=== PATIENT | male | born 1975 | race Caucasian/White ===

== ENCOUNTER 2017-06-17 13:18 | Emergency (ER) | payer OTHER ==
--- NOTE | 2017-06-17 14:44 | ED ---
Seizure HPI - General Chief Complaint: Seizure Stated Complaint: Seizure Time Seen by Provider: 06/17/17 14:03 Source: patient Mode of arrival: ambulatory Limitations: no limitations - History of Present Illness Initial Comments: 41-year-old male with no past medical history presented for evaluation of seizures. He states in the last month he has had 3 seizures however he denies any past medical history of seizures. He takes no daily medications and denies starting any new medications. Denies any preceding trauma however each syncopal moments/seizure has resulted in some trauma with bruising to his torso and his face. He states on his last seizure which occurred 2 days ago he fell flat on his face and when he came around he had bleeding from his nose and a black eye. He also bit his tongue during this episode. There are no preceding symptoms of chest pain, ataxia, shortness of breath, change in vision, or dizziness. Denies fevers chills nausea vomiting. His brother has witnessed 2 of these episodes and states that he falls and is shaking on the ground for a few seconds. When he comes back around he is confused for about a minute and then is back at baseline. - Related Data Home Medications Medication Instructions Recorded Confirmed No Known Home Medications [No 06/17/17 06/17/17 Known Home Medications] Allergies Allergy/AdvReac Type Severity Reaction Status Date / Time Penicillins Allergy Swelling Verified 06/17/17 14:08 Review of Systems ROS Statement: Those systems with pertinent positive or pertinent negative responses have been documented in the HPI. ROS Other: All systems not noted in ROS Statement are negative. Constitutional: Denies: fever, chills Eyes: Denies: eye pain, eye discharge, vision change ENT: Reports: epistaxis (during the last episode), other (laceration to tongue) . Denies: ear pain, throat pain, congestion Respiratory: Denies: cough, dyspnea, wheezes, hemoptysis Cardiovascular: Denies: chest pain, palpitations Endocrine: Denies: fatigue, polydipsia, polyuria Gastrointestinal: Denies: abdominal pain, nausea, vomiting, diarrhea, constipation, hematemesis, melena, hematochezia Genitourinary: Denies: urgency, dysuria, frequency, hematuria Musculoskeletal: Denies: back pain, arthralgia, myalgia Skin: Denies: rash, lesions Neurological: Reports: confusion (mild following the episode lasting less than a minute), other (seizure activity with syncope). Denies: headache, weakness, numbness, paresthesias Psychiatric: Denies: anxiety, depression Hematological/Lymphatic: Denies: easy bleeding, easy bruising Past Medical History Past Medical History: No Reported History History of Any Multi-Drug Resistant Organisms: None Reported Past Surgical History: No Surgical Hx Reported Past Psychological History: No Psychological Hx Reported Smoking Status: Current every day smoker Past Alcohol Use History: None Reported Past Drug Use History: None Reported General Exam Limitations: no limitations General appearance: alert, in no apparent distress Head exam: Present: normocephalic, other (ecchymosis around the right eye, possible deformity to nose) Eye exam: Present: normal appearance, PERRL, EOMI. Absent: scleral icterus, conjunctival injection, periorbital swelling ENT exam: Present: mucous membranes moist, other (laceration to tongue that is in early stages of healing) Neck exam: Present: normal inspection. Absent: tenderness, meningismus, lymphadenopathy Respiratory exam: Present: normal lung sounds bilaterally. Absent: respiratory distress, wheezes, rales, rhonchi, stridor Cardiovascular Exam: Present: regular rate, normal rhythm, normal heart sounds. Absent: systolic murmur, diastolic murmur, rubs, gallop, clicks GI/Abdominal exam: Present: soft, normal bowel sounds. Absent: distended, tenderness, guarding, rebound, rigid Rectal exam: Present: deferred Extremities exam: Present: normal inspection, full ROM, normal capillary refill. Absent: tenderness, pedal edema, joint swelling, calf tenderness Back exam: Present: full ROM, other (left lateral back bruising nontender to palpation). Absent: tenderness, CVA tenderness (R), CVA tenderness (L) Neurological exam: Present: alert, oriented X3, CN II-XII intact, normal gait, reflexes normal. Absent: altered, abnormal gait, motor sensory deficit Psychiatric exam: Present: normal affect, normal mood Skin exam: Present: warm, dry, intact, normal color. Absent: rash Course Vital Signs 06/17/17 06/17/17 06/17/17 13:31 14:47 15:04 Temperature 98.5 F Pulse Rate 85 74 Pulse Rate [ 101 H Right Sitting] Pulse Rate [ 115 H Right Standing] Pulse Rate [ 71 Right Supine] Respiratory 18 16 Rate Blood Pressure 143/89 153/90 Blood Pressure 136/93 [Right Arm Standing] Blood Pressure 142/90 [Right Arm Supine] Blood Pressure 137/97 [Sitting] O2 Sat by Pulse 100 98 Oximetry 06/17/17 16:00 Temperature 98.8 F Pulse Rate 89 Pulse Rate [ Right Sitting] Pulse Rate [ Right Standing] Pulse Rate [ Right Supine] Respiratory 16 Rate Blood Pressure 146/93 Blood Pressure [Right Arm Standing] Blood Pressure [Right Arm Supine] Blood Pressure [Sitting] O2 Sat by Pulse 98 Oximetry Medical Decision Making - Medical Decision Making 41-year-old male presented for evaluation of 3 seizures in the last month. Seizures were witnessed and lasted less than a minute. He would come around and be confused for less than a minute and then be back at baseline. There is no past medical history of seizures. No other changes in his medical history at this time. On physical examination he does have bruising to the right eye, left lateral back, but otherwise no abnormalities. Cranial nerves II through XII intact without focal neurologic deficits and he has normal gait and station. Given that this is his first episode of syncope/seizures we'll obtain a CT head as well as baseline labs. We'll also get orthostatic vitals. Labs revealed no significant abnormalities and CT head showed no acute process. The patient was reevaluated and had no change in his physical exam. He was informed of all results and through shared decision making was informed he would be discharged with instructions to not return to work until cleared by neurologist. His further advised that he could not drive a car or operate heavy machinery. Further given return instructions. Patient acknowledged an understanding of all phonation provided and agreed with this plan of care. - Lab Data Result diagrams: 06/17/17 14:50 06/17/17 14:50 Lab Results 06/17/17 06/17/17 06/17/17 Range/Units 14:50 14:50 14:50 WBC 8.8 (3.8-10.6) k/uL RBC 4.24 L (4.30-5.90) m/uL Hgb 13.7 (13.0-17.5) gm/dL Hct 41.4 (39.0-53.0) % MCV 97.7 (80.0-100.0) fL MCH 32.4 (25.0-35.0) pg MCHC 33.1 (31.0-37.0) g/dL RDW 13.3 (11.5-15.5) % Plt Count 92 L (150-450) k/uL Neutrophils % 73 % Lymphocytes % 9 % Monocytes % 7 % Eosinophils % 9 % Basophils % 0 % Neutrophils # 6.4 (1.3-7.7) k/uL Lymphocytes # 0.8 L (1.0-4.8) k/uL Monocytes # 0.6 (0-1.0) k/uL Eosinophils # 0.8 H (0-0.7) k/uL Basophils # 0.0 (0-0.2) k/uL Sodium 136 L (137-145) mmol/L Potassium 3.8 (3.5-5.1) mmol/L Chloride 98 (98-107) mmol/L Carbon Dioxide 25 (22-30) mmol/L Anion Gap 13 mmol/L BUN 16 (9-20) mg/dL Creatinine 0.74 (0.66-1.25) mg/dL Est GFR (MDRD) Af Amer >60 (>60 ml/min/1.73 sqM) Est GFR (MDRD) Non-Af >60 (>60 ml/min/1.73 sqM) Glucose 97 (74-99) mg/dL Calcium 10.4 H (8.4-10.2) mg/dL Troponin I <0.012 (0.000-0.034) ng/mL 06/17/17 16:19 normal sinus rhythm with a ventricular rate of 75, EVA 152, QRS 84, QT/QTc 410/ 457. Disposition Clinical Impression: Syncope Disposition: HOME SELF-CARE Condition: Stable Instructions: New-Onset Seizure in Adults (ED) Additional Instructions: please follow up with the neurologist that is provided and discussed discharge paperwork. He must not drive or operate heavy machinery until cleared by a neurologist to return back to work. If her symptoms should continue or persist or usually have a recurrence he must come back to the ER immediately for further treatment and evaluation Referrals: None,Stated [Primary Care Provider] - 1-2 days Brisa Lowery MD [STAFF PHYSICIAN] - 1-2 days Time of Disposition: 16:18
[2017-06-17 14:52] VITALS: RESP 16
[2017-06-17 15:09] LABS: Anion Gap 13 mmol/L; Blood Urea Nitrogen 16 mg/dL (9-20); Calcium 10.4 mg/dL (8.4-10.2); Carbon Dioxide 25 mmol/L (22-30); Chloride 98 mmol/L (98-107); Glucose 97 mg/dL (74-99); Non-African American GFR(MDRD) >60 (>60 ml/min/1.73 sqM); Potassium 3.8 mmol/L (3.5-5.1); Sodium 136 mmol/L (137-145)
[2017-06-17 15:13] LABS: Basophils % (A) 0 %; CH 32.8; CHCM 33.7; Eosinophils # (A) 0.8 k/uL (0-0.7); Eosinophils % (A) 9 %; HCT 41.4 % (39.0-53.0); HDW 1.96; HGB 13.7 gm/dL (13.0-17.5); Luc # (Auto) 0.16; Luc % (Auto) 2; Lymphocytes # (A) 0.8 k/uL (1.0-4.8); Lymphocytes % (A) 9 %; MCH 32.4 pg (25.0-35.0); MCHC 33.1 g/dL (31.0-37.0); MCV 97.7 fL (80.0-100.0); Mean Platelet Volume 8.9; Monocytes # (A) 0.6 k/uL (0-1.0); Monocytes % (A) 7 %; Neutrophils # (A) 6.4 k/uL (1.3-7.7); Neutrophils % (A) 73 %; RBC 4.24 m/uL (4.30-5.90); RDW 13.3 % (11.5-15.5); WBC 8.8 k/uL (3.8-10.6)
--- NOTE | 2017-06-17 15:39 | CT ---
EXAMINATION TYPE: CT brain wo con DATE OF EXAM: 06/17/2017 COMPARISON: NONE INDICATION: Recent seizures, history of seizures. DLP: 990.60 mGycm, Automated exposure control for dose reduction was used. CONTRAST: None CT of the brain is performed utilizing 3 mm thick sections through the posterior fossa and 3 mm thick sections through the remaining calvarium. Study is performed within 24 hours of arrival to the hosp [facility]. No abnormal hyperdensity is present to suggest an acute intracranial hemorrhage. No mass lesion is evident. No acute infarcts are evident. Ventricles and sulci are appropriate for the patient age. Paranasal sinuses and mastoid air cells within the [id number] are clear. IMPRESSIONS: 1. Normal CT Brain
[2017-06-17 16:01] VITALS: BP 146/93; PULSE 89; TEMP 98.8
== END 2017-06-17 16:25 | disposition home or self-care (01) ==
LOC: EC 13:18
DX: R55 Syncope and collapse (principal); R41.0 Disorientation, unspecified; F17.200 Nicotine dependence, unspecified, uncomplicated; Z88.0 Allergy status to penicillin
CPT/HCPCS: 36415; 70450; 80048; 84484; 85025; 93005; 99285

== ENCOUNTER 2019-08-04 15:58 | Observation (INO) | payer OTHER ==
[2019-08-04 18:18] LABS: Basophils % (A) 1 %; Eosinophils # (A) 0.1 k/uL (0-0.7); Eosinophils % (A) 1 %; HCT 48.1 % (39.0-53.0); HGB 15.7 gm/dL (13.0-17.5); Lymphocytes # (A) 1.9 k/uL (1.0-4.8); Lymphocytes % (A) 29 %; MCH 29.6 pg (25.0-35.0); MCHC 32.7 g/dL (31.0-37.0); MCV 90.3 fL (80.0-100.0); Mean Platelet Volume 6.9; Monocytes # (A) 0.5 k/uL (0-1.0); Monocytes % (A) 7 %; Neutrophils # (A) 3.8 k/uL (1.3-7.7); Neutrophils % (A) 60 %; Platelet Count 275 k/uL (150-450); RBC 5.33 m/uL (4.30-5.90); RDW 13.8 % (11.5-15.5); WBC 6.3 k/uL (3.8-10.6)
--- NOTE | 2019-08-04 18:21 | ED ---
General Adult HPI - General Chief complaint: Recheck/Abnormal Lab/Rx Stated complaint: alcohol detox Time Seen by Provider: 08/04/19 16:58 Source: patient Mode of arrival: ambulatory Limitations: no limitations - History of Present Illness Initial comments: Patient is a 43-year-old male with history of alcohol abuse presenting to the emergency department with chief complaint of alcohol intoxication. Patient reports he was sober for about 6 months ago as to regular AA meetings. Patient reports about a week ago his family member of suicide. Patient reports he began drinking again and has not stopped since. Patient reports drinking more than a fifth earlier today. Patient reports he contacted his AA sponsors was suggested he come to the ED for further evaluation/detoxication until he is able to be transferred to [place] for further management. Patient denies taking medication. Patient denies suicidal thoughts or ideation. Denies any some homicidal thoughts or ideations - Related Data Home Medications Medication Instructions Recorded Confirmed No Known Home Medications 06/17/17 06/17/17 Allergies Allergy/AdvReac Type Severity Reaction Status Date / Time Penicillins Allergy Swelling Verified 08/04/19 16:26 Review of Systems ROS Statement: Those systems with pertinent positive or pertinent negative responses have been documented in the HPI. ROS Other: All systems not noted in ROS Statement are negative. Past Medical History Past Medical History: No Reported History History of Any Multi-Drug Resistant Organisms: None Reported Past Surgical History: No Surgical Hx Reported Past Psychological History: Depression, PTSD Smoking Status: Current every day smoker Past Alcohol Use History: Abuse, Daily, Heavy Past Drug Use History: None Reported General Exam Limitations: no limitations General appearance: alert, in no apparent distress Head exam: Present: atraumatic, normocephalic, normal inspection Eye exam: Present: normal appearance, PERRL, EOMI Pupils: Present: normal accommodation ENT exam: Present: normal exam, normal oropharynx, mucous membranes moist, TM's normal bilaterally, normal external ear exam Neck exam: Present: normal inspection, full ROM Respiratory exam: Present: normal lung sounds bilaterally Cardiovascular Exam: Present: regular rate, normal rhythm, normal heart sounds Extremities exam: Present: normal inspection, full ROM Back exam: Present: normal inspection, full ROM Neurological exam: Present: alert, oriented X3 Psychiatric exam: Present: normal affect, normal mood Skin exam: Present: warm, dry, intact, normal color Course Vital Signs 08/04/19 16:26 Temperature 98 F Pulse Rate 103 H Respiratory 18 Rate Blood Pressure 153/107 O2 Sat by Pulse 96 Oximetry Medical Decision Making - Medical Decision Making Patient is a 43-year-old male with history of to alcohol abuse presenting to emergency Department with a chief complaint alcohol intoxication. Examination is unremarkable. Patient has no complaints at this time. Patient had a BAT of 0.304. Patient will be admitted further medical management. CBC unremarkable. CMP still pending. Urine drug screen pending. She will be admitted for further management. Case discussed with Dr. León. Admitting physician is Dr. James Disposition Clinical Impression: Alcohol intoxication Disposition: ADMITTED IP TO THIS HOSP Condition: Stable Instructions (If sedation given, give patient instructions): Abuse of Alcohol (DC) Additional Instructions: Patient will be admitted Is patient prescribed a controlled substance at d/c from ED?: No Referrals: None,Stated [Primary Care Provider] - 1-2 days Time of Disposition: 18:20
[2019-08-04 18:36] LABS: ALT 25 U/L (4-49); AST 46 U/L (17-59); African American GFR (CKD) >90 (>60 ml/min/1.73 sqM); Alkaline Phosphatase 76 U/L (38-126); Anion Gap 13 mmol/L; Blood Urea Nitrogen 9 mg/dL (9-20); Calcium 9.7 mg/dL (8.4-10.2); Carbon Dioxide 27 mmol/L (22-30); Chloride 105 mmol/L (98-107); Glucose 93 mg/dL (74-99); Non-African American GFR(CKD) >90 (>60 ml/min/1.73 sqM); Potassium 4.3 mmol/L (3.5-5.1); Sodium 145 mmol/L (137-145); Total Bilirubin 0.5 mg/dL (0.2-1.3); Total Protein 8.6 g/dL (6.3-8.2)
[2019-08-04 18:56] LABS: Appearance,Urine Clear (Clear); Bilirubin,Urine Negative (Negative); Blood,Urine Negative (Negative); Color,Urine Yellow; Glucose,Urine (UA) Negative (Negative); Ketones,Urine Trace (Negative); Leukocyte Esterase,Urine Negative (Negative); Nitrite,Urine Negative (Negative); PH, Urine 7.5 (5.0-8.0); Protein,Urine Trace (Negative); Specific Gravity,Urine 1.011 (1.001-1.035); Urobilinogen,Urine <2.0 mg/dL (<2.0)
[2019-08-04 19:08] LABS: Amphetamine Screen,Urine Not Detected (NotDetected); Cocaine Screen,Urine Not Detected (NotDetected); Opiate Screen,Urine Not Detected (NotDetected); Phencyclidine Screen,Urine Not Detected (NotDetected); Urn Cannabinoid Scrn Not Detected (NotDetected)
[2019-08-04 19:09] LABS: Barbiturate Screen,Urine Not Detected (NotDetected); Benzodiazepines Screen,Urine Not Detected (NotDetected); Methadone Screen, Urine Not Detected (NotDetected); Oxycodone Screen, Urine Not Detected (NotDetected); Tricyclic Antidepressant,Urine Not Detected (NotDetected)
[2019-08-04] MEDS ORDERED: NALOXONE 0.4 MG/ML 1 ML VIAL IV PRN (21:06)
[2019-08-04] MEDS ORDERED: THIAMINE 100 MG/ML 2 ML VIAL IM STA (21:07)
[2019-08-04] MEDS ORDERED: LORazepam 2 MG/ML INJ IV PRN ×2 (21:07)
[2019-08-04] MEDS: THIAMINE 100 MG TAB PO SCH (22:03)
[2019-08-04] MEDS: LORazepam 2 MG/ML INJ IV PRN (23:42)
[2019-08-05] MEDS: LORazepam 2 MG/ML INJ IV PRN ×5 (06:12→20:30)
[2019-08-05] MEDS: THIAMINE 100 MG TAB PO SCH ×2 (08:27→15:55)
--- NOTE | 2019-08-05 20:23 | HP ---
HISTORY AND PHYSICAL 43-year-old white male came in with alcohol abuse, presenting alcohol intoxication. His was sober for 6 months. He has been going to AA meetings and then a week ago a family member of suicide at which time he began drinking again and nonstop and drank more than a fifth earlier today. His AA sponsor sent him to the ED for intoxication and possibly transfer to [place] once he is better. The patient denies suicidal ideation. He states normally when he is in the hospital it takes 3 or 4 days for him to detox. MEDICATIONS: None. ALLERGIES: PENICILLIN. REVIEW OF SYSTEMS: Fourteen-point review of systems negative except for mentioned in HPI. PAST MEDICAL HISTORY: Depression, PTSD. SOCIAL HISTORY: Current everyday smoker, alcohol abuse heavy for multiple years. PHYSICAL EXAMINATION: Vital signs stable, afebrile. CARDIOVASCULAR: S1, S2. LUNGS: Clear. GI: Soft. HEMATOLOGY: Negative Homans. NEUROLOGIC: Mild tremor. PSYCH: Fair affect, giving appropriate answers. Temp 98, pulse is 103, respiratory 18-20, blood pressure 153/107, O2 saturation 96%. Blood alcohol level was 0.3. Detox protocol, CIWA protocol, monitor electrolytes, monitor for signs of seizures as he has a history of seizures due to alcohol in the past. Continue current treatment. MMODL / IJN: [id number] /
[2019-08-06] MEDS: LORazepam 2 MG/ML INJ IV PRN ×4 (05:53→20:30)
[2019-08-06 07:30] LABS: Basophils % (A) 1 %; Eosinophils # (A) 0.5 k/uL (0-0.7); Eosinophils % (A) 6 %; HCT 45.6 % (39.0-53.0); HGB 15.1 gm/dL (13.0-17.5); Lymphocytes # (A) 1.4 k/uL (1.0-4.8); Lymphocytes % (A) 17 %; MCH 30.7 pg (25.0-35.0); MCHC 33.1 g/dL (31.0-37.0); MCV 92.6 fL (80.0-100.0); Mean Platelet Volume 7.5; Monocytes # (A) 0.5 k/uL (0-1.0); Monocytes % (A) 6 %; Neutrophils # (A) 5.5 k/uL (1.3-7.7); Neutrophils % (A) 69 %; Platelet Count 232 k/uL (150-450); RBC 4.92 m/uL (4.30-5.90); RDW 13.6 % (11.5-15.5)
[2019-08-06] MEDS: THIAMINE 100 MG TAB PO SCH ×2 (07:32→17:00)
[2019-08-06 07:46] LABS: ALT 28 U/L (4-49); AST 50 U/L (17-59); African American GFR (CKD) >90 (>60 ml/min/1.73 sqM); Albumin 4.4 g/dL (3.5-5.0); Alkaline Phosphatase 57 U/L (38-126); Anion Gap 9 mmol/L; Blood Urea Nitrogen 15 mg/dL (9-20); Calcium 9.6 mg/dL (8.4-10.2); Carbon Dioxide 25 mmol/L (22-30); Chloride 102 mmol/L (98-107); Glucose 112 mg/dL (74-99); Non-African American GFR(CKD) >90 (>60 ml/min/1.73 sqM); Potassium 4.1 mmol/L (3.5-5.1); Sodium 136 mmol/L (137-145); Total Bilirubin 1.4 mg/dL (0.2-1.3); Total Protein 7.6 g/dL (6.3-8.2)
--- NOTE | 2019-08-06 17:02 | PN ---
PROGRESS NOTE This is a 43-year-old white male admitted with alcohol intoxication and alcohol withdrawal. He is on CIWA protocol, was given Ativan every 4 hours. Cardiovascular S1-S2. Lungs clear. Neurologic: He has minimal tremor. Psych: Fair mood and affect. He wants to go to [place] when he gets out of here. Possible discharge tomorrow. Check electrolytes. His labs have been stable his whole time he has been here. He is mostly to withdrawal. Possibly discharge home tomorrow. MMODL / IJN: [id number] /
[2019-08-07 08:14] VITALS: BP 131/87; PULSE 70; RESP 16; TEMP 97.8
[2019-08-07] MEDS: THIAMINE 100 MG TAB PO SCH (08:27)
--- NOTE | 2019-08-07 16:56 | P.DS ---
Providers Date of admission: 08/04/19 17:42 Expected date of discharge: 08/07/19 Attending physician: Vik James Primary care physician: Stated None Hospital Course: Final Diagnoses: Alcohol intoxication, DTs This is a 43-year-old gentleman admitted with alcohol intoxication, DTs. Maintained on CIWA protocol. Significant clinical improvement. Patient is being discharged to [facility] in a stable condition with guarded prognosis. EXAM: GENERAL: Alert and oriented 3, no acute distress CARDIOVASCULAR: S1, S2 regular.. No murmur RESPIRATION: Breath sounds clear, diminished in the bases. ABDOMEN: Soft, nontender . No guarding. no masses palpable. No ascites, Bowel sounds heard. NERVOUS SYSTEM: Cranial N 2-12 grossly normal. Moves all 4 limbs. No focal deficits. No tremors The impression and plan of care has been dictated as directed. : I performed a history and examination of this patient, discussed the same with the dictator. I agree with the dictator's note ,documented as a scribe. Any additional findings or plans will be noted. Patient Condition at Discharge: Stable Plan - Discharge Summary Discharge Rx Participant: No New Discharge Prescriptions: Continue Riboflavin [Vitamin B-2] 50 mg PO DAILY Thiamine [Vitamin B-1] 100 mg PO DAILY Multivitamins, Thera [Multivitamin (formulary)] 1 tab PO DAILY Vitamin D3(Unknown Dose) 1 tab PO DAILY Vitamin B Complex 1 cap PO DAILY Discharge Medication List Multivitamins, Thera [Multivitamin (formulary)] 1 tab PO DAILY 08/04/19 [History] Riboflavin [Vitamin B-2] 50 mg PO DAILY 08/04/19 [History] Thiamine [Vitamin B-1] 100 mg PO DAILY 08/04/19 [History] Vitamin B Complex 1 cap PO DAILY 08/04/19 [History] Vitamin D3(Unknown Dose) 1 tab PO DAILY 08/04/19 [History] Follow up Appointment(s)/Referral(s): [facility],Clinic [REFERRING] - 1 Week (Patient to make own appointment) Patient Instructions/Handouts: Abuse of Alcohol (DC), Alcohol Withdrawal (DC) Activity/Diet/Wound Care/Special Instructions: [place] Discharge Disposition: HOME SELF-CARE
== END 2019-08-07 13:47 | disposition home or self-care (01) ==
LOC: EC 15:58 → 4SSUR 17:42
PROVIDERS: ADMIT Family Medicine; ATTEND Family Medicine
DX: F10.229 Alcohol dependence with intoxication, unspecified (principal); F10.239 Alcohol dependence with withdrawal, unspecified; Y90.8 Blood alcohol level of 240 mg/100 ml or more; F32.9 Major depressive disorder, single episode, unspecified; F43.10 Post-traumatic stress disorder, unspecified; F17.200 Nicotine dependence, unspecified, uncomplicated
CPT/HCPCS: 96376 ×2; 96374; 96372; 82075; 99284; 36415; 80053 ×2; 85025 ×2; 81003; 80306; G0378 ×4; J2060 ×3; J3411

== ENCOUNTER 2020-02-18 15:05 | Inpatient (IN) | payer OTHER ==
[2020-02-18] MEDS ORDERED: ONDANSETRON 4 MG/2 ML VIAL IVP STA (15:26)
[2020-02-18] MEDS ORDERED: SODIUM CHLORIDE 0.9% 500 ML 500 ML IV STA (15:26)
[2020-02-18] MEDS ORDERED: LORazepam 2 MG/ML INJ IV STA (15:52)
--- NOTE | 2020-02-18 15:55 | ED ---
Alcohol HPI - General Chief Complaint: Alcohol Stated Complaint: alcohol detox Time Seen by Provider: 02/18/20 15:18 Source: patient Mode of arrival: ambulatory Limitations: no limitations - History of Present Illness Initial Comments: Patient is a 44-year-old male presenting to the emergency Department with complaints of alcohol withdrawal. Patient states he was sober for approximately 6 months and then this past week he has been binge drinking again. Patient states he had approximate 6-7 shots today. He states he is starting to have "shaking and hallucinations." Patient states he has had seizures in the past from withdrawal. He states he has not slept in approximately 2-3 days. He denies having any suicidal or homicidal thoughts today. He denies having pain anywhere. He admits to some mild nausea, no vomiting, no recent fever or chil ls. He denies any chest pain or shortness of breath. He has no further complaints at this time. Upon arrival to the ER, his vital signs are stable. - Related Data Home Medications Medication Instructions Recorded Confirmed Multivitamins, Thera [Multivitamin 1 tab PO DAILY 08/04/19 08/04/19 (formulary)] Riboflavin (Vitamin B2) [Vitamin 50 mg PO DAILY 08/04/19 08/04/19 B-2] Thiamine [Vitamin B-1] 100 mg PO DAILY 08/04/19 08/04/19 Vitamin B Complex 1 cap PO DAILY 08/04/19 08/04/19 Vitamin D3(Unknown Dose) 1 tab PO DAILY 08/04/19 08/04/19 Allergies Allergy/AdvReac Type Severity Reaction Status Date / Time Penicillins Allergy Swelling/Ra Verified 02/18/20 15:17 Review of Systems ROS Statement: Those systems with pertinent positive or pertinent negative responses have been documented in the HPI. ROS Other: All systems not noted in ROS Statement are negative. Past Medical History Past Medical History: No Reported History Additional Past Medical History / Comment(s): [place] about 3 years History of Any Multi-Drug Resistant Organisms: None Reported Past Surgical History: No Surgical Hx Reported Past Anesthesia/Blood Transfusion Reactions: Unable to Obtain Past Psychological History: Depression, PTSD Past Alcohol Use History: Abuse, Daily, Heavy Past Drug Use History: None Reported General Exam - General Exam Comments Initial Comments: GENERAL: Patient is well-developed and well-nourished. Patient is nontoxic and in no acute distress, appears anxious, mild tremors. HEAD: Atraumatic, normocephalic. EYES: Pupils equal round and reactive to light, extraocular movements intact, sclera anicteric, conjunctiva are normal. Eyelids were unremarkable. ENT: TMs normal, nares patent, oropharynx clear without exudates. Moist mucous membranes. NECK: Normal range of motion, supple without lymphadenopathy or JVD. LUNGS: Unlabored respirations. Breath sounds clear to auscultation bilaterally and equal. No wheezes rales or rhonchi. HEART: Regular rate and rhythm without murmurs, rubs or gallops. ABDOMEN: Soft, nontender, normoactive bowel sounds. No guarding, no rebound. No masses appreciated. : Deferred MUSCULOSKELETAL: Normal extremities with adequate strength and normal range of motion, no pitting or edema. No clubbing or cyanosis. NEUROLOGICAL: Patient is alert and oriented x 3. Motor and sensory are also intact. Cranial nerves II through XII grossly intact. Normal speech, normal gait. Symmetrical smile. Mild tremors present PSYCH: Normal mood, normal affect. SKIN: Warm, Dry, normal turgor, no rashes or lesions noted. Limitations: no limitations Course Vital Signs 02/18/20 15:14 Temperature 98.2 F Pulse Rate 109 H Respiratory 18 Rate Blood Pressure 146/82 O2 Sat by Pulse 99 Oximetry Medical Decision Making - Medical Decision Making Patient is a 44-year-old male here for alcohol withdrawal. He has been sober for 6 months, started been drinking this week. He he does admit to drinking today. Patient's vital signs are stable, his exam is unremarkable. Patient is having some mild tremors. Patient's labs reveal no acute process, urine is normal, urine drug screen is negative. Patient's serum alcohol is 269. Patient does have some tremors. Patient was given Ativan is comfortable at this time. Patient will be admitted for alcohol intoxication, withdrawal. Patient was accepted by Dr. Martinez. Can discussed with Dr. León. - Lab Data Result diagrams: 02/18/20 15:44 02/18/20 15:44 Lab Results 02/18/20 02/18/20 02/18/20 Range/Units 15:44 15:44 16:14 WBC 11.0 H (3.8-10.6) k/uL RBC 5.35 (4.30-5.90) m/uL Hgb 15.1 (13.0-17.5) gm/dL Hct 47.2 (39.0-53.0) % MCV 88.1 (80.0-100.0) fL MCH 28.2 (25.0-35.0) pg MCHC 32.0 (31.0-37.0) g/dL RDW 12.9 (11.5-15.5) % Plt Count 272 (150-450) k/uL Neutrophils % 75 % Lymphocytes % 17 % Monocytes % 6 % Eosinophils % 1 % Basophils % 0 % Neutrophils # 8.2 H (1.3-7.7) k/uL Lymphocytes # 1.9 (1.0-4.8) k/uL Monocytes # 0.7 (0-1.0) k/uL Eosinophils # 0.1 (0-0.7) k/uL Basophils # 0.1 (0-0.2) k/uL Sodium 139 (137-145) mmol/L Potassium 3.9 (3.5-5.1) mmol/L Chloride 99 (98-107) mmol/L Carbon Dioxide 25 (22-30) mmol/L Anion Gap 15 mmol/L BUN 6 L (9-20) mg/dL Creatinine 0.74 (0.66-1.25) mg/dL Est GFR (CKD-EPI)AfAm >90 (>60 ml/min/1.73 sqM) Est GFR (CKD-EPI)NonAf >90 (>60 ml/min/1.73 sqM) Glucose 122 H (74-99) mg/dL Calcium 9.5 (8.4-10.2) mg/dL Total Bilirubin 0.7 (0.2-1.3) mg/dL AST 104 H (17-59) U/L ALT 38 (4-49) U/L Alkaline Phosphatase 95 (38-126) U/L Total Protein 8.3 H (6.3-8.2) g/dL Albumin 5.2 H (3.5-5.0) g/dL Urine Color Light Yellow Urine Appearance Clear (Clear) Urine pH 6.5 (5.0-8.0) Ur Specific [place] 1.005 (1.001-1.035) Urine Protein 1+ H (Negative) Urine Glucose (UA) Negative (Negative) Urine Ketones Negative (Negative) Urine Blood Small H (Negative) Urine Nitrite Negative (Negative) Urine Bilirubin Negative (Negative) Urine Urobilinogen <2.0 (<2.0) mg/dL Ur Leukocyte Esterase Negative (Negative) Urine RBC 1 (0-5) /hpf Urine WBC 1 (0-5) /hpf Urine Mucus Rare H (None) /hpf Urine Opiates Screen (NotDetected) Ur Oxycodone Screen (NotDetected) Urine Methadone Screen (NotDetected) Ur Propoxyphene Screen (NotDetected) Ur Barbiturates Screen (NotDetected) U Tricyclic Antidepress (NotDetected) Ur Phencyclidine Scrn (NotDetected) Ur Amphetamines Screen (NotDetected) U Methamphetamines Scrn (NotDetected) U Benzodiazepines Scrn (NotDetected) Urine Cocaine Screen (NotDetected) U Marijuana (THC) Screen (NotDetected) Serum Alcohol 269 H* mg/dL 02/18/20 Range/Units 16:14 WBC (3.8-10.6) k/uL RBC (4.30-5.90) m/uL Hgb (13.0-17.5) gm/dL Hct (39.0-53.0) % MCV (80.0-100.0) fL MCH (25.0-35.0) pg MCHC (31.0-37.0) g/dL RDW (11.5-15.5) % Plt Count (150-450) k/uL Neutrophils % % Lymphocytes % % Monocytes % % Eosinophils % % Basophils % % Neutrophils # (1.3-7.7) k/uL Lymphocytes # (1.0-4.8) k/uL Monocytes # (0-1.0) k/uL Eosinophils # (0-0.7) k/uL Basophils # (0-0.2) k/uL Sodium (137-145) mmol/L Potassium (3.5-5.1) mmol/L Chloride (98-107) mmol/L Carbon Dioxide (22-30) mmol/L Anion Gap mmol/L BUN (9-20) mg/dL Creatinine (0.66-1.25) mg/dL Est GFR (CKD-EPI)AfAm (>60 ml/min/1.73 sqM) Est GFR (CKD-EPI)NonAf (>60 ml/min/1.73 sqM) Glucose (74-99) mg/dL Calcium (8.4-10.2) mg/dL Total Bilirubin (0.2-1.3) mg/dL AST (17-59) U/L ALT (4-49) U/L Alkaline Phosphatase (38-126) U/L Total Protein (6.3-8.2) g/dL Albumin (3.5-5.0) g/dL Urine Color Urine Appearance (Clear) Urine pH (5.0-8.0) Ur Specific [place] (1.001-1.035) Urine Protein (Negative) Urine Glucose (UA) (Negative) Urine Ketones (Negative) Urine Blood (Negative) Urine Nitrite (Negative) Urine Bilirubin (Negative) Urine Urobilinogen (<2.0) mg/dL Ur Leukocyte Esterase (Negative) Urine RBC (0-5) /hpf Urine WBC (0-5) /hpf Urine Mucus (None) /hpf Urine Opiates Screen Not Detected (NotDetected) Ur Oxycodone Screen Not Detected (NotDetected) Urine Methadone Screen Not Detected (NotDetected) Ur Propoxyphene Screen Not Detected (NotDetected) Ur Barbiturates Screen Not Detected (NotDetected) U Tricyclic Antidepress Not Detected (NotDetected) Ur Phencyclidine Scrn Not Detected (NotDetected) Ur Amphetamines Screen Not Detected (NotDetected) U Methamphetamines Scrn Not Detected (NotDetected) U Benzodiazepines Scrn Not Detected (NotDetected) Urine Cocaine Screen Not Detected (NotDetected) U Marijuana (THC) Screen Not Detected (NotDetected) Serum Alcohol mg/dL Disposition Clinical Impression: Alcohol intoxication, Alcohol withdrawal Disposition: ADMITTED IP TO THIS HOSP Condition: Stable Is patient prescribed a controlled substance at d/c from ED?: No Referrals: None,Stated [Primary Care Provider] - 1-2 days Decision Date: 02/18/20 Decision Time: 17:15
[2020-02-18 16:06] LABS: Basophils # (A) 0.1 k/uL (0-0.2); Basophils % (A) 0 %; Eosinophils # (A) 0.1 k/uL (0-0.7); Eosinophils % (A) 1 %; HCT 47.2 % (39.0-53.0); HGB 15.1 gm/dL (13.0-17.5); Lymphocytes # (A) 1.9 k/uL (1.0-4.8); Lymphocytes % (A) 17 %; MCH 28.2 pg (25.0-35.0); MCV 88.1 fL (80.0-100.0); Mean Platelet Volume 7.1; Monocytes # (A) 0.7 k/uL (0-1.0); Monocytes % (A) 6 %; Neutrophils # (A) 8.2 k/uL (1.3-7.7); Neutrophils % (A) 75 %; Platelet Count 272 k/uL (150-450); RBC 5.35 m/uL (4.30-5.90); RDW 12.9 % (11.5-15.5)
[2020-02-18 16:19] LABS: ALT 38 U/L (4-49); AST 104 U/L (17-59); African American GFR (CKD) >90 (>60 ml/min/1.73 sqM); Albumin 5.2 g/dL (3.5-5.0); Alkaline Phosphatase 95 U/L (38-126); Anion Gap 15 mmol/L; Blood Urea Nitrogen 6 mg/dL (9-20); Calcium 9.5 mg/dL (8.4-10.2); Carbon Dioxide 25 mmol/L (22-30); Chloride 99 mmol/L (98-107); Glucose 122 mg/dL (74-99); Non-African American GFR(CKD) >90 (>60 ml/min/1.73 sqM); Potassium 3.9 mmol/L (3.5-5.1); Sodium 139 mmol/L (137-145); Total Bilirubin 0.7 mg/dL (0.2-1.3); Total Protein 8.3 g/dL (6.3-8.2)
[2020-02-18 16:26] LABS: Alcohol 269 mg/dL
[2020-02-18 16:32] LABS: Appearance,Urine Clear (Clear); Bilirubin,Urine Negative (Negative); Blood,Urine Small (Negative); Color,Urine Light Yellow; Glucose,Urine (UA) Negative (Negative); Ketones,Urine Negative (Negative); Leukocyte Esterase,Urine Negative (Negative); Mucus,Urine Rare /hpf; Nitrite,Urine Negative (Negative); PH, Urine 6.5 (5.0-8.0); Protein,Urine 1+ (Negative); RBC,Urine 1 /hpf (0-5); Specific Gravity,Urine 1.005 (1.001-1.035); Urobilinogen,Urine <2.0 mg/dL (<2.0); WBC,Urine 1 /hpf (0-5)
[2020-02-18 16:42] LABS: Amphetamine Screen,Urine Not Detected (NotDetected); Barbiturate Screen,Urine Not Detected (NotDetected); Benzodiazepines Screen,Urine Not Detected (NotDetected); Cocaine Screen,Urine Not Detected (NotDetected); Methadone Screen, Urine Not Detected (NotDetected); Opiate Screen,Urine Not Detected (NotDetected); Oxycodone Screen, Urine Not Detected (NotDetected); Phencyclidine Screen,Urine Not Detected (NotDetected); Tricyclic Antidepressant,Urine Not Detected (NotDetected); Urn Cannabinoid Scrn Not Detected (NotDetected)
[2020-02-18] MEDS ORDERED: NALOXONE 0.4 MG/ML 1 ML VIAL IV PRN (17:11)
[2020-02-18] MEDS ORDERED: ONDANSETRON 4 MG/2 ML VIAL IVP PRN (17:11)
[2020-02-18] MEDS ORDERED: THIAMINE 100 MG/ML 2 ML VIAL IM STA (17:13)
[2020-02-18] MEDS ORDERED: LORazepam 2 MG/ML INJ IV PRN ×2 (17:13)
[2020-02-18] MEDS: LORazepam 2 MG/ML INJ IV PRN ×2 (20:06→22:23)
[2020-02-18] MEDS: THIAMINE 100 MG TAB PO SCH (20:12)
--- NOTE | 2020-02-19 01:27 | P.HPIM ---
History of Present Illness H&P Date: 02/18/20 Chief Complaint: Acute alcoholic intoxication. Patient is a 44-year-old male with a known history of alcohol abuse who has been sober for the past 6 months came to the hospital with alcohol intoxication. Patient states that for the past 1 week he has been binge drinking. Patient started shaking and hallucinating and has not slept for the past 3 days. Patient states that he has history of withdrawal seizures but currently not on any antiepileptic medications.. Denied any suicidal or homicidal ideation. Denied any complaints of chest pain or shortness of. Patient does have nausea no episodes of vomiting. No fever no chills. Laboratory pressure WBC 11.0, hemoglobin is 15.1 and platelets 272 Sodium 139, potassium 3.9 and chloride 99, BUN 6 and creatinine 0.74 UA negative for infection Urine UDS is negative Serum alcohol level is 269 patient was tachycardic on admission Review of Systems Constitutional: Patient denies any fever or chills . No generalized weakness or weight loss. Abdomen: Patient denied nausea vomiting and diarrhea and abdominal pain. Cardiovascular: Patient denies any chest pain or short of breath no palpitations. Respiratory: patient denied any coughoe sputum production. No shortness of breath Neurologic: Patient denied any numbness or tingling headache. Musculoskeletal: Patient denies any complaints of joint swelling or deformity. Skin: Negative Psychiatric: Negative Endocrine: No heat or cold intolerance. No recent weight gain. Genitourinary: No dysuria or hematuria. All other 14 point ROS negative except the above Past Medical History Past Medical History: No Reported History Additional Past Medical History / Comment(s): [place] about 3 years History of Any Multi-Drug Resistant Organisms: None Reported Past Surgical History: No Surgical Hx Reported Past Anesthesia/Blood Transfusion Reactions: Unable to Obtain Past Psychological History: Depression, PTSD Smoking Status: Current every day smoker Past Alcohol Use History: Abuse, Daily, Heavy Additional Past Alcohol Use History / Comment(s): Starting smoking 22 years old. Smoke a pack a day Past Drug Use History: None Reported Medications and Allergies Home Medications Medication Instructions Recorded Confirmed Type Multivitamins, Thera [Multivitamin 1 tab PO DAILY 08/04/19 02/18/20 History (formulary)] Riboflavin (Vitamin B2) [Vitamin 50 mg PO DAILY 08/04/19 02/18/20 History B-2] Thiamine [Vitamin B-1] 100 mg PO DAILY 08/04/19 02/18/20 History Vitamin B Complex 1 cap PO DAILY 08/04/19 02/18/20 History Cholecalciferol [Vitamin D3 (25 2,000 unit PO DAILY 02/18/20 02/18/20 History Mcg = 1000 Iu)] Allergies Allergy/AdvReac Type Severity Reaction Status Date / Time Penicillins Allergy Swelling/Ra Verified 02/18/20 17:47 sh Physical Exam Vitals: Vital Signs Temp Pulse Resp BP Pulse Ox 02/18/20 19:43 16 02/18/20 17:52 98.3 F 107 H 16 133/77 98 02/18/20 15:14 98.2 F 109 H 18 146/82 99 Intake and Output 02/18/20 02/18/20 02/19/20 14:59 22:59 06:59 Intake Total 300 Balance 300 Intake: Oral 300 Other: Voiding Method Toilet Weight 79.379 kg PHYSICAL EXAMINATION: Patient is lying in the bed comfortably, no acute distress, awake alert and oriented.. HEENT: Normocephalic. Neck is supple. Pupils reactive. Nostrils clear. Oral cavity is moist. Ears reveal no drainage. Neck reveals no JVD, carotid bruits, or thyromegaly. CHEST EXAMINATION: Trachea is central. Symmetrical expansion. Lung calvert clear to auscultation and percussion. CARDIAC: Normal S1, S2 with no gallops. No murmurs ABDOMEN: Soft. Bowel sounds normal. No organomegaly. No abdominal bruits. Extremities: reveal no edema. No clubbing or cyanosis Neurologically awake, alert, oriented x3 with well-coordinated movements. No focal deficits noted Skin: No rash or skin lesions. Psychiatric: Coperative. Nonsuicidal Musculoskeletal: No joint swelling or deformity. Normal range of motion. Results CBC & Chem 7: 02/18/20 15:44 02/18/20 15:44 Labs: Abnormal Lab Results - Last 24 Hours (Table) 02/18/20 02/18/20 02/18/20 Range/Units 15:44 15:44 16:14 WBC 11.0 H (3.8-10.6) k/uL Neutrophils # 8.2 H (1.3-7.7) k/uL BUN 6 L (9-20) mg/dL Glucose 122 H (74-99) mg/dL AST 104 H (17-59) U/L Total Protein 8.3 H (6.3-8.2) g/dL Albumin 5.2 H (3.5-5.0) g/dL Urine Protein 1+ H (Negative) Urine Blood Small H (Negative) Urine Mucus Rare H (None) /hpf Serum Alcohol 269 H* mg/dL Thrombosis Risk Factor Assmnt - DVT/VTE Prophylaxis DVT/VTE Prophylaxis: Pharmacologic Prophylaxis ordered Assessment and Plan Assessment: Acute alcohol intoxication Generalized tremors and shakiness monitor for withdrawal symptoms History of alcohol abuse has been sober for the past 6 months and binge drinking for the past 1 week History of alcohol withdrawal seizures Sinus tachycardia DVT prophylaxis with heparin subcu Plan: Patient will be continued on IV hydration, thiamine and folic acid and monitor for withdrawal symptoms. Follow-up closely. Time with Patient: Greater than 30
[2020-02-19] MEDS: SODIUM CHLORIDE 0.9% 1,000 ML IV SCH ×3 (01:32→17:07)
[2020-02-19] MEDS: LORazepam 2 MG/ML INJ IV PRN ×4 (01:32→21:09)
[2020-02-19] MEDS: HEPARIN SODIUM,PORCINE 5,000 UNIT/ML 1 ML VIAL SQ SCH ×3 (07:35→23:56)
[2020-02-19] MEDS: ACETAMINOPHEN TAB 325 MG TAB PO PRN (07:35)
[2020-02-19] MEDS: THIAMINE 100 MG TAB PO SCH ×2 (07:35→17:07)
[2020-02-19] MEDS: FOLIC ACID 1 MG TAB PO SCH (07:35)
--- NOTE | 2020-02-20 02:17 | P.PN ---
Subjective Progress Note Date: 02/19/20 Principal diagnosis: Acute alcohol withdrawal symptoms Patient is a 44-year-old male with a known history of alcohol abuse who has been sober for the past 6 months came to the hospital with alcohol intoxication. Patient states that for the past 1 week he has been binge drinking. Patient started shaking and hallucinating and has not slept for the past 3 days. Patient states that he has history of withdrawal seizures but currently not on any antiepileptic medications.. Denied any suicidal or homicidal ideation. Denied any complaints of chest pain or shortness of. Patient does have nausea no episodes of vomiting. No fever no chills. Laboratory pressure WBC 11.0, hemoglobin is 15.1 and platelets 272 Sodium 139, potassium 3.9 and chloride 99, BUN 6 and creatinine 0.74 UA negative for infection Urine UDS is negative Serum alcohol level is 269 patient was tachycardic on admission 02/19/2020 Patient is currently lying in the bed. Still very anxious and sweaty. Requiring IV Ativan. No complaints of chest pain or shortness of breath. Currently awake alert oriented x3. Anticipate discharge in the next 24 hours. Objective - Vital Signs Vital signs: Vital Signs Temp 98.4 F 02/19/20 18:53 Pulse 89 02/19/20 18:53 Resp 18 02/19/20 18:53 BP 146/83 02/19/20 18:53 Pulse Ox 96 02/19/20 18:53 Intake & Output 02/19/20 02/19/20 02/20/20 06:59 18:59 06:59 Intake Total 1250 1450 Balance 1250 1450 Intake: Intake, IV Titration 650 650 Amount Sodium Chloride 0.9% 1, 650 650 000 ml @ 130 mls/hr IV . [id number] [facility] Rx#:[id number] Oral 600 800 Other: Voiding Method Toilet Toilet # Voids 2 - Exam PHYSICAL EXAMINATION: Patient is lying in the bed, no acute distress, awake alert and oriented.Shaking with tremors in bilateral hands.. HEENT: Normocephalic. Neck is supple. Pupils reactive. Nostrils clear. Oral cavity is moist. Ears reveal no drainage. Neck reveals no JVD, carotid bruits, or thyromegaly. CHEST EXAMINATION: Trachea is central. Symmetrical expansion. Lung calvert clear to auscultation and percussion. CARDIAC: Normal S1, S2 with no gallops. No murmurs ABDOMEN: Soft. Bowel sounds normal. No organomegaly. No abdominal bruits. Extremities: reveal no edema. No clubbing or cyanosis Neurologically awake, alert, oriented x3 with well-coordinated movements. No focal deficits noted Skin: No rash or skin lesions. Psychiatric: Coperative. Nonsuicidal Musculoskeletal: No joint swelling or deformity. Normal range of motion. - Labs CBC & Chem 7: 02/18/20 15:44 02/18/20 15:44 Assessment and Plan Assessment: Acute alcohol intoxication Generalized tremors and shakiness Due to alcohol withdrawal symptoms History of alcohol abuse has been sober for the past 6 months and binge drinking for the past 1 week History of alcohol withdrawal seizures Sinus tachycardia DVT prophylaxis with heparin subcu Plan: Patient will be continued on IV hydration, thiamine and folic acid and monitor for withdrawal symptoms. Follow-up closely. Time with Patient: Greater than 30
[2020-02-20] MEDS: SODIUM CHLORIDE 0.9% 1,000 ML IV SCH ×4 (02:22→22:29)
[2020-02-20 08:14] LABS: Basophils % (A) 0 %; Eosinophils # (A) 0.3 k/uL (0-0.7); Eosinophils % (A) 3 %; HCT 41.7 % (39.0-53.0); HGB 13.7 gm/dL (13.0-17.5); Lymphocytes # (A) 1.3 k/uL (1.0-4.8); Lymphocytes % (A) 13 %; Mean Platelet Volume 7.7; Monocytes # (A) 0.4 k/uL (0-1.0); Monocytes % (A) 4 %; Neutrophils # (A) 8.1 k/uL (1.3-7.7); Neutrophils % (A) 79 %; Platelet Count 174 k/uL (150-450); RBC 4.59 m/uL (4.30-5.90); RDW 12.8 % (11.5-15.5); WBC 10.2 k/uL (3.8-10.6)
[2020-02-20 08:25] LABS: African American GFR (CKD) >90 (>60 ml/min/1.73 sqM); Anion Gap 5 mmol/L; Blood Urea Nitrogen 12 mg/dL (9-20); Calcium 8.3 mg/dL (8.4-10.2); Carbon Dioxide 25 mmol/L (22-30); Chloride 105 mmol/L (98-107); Glucose 100 mg/dL (74-99); Non-African American GFR(CKD) >90 (>60 ml/min/1.73 sqM); Potassium 4.1 mmol/L (3.5-5.1); Sodium 135 mmol/L (137-145)
[2020-02-20] MEDS: HEPARIN SODIUM,PORCINE 5,000 UNIT/ML 1 ML VIAL SQ SCH ×3 (08:55→22:29)
[2020-02-20] MEDS: THIAMINE 100 MG TAB PO SCH ×2 (08:55→17:25)
[2020-02-20] MEDS: FOLIC ACID 1 MG TAB PO SCH (08:55)
[2020-02-20] MEDS: ACETAMINOPHEN TAB 325 MG TAB PO PRN (09:00)
--- NOTE | 2020-02-20 15:19 | PN ---
PROGRESS NOTE DATE OF SERVICE: 02/20/2020 This 44-year-old gentleman who was admitted with acute alcohol intoxication also had generalized tremors and acute delirium tremens. The patient is being closely monitored. Patient also had abnormal labs, including hyponatremia and alcoholic hepatitis. CIWA protocol is ongoing. Past medical history reviewed. REVIEW OF SYSTEMS: CARDIOVASCULAR SYSTEM: No angina, palpitations. RESPIRATORY SYSTEM: As mentioned earlier. GI: As mentioned earlier. : No dysuria or retention. NERVOUS SYSTEM: As mentioned earlier. CURRENT MEDICATIONS: Reviewed. They include: 1. Tylenol 650 q.6 p.r.n. 2. Folic acid 1 mg p.o. daily. 3. Heparin 5000 units subcutaneously q.8. 4. Ativan. 5. Narcan. 6. Zofran. 7. Vitamin B1. PHYSICAL EXAMINATION: Patient is alert and oriented x3. Pulse 81, blood pressure 133/83, respirations 17, temperature 98.4, pulse ox 94% on room air. HEENT: Conjunctivae normal. Oral mucosa moist. NECK: No jugular venous distention. No carotid bruit. No lymph node enlargement. CARDIOVASCULAR SYSTEM: S1, S2 muffled. RESPIRATORY SYSTEM: Breath sounds diminished at the bases. No rhonchi. No crackles. ABDOMEN: Soft. Non-tender. No mass palpable. LEGS: No edema. No swelling. NERVOUS SYSTEM: Higher functions as mentioned earlier. Moves all 4 limbs. Diffuse tremors and diffuse weakness are also present. LABS: Labs at this time show WBC 10.2, sodium 135 and glucose 100. AST is 104. ASSESSMENT: 1. Acute alcohol intoxication and acute delirium tremens. 2. Generalized tremors and shakiness due to acute delirium tremens. 3. History of alcohol withdrawal seizures. 4. Sinus tachycardia. 5. Hyponatremia. 6. Increased white count, possibly reactive. 7. Acute alcoholic hepatitis. 8. History of depression, post-traumatic stress disorder. 9. History of nicotine dependence, continued ongoing. RECOMMENDATIONS AND DISCUSSION: In this 44-year-old gentleman who presented with multiple complex medical issues, we will monitor the patient closely, continue the current medications, continue symptomatic treatment. Continue the multivitamin supplement. Continue CIWA protocol. Otherwise, increase ambulation. Prognosis guarded because of multiple complex medical issues. Resume the home medications. Further recommendations to follow. This patient requires full admission to last more than 48 hours for diagnosing and evaluation and treatment of the above-mentioned multiple complex medical issues. Once again, the prognosis is guarded. Further recommendations to follow. Outpatient alcohol rehab and counseling are also suggested. KARINAL / IJN: [id number] /
[2020-02-20 19:41] VITALS: RESP 18
[2020-02-21 07:13] VITALS: BP 124/79; PULSE 69; TEMP 98
[2020-02-21] MEDS: SODIUM CHLORIDE 0.9% 1,000 ML IV SCH (07:18)
[2020-02-21] MEDS: HEPARIN SODIUM,PORCINE 5,000 UNIT/ML 1 ML VIAL SQ SCH (07:19)
[2020-02-21] MEDS: THIAMINE 100 MG TAB PO SCH (08:37)
[2020-02-21] MEDS: FOLIC ACID 1 MG TAB PO SCH (08:37)
[2020-02-21] MEDS ORDERED: MULTIVITAMINS, THERA 1 EACH TAB PO SCH (09:00)
[2020-02-21] MEDS ORDERED: RIBOFLAVIN 50 MG PO SCH (09:00)
[2020-02-21] MEDS ORDERED: NON FORMULARY DRUG (Vitamin B Complex [Vitamin B Complex] 1 CAP) PO SCH (09:00)
[2020-02-21] MEDS ORDERED: CHOLECALCIFEROL 1,000 UNIT TAB PO SCH (09:00)
--- NOTE | 2020-02-21 13:34 | P.DS ---
Providers Date of admission: 02/20/20 12:51 Expected date of discharge: 02/21/20 Attending physician: Carl Martinez Primary care physician: Stated None Hospital Course: Final diagnosis Acute alcohol intoxication And acute delirium tremens Generalized tremors and shakiness Due to Acute delirium tremens History of alcohol abuse has been sober for the past 6 months and binge drinking for the past 1 week History of alcohol withdrawal seizures Sinus tachycardia Hyponatremia Increased white blood count, possibly reactive Acute alcoholic hepatitis History of depression, posttraumatic stress disorder History of nicotine dependence, continued ongoing DVT prophylaxis Discharge disposition Patient is being Discharged in a stable condition with guarded prognosis to home. Patient instructed to follow-up with primary care provider along with community mental health and alcohol rehab upon discharge. Total time taken is greater than 35 minutes. History of present illness This is an 44-year-old male who was recently admitted with Alcohol intoxication and alcohol withdrawals and was being closely monitored. Patient was maintained on CIWA protocol. Patient is feeling much better and would like to go home. Discussed with the patient in detail about following up with her primary care provider and also community mental health and possible alcohol rehab and patient verbalized understanding. Patient had recently been sober for the previous 6 months and reports to binge drinking over the past week and not sleeping well. Patient was non-suicidal and denied any suicidal ideations. This morning patient's gait is steady on exam and tolerating diet with no reports of withdrawal noted. During hospitalization patient was found to have some abnormal labs including hyponatremia and alcoholic hepatitis. Discussed with the patient extensively about refraining from any alcohol intake. Currently no reports of chest pain, shortness of breath, or palpitations. Patient is afebrile. No reports of nausea or vomiting and patient is tolerating diet. Patient will be discharged home today. On exam vital signs are stable. Temp is 98.0F, pulse is 69, respirations are 18, blood pressure is 124/79, oxygen saturation is 97% on Room air. Cardio S1, S2 are muffled. Respiratory shows diminished breath sounds at the bases with No wheezing or rhonchi noted. Abdomen is soft and nontender. Nervous system shows No focal deficits. Please refer to medication reconciliation sheet for a list of medications. Patient Condition at Discharge: Stable Plan - Discharge Summary Discharge Rx Participant: Yes New Discharge Prescriptions: New Folic Acid 1 mg PO DAILY 30 Days #30 tab Continue Riboflavin (Vitamin B2) [Vitamin B-2] 50 mg PO DAILY Thiamine [Vitamin B-1] 100 mg PO DAILY Multivitamins, Thera [Multivitamin (formulary)] 1 tab PO DAILY Vitamin B Complex 1 cap PO DAILY Cholecalciferol [Vitamin D3 (25 Mcg = 1000 Iu)] 2,000 unit PO DAILY Discharge Medication List Multivitamins, Thera [Multivitamin (formulary)] 1 tab PO DAILY 08/04/19 [History] Riboflavin (Vitamin B2) [Vitamin B-2] 50 mg PO DAILY 08/04/19 [History] Thiamine [Vitamin B-1] 100 mg PO DAILY 08/04/19 [History] Vitamin B Complex 1 cap PO DAILY 08/04/19 [History] Cholecalciferol [Vitamin D3 (25 Mcg = 1000 Iu)] 2,000 unit PO DAILY 02/18/20 [History] Folic Acid 1 mg PO DAILY 30 Days #30 tab 02/21/20 [Rx] Follow up Appointment(s)/Referral(s): None,Stated [Primary Care Provider] - 1-2 days Patient Instructions/Handouts: Abuse of Alcohol (DC), Alcohol Withdrawal (DC) Activity/Diet/Wound Care/Special Instructions: activity limited until follow up follow up with primary care provider upon discharge follow up with alcohol rehab in the outpatient setting follow up with [facility] mental health upon discharge avoid alcohol intake Discharge Disposition: HOME SELF-CARE
== END 2020-02-21 11:36 | disposition home or self-care (01) | DRG 897 ==
LOC: EC 15:05 → 4SSUR 17:10 → OBSVTOIN 02-20 12:51
PROVIDERS: ADMIT Internal Medicine; ATTEND Internal Medicine
DX: F10.231 Alcohol dependence with withdrawal delirium (principal); E87.1 Hypo-osmolality and hyponatremia; F10.220 Alcohol dependence with intoxication, uncomplicated; Z11.59 Encounter for screening for other viral diseases; K70.10 Alcoholic hepatitis without ascites; F43.10 Post-traumatic stress disorder, unspecified; F32.9 Major depressive disorder, single episode, unspecified; F17.210 Nicotine dependence, cigarettes, uncomplicated; Y90.8 Blood alcohol level of 240 mg/100 ml or more; Z88.0 Allergy status to penicillin; Z79.899 Other long term (current) drug therapy
CPT/HCPCS: 36415; 80048; 80053; 80306; 80320; 81001; 85025; 96361; 96372; 96374; 96375; 99285

== ENCOUNTER 2022-01-12 16:52 | Observation (INO) | payer OTHER ==
[2022-01-12] MEDS ORDERED: SODIUM CHLORIDE 0.9% 1,000 ML IV STA ×2 (19:10→20:26)
[2022-01-12] MEDS ORDERED: ONDANSETRON 4 MG/2 ML VIAL IVP STA (19:11)
[2022-01-12] MEDS ORDERED: LORazepam 1 MG TAB PO STA (19:14)
[2022-01-12 19:33] LABS: Appearance,Urine Clear (Clear); Bilirubin,Urine Negative (Negative); Blood,Urine Negative (Negative); Color,Urine Light Yellow; Glucose,Urine (UA) Negative (Negative); Ketones,Urine Negative (Negative); Leukocyte Esterase,Urine Negative (Negative); Nitrite,Urine Negative (Negative); PH, Urine 6.5 (5.0-8.0); Protein,Urine Trace (Negative); Specific Gravity,Urine 1.006 (1.001-1.035); Urobilinogen,Urine <2.0 mg/dL (<2.0)
[2022-01-12 19:34] LABS: Basophils # (A) 0.1 k/uL (0-0.2); Basophils % (A) 2 %; Eosinophils # (A) 0.1 k/uL (0-0.7); Eosinophils % (A) 1 %; HCT 48.1 % (39.0-53.0); HGB 15.4 gm/dL (13.0-17.5); Lymphocytes # (A) 2.1 k/uL (1.0-4.8); Lymphocytes % (A) 40 %; MCH 30.6 pg (25.0-35.0); MCHC 32.1 g/dL (31.0-37.0); MCV 95.5 fL (80.0-100.0); Mean Platelet Volume 9.5; Monocytes # (A) 0.3 k/uL (0-1.0); Monocytes % (A) 6 %; Neutrophils # (A) 2.4 k/uL (1.3-7.7); Neutrophils % (A) 48 %; RBC 5.03 m/uL (4.30-5.90); RDW 12.8 % (11.5-15.5); WBC 5.1 k/uL (3.8-10.6)
[2022-01-12 19:44] LABS: ALT 173 U/L (4-49); AST 274 U/L (17-59); African American GFR (CKD) >90 (>60 ml/min/1.73 sqM); Albumin 5.2 g/dL (3.5-5.0); Alkaline Phosphatase 75 U/L (38-126); Anion Gap 17 mmol/L; Blood Urea Nitrogen 11 mg/dL (9-20); Calcium 9.1 mg/dL (8.4-10.2); Carbon Dioxide 26 mmol/L (22-30); Chloride 100 mmol/L (98-107); Glucose 116 mg/dL (74-99); Magnesium 2.3 mg/dL (1.6-2.3); Non-African American GFR(CKD) >90 (>60 ml/min/1.73 sqM); Potassium 4.4 mmol/L (3.5-5.1); Sodium 143 mmol/L (137-145); Total Bilirubin 0.9 mg/dL (0.2-1.3); Total Protein 9.4 g/dL (6.3-8.2)
[2022-01-12 20:16] LABS: Alcohol 469 mg/dL
--- NOTE | 2022-01-12 20:35 | ED ---
General Adult HPI - General Chief complaint: Alcohol Stated complaint: Detox Time Seen by Provider: 01/12/22 18:47 Source: patient, RN notes reviewed Mode of arrival: ambulatory Limitations: no limitations - History of Present Illness Initial comments: 46-year-old male presents to the emergency department accompanied by his mother for evaluation of EtOH withdrawal. Patient states he has been drinking 3-4 half pints of hard liquor for the past 7 consecutive days. States he has a history of alcoholism and has been in treatment before. Does not want to go to [facility] this time therefore came here. Reports that he had been sober for 45 days prior to this episode of binge drinking. Last EtOH intake was at 5 PM today. Reports mild shakiness. Does have a history of seizures due to alcohol withdrawal. Complains of decreased appetite. Denies fever, chills, headache, dizziness, chest pain, shortness of breath, abdominal pain, nausea, vomiting, diarrhea, or dysuria. - Related Data Home Medications Medication Instructions Recorded Confirmed Cholecalciferol [Vitamin D3 (25 50 mcg PO DAILY 01/12/22 01/12/22 Mcg = 1000 Iu)] Lisinopril [Prinivil] 10 mg PO DIRECTED 01/12/22 01/12/22 Multivitamins, Thera [Multivitamin 1 tab PO DAILY@1200 01/12/22 01/12/22 (formulary)] cloNIDine HCL [Catapres] 0.1 mg PO DIRECTED 01/12/22 01/12/22 Previous Rx's Medication Instructions Recorded Folic Acid 1 mg PO DAILY@1200 tab 11/14/21 Pantoprazole [Protonix] 40 mg PO AC-BRKFST 30 Days #30 tab 11/14/21 Thiamine [Vitamin B-1] 100 mg PO BID-W/MEALS tab 11/14/21 Allergies Allergy/AdvReac Type Severity Reaction Status Date / Time Penicillins Allergy Swelling/Ra Verified 01/12/22 23:30 Review of Systems ROS Statement: Those systems with pertinent positive or pertinent negative responses have been documented in the HPI. ROS Other: All systems not noted in ROS Statement are negative. Past Medical History Past Medical History: No Reported History Additional Past Medical History / Comment(s): Sezuire about 3 years, seizure 10/03/21 History of Any Multi-Drug Resistant Organisms: None Reported Past Surgical History: No Surgical Hx Reported Past Anesthesia/Blood Transfusion Reactions: Unable to Obtain Past Psychological History: Depression, PTSD Smoking Status: Current every day smoker Past Alcohol Use History: Abuse, Daily, Heavy Past Drug Use History: Marijuana - Past Family History Father Family Medical History: COPD General Exam Limitations: no limitations General appearance: alert, in no apparent distress, other (Well-developed, well- nourished male in no acute distress. Initial temperature 98.0, pulse 90, respirations 20, blood pressure 102/71, pulse ox 100% on room air.) Head exam: Present: atraumatic, normocephalic, normal inspection Eye exam: Present: normal appearance, PERRL, EOMI. Absent: scleral icterus, c onjunctival injection, periorbital swelling, periorbital tenderness ENT exam: Present: normal exam, normal oropharynx Neck exam: Present: normal inspection, full ROM. Absent: tenderness, meningismus, lymphadenopathy Respiratory exam: Present: normal lung sounds bilaterally. Absent: respiratory distress, wheezes, rales, rhonchi, stridor, chest wall tenderness Cardiovascular Exam: Present: regular rate, normal rhythm, normal heart sounds GI/Abdominal exam: Present: soft, normal bowel sounds. Absent: distended, tenderness, guarding, rebound, rigid Extremities exam: Present: normal inspection, full ROM, normal capillary refill. Absent: pedal edema Left Forearm Wrist exam: Absent: normal inspection (Left wrist deformity baseline per patient due to an injury at age 18 that did not heal properly.) Neurological exam: Present: alert, oriented X3, normal gait Expanded Speech: Present: fluid speech Cranial nerves: EOM's Intact: Normal, Nystagmus: Normal Cerebellar function: Finger to Nose: Normal Motor strength exam: RUE: 5, LUE: 5, RLE: 5, LLE: 5 Eye Response: (4) open spontaneously Motor Response: (6) obeys commands Verbal Response: (5) oriented [place] Total: 15 Psychiatric exam: Present: normal affect, normal mood Skin exam: Present: warm, dry, intact, normal color. Absent: rash Course Vital Signs 01/12/22 01/12/22 01/13/22 17:59 23:30 02:19 Temperature 98.0 F Pulse Rate 98 72 81 Respiratory 20 16 16 Rate Blood Pressure 102/71 110/63 120/97 O2 Sat by Pulse 100 99 Oximetry - Reevaluation(s) Reevaluation #1: 01/12/22 20:30 Patient is resting comfortably at this time. His mother remains present at bedside. He will be admitted to the hospital with acute alcohol intoxication. He is agreeable with this plan of care. Medical Decision Making - Medical Decision Making 46-year-old male with a past medical history of alcohol abuse presents to the [facility] department for ETOH detox. Upon exam, patient is well-appearing and in no acute distress. He is able to answer questions appropriately and ambulates without difficulty. Neurologically intact with no focal deficits. Patient has been consuming 3-4 half pints of hard liquor for the past 7 days. Last intake was 5 PM this evening. Seizure precautions were initiated. Patient was given IV fluids, Zofran, and oral Ativan. Laboratory studies were reviewed. Liver enzymes are elevated which is not unusual for patient, though are higher on this visit than previously. His drug screen is positive for marijuana which he admits to using regularly. Alcohol level was 469. Patient will be admitted to the hospital. I did speak with Dr. Villalta who agrees to accept this patient. Attending: Leah. - Lab Data Result diagrams: 01/12/22 19:25 01/12/22 19:25 Lab Results 01/12/22 01/12/22 01/12/22 Range/Units 19:25 19:25 19:25 WBC 5.1 (3.8-10.6) k/uL RBC 5.03 (4.30-5.90) m/uL Hgb 15.4 (13.0-17.5) gm/dL Hct 48.1 (39.0-53.0) % MCV 95.5 (80.0-100.0) fL MCH 30.6 (25.0-35.0) pg MCHC 32.1 (31.0-37.0) g/dL RDW 12.8 (11.5-15.5) % Plt Count 92 L (150-450) k/uL MPV 9.5 Neutrophils % 48 % Lymphocytes % 40 % Monocytes % 6 % Eosinophils % 1 % Basophils % 2 % Neutrophils # 2.4 (1.3-7.7) k/uL Lymphocytes # 2.1 (1.0-4.8) k/uL Monocytes # 0.3 (0-1.0) k/uL Eosinophils # 0.1 (0-0.7) k/uL Basophils # 0.1 (0-0.2) k/uL Manual Slide Review Performed Sodium 143 (137-145) mmol/L Potassium 4.4 (3.5-5.1) mmol/L Chloride 100 (98-107) mmol/L Carbon Dioxide 26 (22-30) mmol/L Anion Gap 17 mmol/L BUN 11 (9-20) mg/dL Creatinine 0.80 (0.66-1.25) mg/dL Est GFR (CKD-EPI)AfAm >90 (>60 ml/min/1.73 sqM) Est GFR (CKD-EPI)NonAf >90 (>60 ml/min/1.73 sqM) Glucose 116 H (74-99) mg/dL Calcium 9.1 (8.4-10.2) mg/dL Magnesium 2.3 (1.6-2.3) mg/dL Total Bilirubin 0.9 (0.2-1.3) mg/dL AST 274 H (17-59) U/L ALT 173 H (4-49) U/L Alkaline Phosphatase 75 (38-126) U/L Total Protein 9.4 H (6.3-8.2) g/dL Albumin 5.2 H (3.5-5.0) g/dL Urine Color Light Yellow Urine Appearance Clear (Clear) Urine pH 6.5 (5.0-8.0) Ur Specific [place] 1.006 (1.001-1.035) Urine Protein Trace H (Negative) Urine Glucose (UA) Negative (Negative) Urine Ketones Negative (Negative) Urine Blood Negative (Negative) Urine Nitrite Negative (Negative) Urine Bilirubin Negative (Negative) Urine Urobilinogen <2.0 (<2.0) mg/dL Ur Leukocyte Esterase Negative (Negative) Urine Opiates Screen Not Detected (NotDetected) Ur Oxycodone Screen Not Detected (NotDetected) Urine Methadone Screen Not Detected (NotDetected) Ur Propoxyphene Screen Not Detected (NotDetected) Ur Barbiturates Screen Not Detected (NotDetected) U Tricyclic Antidepress Not Detected (NotDetected) Ur Phencyclidine Scrn Not Detected (NotDetected) Ur Amphetamines Screen Not Detected (NotDetected) U Methamphetamines Scrn Not Detected (NotDetected) U Benzodiazepines Scrn Not Detected (NotDetected) Urine Cocaine Screen Not Detected (NotDetected) U Marijuana (THC) Screen Detected H (NotDetected) Serum Alcohol 469 H* mg/dL - EKG Data EKG shows normal: sinus rhythm Rate: normal EKG Comments: EKG obtained at 1956 shows sinus rhythm with ventricular rate 71, GA interval 153, QRS duration 85, QT/QTC 419/442. Interpretation normal ECG. Disposition Clinical Impression: Acute alcohol intoxication Disposition: ADMITTED IP TO THIS [facility] Condition: Serious Decision Date: 01/12/22 Decision Time: 22:07
[2022-01-12 20:39] LABS: Cocaine Screen,Urine Not Detected (NotDetected); Opiate Screen,Urine Not Detected (NotDetected); Phencyclidine Screen,Urine Not Detected (NotDetected); Urn Cannabinoid Scrn Detected (NotDetected)
[2022-01-12 20:40] LABS: Amphetamine Screen,Urine Not Detected (NotDetected); Barbiturate Screen,Urine Not Detected (NotDetected); Benzodiazepines Screen,Urine Not Detected (NotDetected); Methadone Screen, Urine Not Detected (NotDetected); Oxycodone Screen, Urine Not Detected (NotDetected); Tricyclic Antidepressant,Urine Not Detected (NotDetected)
[2022-01-12] MEDS ORDERED: KETOROLAC 15 MG/ML 1 ML VIAL IVP PRN (22:25)
[2022-01-12] MEDS ORDERED: ACETAMINOPHEN TAB 325 MG TAB PO PRN (22:25)
[2022-01-12] MEDS ORDERED: NALOXONE 0.4 MG/ML 1 ML VIAL IV PRN (22:25)
[2022-01-12] MEDS ORDERED: ONDANSETRON 4 MG/2 ML VIAL IVP PRN (22:25)
[2022-01-12 22:34] LABS: Platelet Count 92 k/uL (150-450)
[2022-01-13] MEDS ORDERED: THIAMINE 100 MG/ML 2 ML VIAL IM STA (00:08)
--- NOTE | 2022-01-13 00:09 | P.HPIM ---
History of Present Illness H&P Date: 01/12/22 The patient is a 46-year-old male with a PMH of EtOH abuse and hypertension who presents to the emergency room for alcohol intoxication. The patient reports that he is in fact here for withdrawal symptoms, although states that his last drink was earlier today, with alcohol level 469 in the emergency room. Reports drinking a pint of hard liquor daily for the past 20 years. Reports history of alcohol withdrawal seizures and delirium tremens. Denied experiencing chest discomfort, shortness of breath, nausea, vomiting, diarrhea, abdominal pain, cough, fever, chills. Laboratory evaluation was remarkable for platelet count of 92, AST 274, ALT 173. EKG reveals sinus rhythm at [address]/T-wave changes noted as reviewed by me. Review of systems: Pertinent positives and negatives as discussed in HPI, a complete review of systems was performed and all other systems are negative. Physical examination: General: non toxic, no distress, appears at stated age, normal weight Derm: no unusual rashes/lesions, warm Head: atraumatic, normocephalic, symmetric Eyes: EOMI, no lid lag, anicteric sclera, pupils equal round reactive to light ENT: Nose and ears atraumatic Neck: No cervical lymphadenopathy, trachea midline, supple Mouth: no lip lesion, mucus membranes moist Cardiovascular: S1S2 reg, no murmur, positive dorsalis pedis pulse bilateral, no edema Lungs: CTA bilateral, no rhonchi, no rales, no accessory muscle use Abdominal: soft, nontender to palpation, no guarding Ext: muscle strength 5 out of 5 in all 4 extremities grossly, no gross muscle atrophy, no contractures, Neuro: CN II-XI grossly intact, no gross focal neuro deficits Psych: Alert, oriented, appropriate affect Assessment/plan Alcohol intoxication -Thiamine, multivitamin -IV fluids -Aspiration, fall, seizure precautions -Cardiac monitoring -Monitor electrolytes daily Thrombocytopenia, likely due to ongoing alcohol abuse -Monitor for now Hypertension -Continue with home meds DVT prophylaxis -IPCDs The patient is admitted with an anticipated less than 2 midnight stay for evaluation of alcohol withdrawal. CODE STATUS: Full Code Discussed with: Patient Anticipated discharge date: in AM Anticipated discharge place: Home Past Medical History Past Medical History: No Reported History Additional Past Medical History / Comment(s): Sezuire about 3 years, seizure 10/03/21 History of Any Multi-Drug Resistant Organisms: None Reported Past Surgical History: No Surgical Hx Reported Past Anesthesia/Blood Transfusion Reactions: Unable to Obtain Past Psychological History: Depression, PTSD Smoking Status: Current every day smoker Past Alcohol Use History: Abuse, Daily, Heavy Past Drug Use History: Marijuana - Past Family History Father Family Medical History: COPD Medications and Allergies Home Medications Medication Instructions Recorded Confirmed Type Folic Acid 1 mg PO DAILY@1200 tab 11/14/21 01/12/22 Rx Pantoprazole [Protonix] 40 mg PO AC-BRKFST 30 Days #30 tab 11/14/21 01/12/22 Rx Thiamine [Vitamin B-1] 100 mg PO BID-W/MEALS tab 11/14/21 01/12/22 Rx Cholecalciferol [Vitamin D3 (25 50 mcg PO DAILY 01/12/22 01/12/22 History Mcg = 1000 Iu)] Lisinopril [Prinivil] 10 mg PO DIRECTED 01/12/22 01/12/22 History Multivitamins, Thera [Multivitamin 1 tab PO DAILY@1200 01/12/22 01/12/22 History (formulary)] cloNIDine HCL [Catapres] 0.1 mg PO DIRECTED 01/12/22 01/12/22 History Allergies Allergy/AdvReac Type Severity Reaction Status Date / Time Penicillins Allergy Swelling/Ra Verified 01/12/22 23:30 sh Physical Exam Vitals: Vital Signs Temp Pulse Resp BP Pulse Ox 01/12/22 23:30 72 16 110/63 99 01/12/22 17:59 98.0 F 98 20 102/71 100 Intake and Output 01/12/22 01/12/22 01/13/22 14:59 22:59 06:59 Other: Weight 63.503 kg Results CBC & Chem 7: 01/12/22 19:25 01/12/22 19:25 Labs: Abnormal Lab Results - Last 24 Hours (Table) 01/12/22 01/12/22 01/12/22 Range/Units 19:25 19:25 19:25 Plt Count 92 L (150-450) k/uL Glucose 116 H (74-99) mg/dL AST 274 H (17-59) U/L ALT 173 H (4-49) U/L Total Protein 9.4 H (6.3-8.2) g/dL Albumin 5.2 H (3.5-5.0) g/dL Urine Protein Trace H (Negative) U Marijuana (THC) Screen Detected H (NotDetected) Serum Alcohol 469 H* mg/dL
[2022-01-13] MEDS ORDERED: cloNIDine HCL 0.1 MG TAB PO SCH (00:15)
[2022-01-13] MEDS: SODIUM CHLORIDE 0.9% 1,000 ML IV SCH ×2 (02:25→07:58)
[2022-01-13] MEDS ORDERED: LORazepam 2 MG/ML INJ IV PRN ×3 (02:49)
[2022-01-13] MEDS ORDERED: PANTOPRAZOLE 40 MG TABLET PO SCH (07:30)
[2022-01-13] MEDS ORDERED: MULTIVITAMINS, THERA 1 EACH TAB PO SCH (09:00)
[2022-01-13] MEDS ORDERED: CHOLECALCIFEROL 25 MCG (1000 IU) TABLET PO SCH (09:00)
[2022-01-13] MEDS ORDERED: FOLIC ACID 1 MG TAB PO SCH (09:00)
[2022-01-13] MEDS ORDERED: FAMOTIDINE 20 MG TAB PO SCH (09:00)
[2022-01-13 10:00] LABS: Basophils # (A) 0.1 k/uL (0-0.2); Basophils % (A) 2 %; Eosinophils # (A) 0.2 k/uL (0-0.7); Eosinophils % (A) 5 %; HCT 38.2 % (39.0-53.0); Lymphocytes % (A) 26 %; MCH 31.5 pg (25.0-35.0); MCHC 32.2 g/dL (31.0-37.0); Monocytes # (A) 0.3 k/uL (0-1.0); Monocytes % (A) 7 %; Neutrophils # (A) 2.2 k/uL (1.3-7.7); Neutrophils % (A) 58 %; RBC 3.89 m/uL (4.30-5.90); RDW 13.8 % (11.5-15.5); WBC 3.8 k/uL (3.8-10.6)
[2022-01-13] MEDS ORDERED: lisinopriL 10 MG TAB PO SCH (10:00)
[2022-01-13 10:01] LABS: African American GFR (CKD) >90 (>60 ml/min/1.73 sqM); Anion Gap 7 mmol/L; Blood Urea Nitrogen 13 mg/dL (9-20); Calcium 7.7 mg/dL (8.4-10.2); Carbon Dioxide 28 mmol/L (22-30); Chloride 103 mmol/L (98-107); Glucose 90 mg/dL (74-99); Non-African American GFR(CKD) >90 (>60 ml/min/1.73 sqM); Sodium 138 mmol/L (137-145)
[2022-01-13 10:05] LABS: HGB 12.3 gm/dL (13.0-17.5)
[2022-01-13 10:06] LABS: Platelet Count 62 k/uL (150-450)
[2022-01-13 10:23] LABS: Magnesium 1.7 mg/dL (1.6-2.3); Potassium 4.3 mmol/L (3.5-5.1)
[2022-01-13 11:56] VITALS: TEMP 98.4
[2022-01-13 13:46] VITALS: BP 139/82; PULSE 78; RESP 14
--- NOTE | 2022-01-13 14:39 | P.DS ---
Providers Date of admission: 01/12/22 21:00 Attending physician: Doris Villalta MD Primary care physician: [facility] Course: The patient is a 46-year-old male with a PMH of EtOH abuse and hypertension who presents to the emergency room for alcohol intoxication. The patient reports that he is in fact here for withdrawal symptoms, although states that his last drink was earlier today, with alcohol level 469 in the emergency room. Reports drinking a pint of hard liquor daily for the past 20 years. Reports history of alcohol withdrawal seizures and delirium tremens. Denied experiencing chest discomfort, shortness of breath, nausea, vomiting, diarrhea, abdominal pain, cough, fever, chills. Laboratory evaluation was remarkable for platelet count of 92, AST 274, ALT 173. EKG reveals sinus rhythm at [address]/T-wave changes noted as reviewed by me. Patient was examined at bedside today not complaining of any worsening symptomatology. Patient states that he wants to detox and will follow up outpatient with his PCP. At this time he declined any resources or any help from our service. Patient is back to his baseline he has been educated regarding alcohol cessation. He denies any active chest pain, shortness of breath, auditory or visual hallucination. He is stable at the centimeter discharge. Patient Condition at Discharge: Serious Plan - Discharge Summary Discharge Rx Participant: No New Discharge Prescriptions: Continue Multivitamins, Thera [Multivitamin (formulary)] 1 tab PO DAILY Folic Acid 1 mg PO DAILY Pantoprazole [Protonix] 40 mg PO AC-BRKFST 30 Days #30 tab Thiamine [Vitamin B-1] 100 mg PO BID-W/MEALS tab Lisinopril [Prinivil] 10 mg PO DAILY Cholecalciferol [Vitamin D3 (25 Mcg = 1000 Iu)] 50 mcg PO DAILY Discharge Medication List Pantoprazole [Protonix] 40 mg PO AC-BRKFST 30 Days #30 tab 11/14/21 [Rx] Thiamine [Vitamin B-1] 100 mg PO BID-W/MEALS tab 11/14/21 [Rx] Cholecalciferol [Vitamin D3 (25 Mcg = 1000 Iu)] 50 mcg PO DAILY 01/12/22 [History] Lisinopril [Prinivil] 10 mg PO DAILY 01/12/22 [History] Multivitamins, Thera [Multivitamin (formulary)] 1 tab PO DAILY 01/12/22 [History] Folic Acid 1 mg PO DAILY 01/13/22 [History] Follow up Appointment(s)/Referral(s): [facility],Clinic [Primary Care Provider] - 1-2 days Discharge Disposition: HOME SELF-CARE
[2022-01-13] MEDS ORDERED: THIAMINE 100 MG TAB PO SCH (17:30)
== END 2022-01-13 15:18 | disposition home or self-care (01) ==
LOC: EC 16:52 → 5NMEDONC 21:00 → 6NMEDSUR 01-13 11:02
PROVIDERS: ADMIT Internal Medicine; ATTEND Internal Medicine
DX: F10.129 Alcohol abuse with intoxication, unspecified (principal); F32.A Depression, unspecified; F43.10 Post-traumatic stress disorder, unspecified; I10 Essential (primary) hypertension; D69.6 Thrombocytopenia, unspecified; R56.9 Unspecified convulsions; Y90.8 Blood alcohol level of 240 mg/100 ml or more; Z79.899 Other long term (current) drug therapy; Z88.0 Allergy status to penicillin; Z82.5 Family history of asthma and other chronic lower respiratory diseases
CPT/HCPCS: 96361 ×2; 96374; 96375; 99285; 36415; 93005; 80053; 80048; 83735 ×2; 85025 ×2; 81003; 80306; 80320; G0378 ×3; J2060; J2405

== ENCOUNTER → 2022-02-05 | Outpatient (CLI) | payer OTHER ==
--- NOTE | 2022-02-05 10:14 | US ---
EXAMINATION TYPE: US abdomen complete DATE OF EXAM: 02/05/2022 COMPARISON: NONE CLINICAL HISTORY: R94.5 ABN LIVER ENZYMES. EXAM MEASUREMENTS: Liver Length: 13.8 cm Gallbladder Wall: 0.2 cm CBD: 0.2 cm Spleen: 8.1 cm Right Kidney: 11.3 x 3.7 x 4.7 cm Left Kidney: 10.5 x 5.8 x 5.0 cm Pancreas: Tail obscured by overlying bowel gas Liver: Increased attenuation Gallbladder: wnl Evidence for sonographic Johnson's sign: no CBD: wnl Spleen: limited visualization Right Kidney: wnl Left Kidney: wnl Upper IVC: wnl Abd Aorta: wnl The intrahepatic portion of the IVC and proximal abdominal aorta are within normal limits. There is no evidence of cholelithiasis. Common bile duct is unremarkable. The visualized portions of the jacobs creas are homogenous. The spleen is unremarkable. Kidneys are symmetric and free of hydronephrosis. No renal lesions are seen. IMPRESSION: Mild hepatic steatosis suggested.
== END | disposition home or self-care (01) ==
LOC: RADUSWWP 09:27
DX: R94.5 Abnormal results of liver function studies (principal)
CPT/HCPCS: 76700

== ENCOUNTER 2022-07-24 21:33 | Inpatient (IN) | payer OTHER ==
[2022-07-24] MEDS ORDERED: SODIUM CHLORIDE 0.9% 1,000 ML IV STA ×2 (21:45)
[2022-07-24] MEDS ORDERED: SODIUM CHLORIDE 0.9% 500 ML 500 ML IV STA (21:45)
[2022-07-24] MEDS ORDERED: LORazepam 2 MG/ML INJ IV PRN ×2 (21:45)
[2022-07-24] MEDS ORDERED: THIAMINE 100 MG/ML 2 ML VIAL IM STA (21:45)
--- NOTE | 2022-07-24 22:16 | ED ---
Seizure HPI - General Chief Complaint: Seizure Stated Complaint: Seizure Time Seen by Provider: 07/24/22 21:35 Source: patient, RN notes reviewed, old records reviewed Mode of arrival: EMS Limitations: no limitations - History of Present Illness Initial Comments: This is a 46-year-old male to ER for evaluation. Patient presents for evaluation of seizure activity with history of alcohol abuse. Patient states she's been drinking his whole life. Patient presents with 3-4 seizures today prior to arrival no significant injury mild tongue laceration not bleeding currently. Patient did hit his head but currently awake alert able answer questions. No traumatic injuries noted. Patient states he stop drinking 3 days ago. This was due to just to desire to change his lifestyle MD Complaint: seizure, feel seizure coming on, shaking -: hour(s) Description of Episode: loss of consciousness, tonic-clonic movement -: second(s) Witnessed: yes - by bystander Trauma: No Seizure History: history of withdrawal seizures Place: home Possible Precipitating Event: alcohol withdrawal, stress Associated Symptoms: confusion, malaise, shortness of breath, weakness - Related Data Home Medications Medication Instructions Recorded Confirmed Cholecalciferol [Vitamin D3 (25 50 mcg PO DAILY 01/12/22 01/13/22 Mcg = 1000 Iu)] Multivitamins, Thera [Multivitamin 1 tab PO DAILY 01/12/22 01/13/22 (formulary)] Folic Acid 1 mg PO DAILY 01/13/22 01/13/22 Previous Rx's Medication Instructions Recorded Pantoprazole [Protonix] 40 mg PO AC-BRKFST 30 Days #30 tab 11/14/21 Thiamine [Vitamin B-1] 100 mg PO BID-W/MEALS tab 11/14/21 Allergies Allergy/AdvReac Type Severity Reaction Status Date / Time Penicillins Allergy Swelling/Ra Verified 07/24/22 22:01 Review of Systems ROS Statement: Those systems with pertinent positive or pertinent negative responses have been documented in the HPI. ROS Other: All systems not noted in ROS Statement are negative. Past Medical History Past Medical History: Seizure Disorder Additional Past Medical History / Comment(s): Sezuire about 3 years, seizure 10/03/21 History of Any Multi-Drug Resistant Organisms: None Reported Past Surgical History: No Surgical Hx Reported Past Anesthesia/Blood Transfusion Reactions: Unable to Obtain Past Psychological History: Depression, PTSD Smoking Status: Current every day smoker Past Alcohol Use History: Abuse, Daily, Heavy Past Drug Use History: Marijuana - Past Family History Father Family Medical History: COPD General Exam Limitations: altered mental status General appearance: alert, anxious, in distress Head exam: Present: atraumatic, normocephalic, normal inspection Eye exam: Present: normal appearance, PERRL, EOMI. Absent: scleral icterus, conjunctival injection, periorbital swelling ENT exam: Present: normal exam, mucous membranes moist Neck exam: Present: normal inspection. Absent: tenderness, meningismus, lymphadenopathy Respiratory exam: Present: normal lung sounds bilaterally. Absent: respiratory distress, wheezes, rales, rhonchi, stridor Cardiovascular Exam: Present: normal rhythm, tachycardia, normal heart sounds. Absent: systolic murmur, diastolic murmur, rubs, gallop, clicks GI/Abdominal exam: Present: soft, normal bowel sounds. Absent: distended, tenderness, guarding, rebound, rigid Extremities exam: Present: normal inspection, full ROM, normal capillary refill. Absent: tenderness, pedal edema, joint swelling, calf tenderness Back exam: Present: normal inspection Neurological exam: Present: alert, oriented X3, CN II-XII intact Psychiatric exam: Present: normal affect, normal mood Skin exam: Present: warm, dry, intact, normal color. Absent: rash Course Vital Signs 07/24/22 07/24/22 21:39 23:24 Temperature 98.5 F Pulse Rate 107 H 103 H Respiratory 24 15 Rate Blood Pressure 171/108 139/96 O2 Sat by Pulse 96 99 Oximetry - Reevaluation(s) Reevaluation #1: 07/24/22 22:41 medical record is reviewed Reevaluation #2: 07/24/22 22:41 patient symptoms improveing here in the ER Medical Decision Making - Medical Decision Making 46 male to the emergency department with multiple alcohol withdrawal seizures today. Patient states some hemodynamic instability tachycardia hypertension altered mental status and shaking, patient is given high doses of be nzodiazepines here in the ER and will be admitted for close monitoring and initiation of DVTs - Lab Data Result diagrams: 07/24/22 22:34 07/24/22 21:53 Lab Results 07/24/22 07/24/22 07/24/22 Range/Units 21:53 22:34 23:30 WBC 10.8 H (3.8-10.6) k/uL RBC 3.93 L (4.30-5.90) m/uL Hgb 12.5 L (13.0-17.5) gm/dL Hct 36.7 L (39.0-53.0) % MCV 93.4 (80.0-100.0) fL MCH 31.7 (25.0-35.0) pg MCHC 34.0 (31.0-37.0) g/dL RDW 13.6 (11.5-15.5) % Plt Count 94 L (150-450) k/uL MPV 9.2 Neutrophils % 89 % Lymphocytes % 4 % Monocytes % 5 % Eosinophils % 1 % Basophils % 1 % Neutrophils # 9.7 H (1.3-7.7) k/uL Lymphocytes # 0.4 L (1.0-4.8) k/uL Monocytes # 0.5 (0-1.0) k/uL Eosinophils # 0.1 (0-0.7) k/uL Basophils # 0.1 (0-0.2) k/uL Sodium 132 L (137-145) mmol/L Potassium 4.1 (3.5-5.1) mmol/L Chloride 99 (98-107) mmol/L Carbon Dioxide 21 L (22-30) mmol/L Anion Gap 12 mmol/L BUN 9 (9-20) mg/dL Creatinine 0.58 L (0.66-1.25) mg/dL Est GFR (CKD-EPI)AfAm >90 (>60 ml/min/1.73 sqM) Est GFR (CKD-EPI)NonAf >90 (>60 ml/min/1.73 sqM) Glucose 135 H (74-99) mg/dL Calcium 8.5 (8.4-10.2) mg/dL Phosphorus 2.3 L (2.5-4.5) mg/dL Magnesium 1.6 (1.6-2.3) mg/dL Total Bilirubin 1.3 (0.2-1.3) mg/dL AST 120 H (17-59) U/L ALT 50 H (4-49) U/L Alkaline Phosphatase 61 (38-126) U/L Total Protein 7.3 (6.3-8.2) g/dL Albumin 4.3 (3.5-5.0) g/dL Lipase 85 (23-300) U/L Urine Color Light Yellow Urine Appearance Clear (Clear) Urine pH 7.0 (5.0-8.0) Ur Specific [place] 1.007 (1.001-1.035) Urine Protein Negative (Negative) Urine Glucose (UA) Negative (Negative) Urine Ketones Negative (Negative) Urine Blood Negative (Negative) Urine Nitrite Negative (Negative) Urine Bilirubin Negative (Negative) Urine Urobilinogen <2.0 (<2.0) mg/dL Ur Leukocyte Esterase Negative (Negative) Urine Opiates Screen Not Detected (NotDetected) Ur Oxycodone Screen Not Detected (NotDetected) Urine Methadone Screen Not Detected (NotDetected) Ur Propoxyphene Screen Not Detected (NotDetected) Ur Barbiturates Screen Not Detected (NotDetected) U Tricyclic Antidepress Not Detected (NotDetected) Ur Phencyclidine Scrn Not Detected (NotDetected) Ur Amphetamines Screen Not Detected (NotDetected) U Methamphetamines Scrn Not Detected (NotDetected) U Benzodiazepines Scrn Not Detected (NotDetected) Urine Cocaine Screen Not Detected (NotDetected) U Marijuana (THC) Screen Detected H (NotDetected) Serum Alcohol <10 mg/dL - EKG Data -: EKG Interpreted by Me (EKG is sinus 104 cardiac, MS 178 QRS 84 QTc 4:15) Critical Care Time Critical Care Time: Yes Total Critical Care Time: 31 Disposition Clinical Impression: Alcohol withdrawal, Generalized seizure, Alcohol withdrawal seizure Disposition: ADMITTED IP TO THIS [facility] Condition: Serious Instructions (If sedation given, give patient instructions): Seizure/Epilepsy Discharge Instructions & Follow-Up Is patient prescribed a controlled substance at d/c from ED?: No Referrals: [facility],Clinic [Primary Care Provider] - 1-2 days Time of Disposition: 00:15
[2022-07-24] MEDS: LORazepam 2 MG/ML INJ IV PRN ×2 (22:21→23:01)
[2022-07-24 22:23] LABS: African American GFR (CKD) >90 (>60 ml/min/1.73 sqM); Alcohol <10 mg/dL; Anion Gap 12 mmol/L; Blood Urea Nitrogen 9 mg/dL (9-20); Calcium 8.5 mg/dL (8.4-10.2); Carbon Dioxide 21 mmol/L (22-30); Chloride 99 mmol/L (98-107); Glucose 135 mg/dL (74-99); Lipase 85 U/L (23-300); Non-African American GFR(CKD) >90 (>60 ml/min/1.73 sqM); Sodium 132 mmol/L (137-145); Total Bilirubin 1.3 mg/dL (0.2-1.3)
[2022-07-24 22:36] LABS: ALT 50 U/L (4-49); AST 120 U/L (17-59); Alkaline Phosphatase 61 U/L (38-126); Potassium 4.1 mmol/L (3.5-5.1); Total Protein 7.3 g/dL (6.3-8.2)
[2022-07-24 22:37] LABS: Albumin 4.3 g/dL (3.5-5.0); Magnesium 1.6 mg/dL (1.6-2.3); Phosphorus 2.3 mg/dL (2.5-4.5)
[2022-07-24 22:58] LABS: Basophils # (A) 0.1 k/uL (0-0.2); Basophils % (A) 1 %; Eosinophils # (A) 0.1 k/uL (0-0.7); Eosinophils % (A) 1 %; HCT 36.7 % (39.0-53.0); HGB 12.5 gm/dL (13.0-17.5); Lymphocytes # (A) 0.4 k/uL (1.0-4.8); Lymphocytes % (A) 4 %; MCH 31.7 pg (25.0-35.0); MCV 93.4 fL (80.0-100.0); Mean Platelet Volume 9.2; Monocytes # (A) 0.5 k/uL (0-1.0); Monocytes % (A) 5 %; Neutrophils # (A) 9.7 k/uL (1.3-7.7); Neutrophils % (A) 89 %; RBC 3.93 m/uL (4.30-5.90); RDW 13.6 % (11.5-15.5); WBC 10.8 k/uL (3.8-10.6)
[2022-07-24 22:59] LABS: Platelet Count 94 k/uL (150-450)
[2022-07-24 23:37] LABS: Appearance,Urine Clear (Clear); Bilirubin,Urine Negative (Negative); Blood,Urine Negative (Negative); Color,Urine Light Yellow; Glucose,Urine (UA) Negative (Negative); Ketones,Urine Negative (Negative); Leukocyte Esterase,Urine Negative (Negative); Nitrite,Urine Negative (Negative); Protein,Urine Negative (Negative); Specific Gravity,Urine 1.007 (1.001-1.035); Urobilinogen,Urine <2.0 mg/dL (<2.0)
[2022-07-25 00:12] LABS: Amphetamine Screen,Urine Not Detected (NotDetected); Barbiturate Screen,Urine Not Detected (NotDetected); Benzodiazepines Screen,Urine Not Detected (NotDetected); Cocaine Screen,Urine Not Detected (NotDetected); Methadone Screen, Urine Not Detected (NotDetected); Opiate Screen,Urine Not Detected (NotDetected); Oxycodone Screen, Urine Not Detected (NotDetected); Phencyclidine Screen,Urine Not Detected (NotDetected); Tricyclic Antidepressant,Urine Not Detected (NotDetected); Urn Cannabinoid Scrn Detected (NotDetected)
[2022-07-25] MEDS ORDERED: ONDANSETRON 4 MG/2 ML VIAL IVP PRN (00:14)
[2022-07-25] MEDS ORDERED: MORPHINE SULFATE 4 MG/ML SYRINGE IV PRN (00:14)
[2022-07-25] MEDS ORDERED: NALOXONE 0.4 MG/ML 1 ML VIAL IV PRN (00:14)
[2022-07-25] MEDS: SODIUM CHLORIDE 0.9% 1,000 ML IV SCH ×3 (02:30→16:28)
--- NOTE | 2022-07-25 04:02 | P.HPIM ---
History of Present Illness H&P Date: 07/25/22 Chief Complaint: skin rash and papules 46 year old male with mild persistent asthma coming in today for evaluation of diffuse rash with papules. this has started 2- 3 days ago and has been getting worse, he got evaluated by an urgent care on Wednesday for which he was given some antibiotics, however he noticed that his rash was getting worse, the papules are involving mainly his face, head , scalp, upper chest and back and bilateral arms. denies any sick contact, denies any immunodeficient disease , denies any recent travel or hospital stay , denies any similar symptoms in the past. he denies any URI symptoms or diffuse body aches. the papules are itchy and some painful. he reports being unvaccinated against chicken pox. he has some around his mouth and possibly over his tongue. he is concerned regarding chicken pox or monkey pox blood work reviewed Review of Systems Pertinent positives as noted in HPI. All other systems were reviewed and are negative Past Medical History Past Medical History: Seizure Disorder Additional Past Medical History / Comment(s): withdrawal related seizures for about 3 years, seizure 10/03/21 and 07/24/22 History of Any Multi-Drug Resistant Organisms: None Reported Past Surgical History: No Surgical Hx Reported Past Anesthesia/Blood Transfusion Reactions: Unable to Obtain Past Psychological History: Depression, PTSD Smoking Status: Current every day smoker Past Alcohol Use History: Abuse, Daily, Heavy Additional Past Alcohol Use History / Comment(s): Starting smoking 22 years old. Smoke a pack a day Past Drug Use History: Marijuana - Past Family History Father Family Medical History: COPD Medications and Allergies Home Medications Medication Instructions Recorded Confirmed Type Pantoprazole [Protonix] 40 mg PO AC-BRKFST 30 Days #30 tab 11/14/21 01/13/22 Rx Thiamine [Vitamin B-1] 100 mg PO BID-W/MEALS tab 11/14/21 01/13/22 Rx Cholecalciferol [Vitamin D3 (25 50 mcg PO DAILY 01/12/22 01/13/22 History Mcg = 1000 Iu)] Multivitamins, Thera [Multivitamin 1 tab PO DAILY 01/12/22 01/13/22 History (formulary)] Folic Acid 1 mg PO DAILY 01/13/22 01/13/22 History Allergies Allergy/AdvReac Type Severity Reaction Status Date / Time Penicillins Allergy Swelling/Ra Verified 07/24/22 22:01 Physical Exam Vitals: Vital Signs Temp Pulse Pulse Resp BP BP Pulse Ox 07/25/22 03:37 98.1 F 107 H 16 126/80 100 07/25/22 01:35 98.4 F 101 H 20 168/92 99 07/25/22 01:04 98 15 126/69 100 07/24/22 23:24 103 H 15 139/96 99 07/24/22 21:39 98.5 F 107 H 24 171/108 96 Intake and Output 07/24/22 07/24/22 07/25/22 14:59 22:59 06:59 Other: Voiding Method Toilet Urinal Weight 65.771 kg 65.771 kg Constitutional: No acute distress, conversant, pleasant Eyes: Anicteric sclerae, moist conjunctiva, Pupils equal round reactive to light ENMT: NC/AT Oropharynx clear, no erythema, or exudates Neck: Supple, no masses, or JVD No carotid bruits No thyromegaly Lungs: Clear to auscultation Clear to percussion Normal respiratory effort, no accessory muscle use Cardiovascular: Heart regular in rate and rhythm, No murmurs, gallops, or rubs No peripheral edema Abdominal: Soft Nontender, no guarding, rebound or rigidity Abdomen moving with respiration Normoactive bowel sounds No hepatomegaly, No splenomegaly No palpable mass No abdominal wall hernia noted Skin: diffuse papular rash , with vesicle and papules with scabs. Extremities: No digital cyanosis No clubbing Pedal pulses intact and symmetrical Radial pulses intact and symmetrical No calf tenderness Psychiatric: Alert and oriented to person, place and time Appropriate affect fair judgement Neuro Muscles Strength 5/5 in all 4 extremities Sensation to light touch grossly present throughout Cranial nerves II-XII grossly intact Lymphatics: no palpable cervical or supraclavicular lymph nodes Results CBC & Chem 7: 07/24/22 22:34 07/24/22 21:53 Labs: Abnormal Lab Results - Last 24 Hours (Table) 07/24/22 07/24/22 07/24/22 Range/Units 21:53 22:34 23:30 WBC 10.8 H (3.8-10.6) k/uL RBC 3.93 L (4.30-5.90) m/uL Hgb 12.5 L (13.0-17.5) gm/dL Hct 36.7 L (39.0-53.0) % Plt Count 94 L (150-450) k/uL Neutrophils # 9.7 H (1.3-7.7) k/uL Lymphocytes # 0.4 L (1.0-4.8) k/uL Sodium 132 L (137-145) mmol/L Carbon Dioxide 21 L (22-30) mmol/L Creatinine 0.58 L (0.66-1.25) mg/dL Glucose 135 H (74-99) mg/dL Phosphorus 2.3 L (2.5-4.5) mg/dL AST 120 H (17-59) U/L ALT 50 H (4-49) U/L U Marijuana (THC) Screen Detected H (NotDetected) Thrombosis Risk Factor Assmnt - Choose All That Apply Each Factor Represents 1 point: Age 41-60 years Other Risk Factors: No Other congenital or acquired thrombophilia - If yes, enter type in comment: No Thrombosis Risk Factor Assessment Total Risk Factor Score: 1 Thrombosis Risk Factor Assessment Level: Low Risk Assessment and Plan Assessment: diffuse papular rash with vesicles ID consult rule out chicken pox vs monkey pox symptomatic relief of pain or itching contact precautions mild persistent asthma duoneb prn \ full code DVT PPX mechanical
--- NOTE | 2022-07-25 04:15 | P.HPIM ---
History of Present Illness H&P Date: 07/25/22 Chief Complaint: seizures 46 year old male with alcohol dependance patient coming in for evalution due to multiple episodes of seizure, witnessed by family , resulted in falling , injury to the nose and biting tongue. patient is awake alert, currently denies any headache, vision changes , or auditory hallucinations. he admits to drinking heavily on daily basis , and today he sustained and fall for which his brought him in for evaluation he denies any abd , chest , pain or headache, denies any trouble breathing, GI bleeding or chest pain he denies tobacco smoking, but admits to heavy alcohol consumption Review of Systems Pertinent positives as noted in HPI. All other systems were reviewed and are negative Past Medical History Past Medical History: Seizure Disorder Additional Past Medical History / Comment(s): withdrawal related seizures for about 3 years, seizure 10/03/21 and 07/24/22 History of Any Multi-Drug Resistant Organisms: None Reported Past Surgical History: No Surgical Hx Reported Past Anesthesia/Blood Transfusion Reactions: Unable to Obtain Past Psychological History: Depression, PTSD Smoking Status: Current every day smoker Past Alcohol Use History: Abuse, Daily, Heavy Additional Past Alcohol Use History / Comment(s): Starting smoking 22 years old. Smoke a pack a day Past Drug Use History: Marijuana - Past Family History Father Family Medical History: COPD Medications and Allergies Home Medications Medication Instructions Recorded Confirmed Type Pantoprazole [Protonix] 40 mg PO AC-BRKFST 30 Days #30 tab 11/14/21 01/13/22 Rx Thiamine [Vitamin B-1] 100 mg PO BID-W/MEALS tab 11/14/21 01/13/22 Rx Cholecalciferol [Vitamin D3 (25 50 mcg PO DAILY 01/12/22 01/13/22 History Mcg = 1000 Iu)] Multivitamins, Thera [Multivitamin 1 tab PO DAILY 01/12/22 01/13/22 History (formulary)] Folic Acid 1 mg PO DAILY 01/13/22 01/13/22 History Allergies Allergy/AdvReac Type Severity Reaction Status Date / Time Penicillins Allergy Swelling/Ra Verified 07/24/22 22:01 Physical Exam Vitals: Vital Signs Temp Pulse Pulse Resp BP BP Pulse Ox 07/25/22 03:37 98.1 F 107 H 16 126/80 100 07/25/22 01:35 98.4 F 101 H 20 168/92 99 07/25/22 01:04 98 15 126/69 100 07/24/22 23:24 103 H 15 139/96 99 07/24/22 21:39 98.5 F 107 H 24 171/108 96 Intake and Output 07/24/22 07/24/22 07/25/22 14:59 22:59 06:59 Other: Voiding Method Toilet Urinal Weight 65.771 kg 65.771 kg Constitutional: No acute distress, conversant, pleasant Eyes: Anicteric sclerae, moist conjunctiva, Pupils equal round reactive to light ENMT: NC , NASAL BRIGDE WITH echymosis and bruising Oropharynx clear, injury to the tongue which appears slightly swollen Neck: Supple, no masses, or JVD No carotid bruits No thyromegaly Lungs: Clear to auscultation Clear to percussion Normal respiratory effort, no accessory muscle use Cardiovascular: Heart regular in rate and rhythm, No murmurs, gallops, or rubs No peripheral edema Abdominal: Soft Nontender, no guarding, rebound or rigidity Abdomen moving with respiration Normoactive bowel sounds No hepatomegaly, No splenomegaly No palpable mass No abdominal wall hernia noted Skin: skin injury over the left upper lip, Extremities: No digital cyanosis No clubbing Pedal pulses intact and symmetrical Radial pulses intact and symmetrical No calf tenderness Psychiatric: Alert and oriented to person, place Neuro Muscles Strength 5/5 in all 4 extremities Sensation to light touch grossly present throughout Cranial nerves II-XII grossly intact Lymphatics: no palpable cervical or supraclavicular lymph nodes Results CBC & Chem 7: 07/24/22 22:34 07/24/22 21:53 Labs: Abnormal Lab Results - Last 24 Hours (Table) 07/24/22 07/24/22 07/24/22 Range/Units 21:53 22:34 23:30 WBC 10.8 H (3.8-10.6) k/uL RBC 3.93 L (4.30-5.90) m/uL Hgb 12.5 L (13.0-17.5) gm/dL Hct 36.7 L (39.0-53.0) % Plt Count 94 L (150-450) k/uL Neutrophils # 9.7 H (1.3-7.7) k/uL Lymphocytes # 0.4 L (1.0-4.8) k/uL Sodium 132 L (137-145) mmol/L Carbon Dioxide 21 L (22-30) mmol/L Creatinine 0.58 L (0.66-1.25) mg/dL Glucose 135 H (74-99) mg/dL Phosphorus 2.3 L (2.5-4.5) mg/dL AST 120 H (17-59) U/L ALT 50 H (4-49) U/L U Marijuana (THC) Screen Detected H (NotDetected) Thrombosis Risk Factor Assmnt - Choose All That Apply Each Factor Represents 1 point: Age 41-60 years Other Risk Factors: No Other congenital or acquired thrombophilia - If yes, enter type in comment: No Thrombosis Risk Factor Assessment Total Risk Factor Score: 1 Thrombosis Risk Factor Assessment Level: Low Risk Assessment and Plan Assessment: alcohol withdrawal seizure benzo per CIWA alcohol withdrawal seizure precautions fall precautions neuro consult IVF hydration with normal saline monitor airways engine monitor full code DVT PPX mechanical
[2022-07-25] MEDS ORDERED: THIAMINE 100 MG TAB PO SCH (09:00)
[2022-07-25] MEDS ORDERED: MULTIVITAMINS, THERA 1 EACH TAB PO SCH (11:15)
--- NOTE | 2022-07-25 12:28 | P.CNNES ---
History of Present Illness Consult date: 07/25/22 Requesting physician: Vanna Parra Reason for Consult: ETOH seizure History of Present Illness: This is a 46-year-old gentleman with history of alcohol withdrawal seizures, significant alcohol use who presented emergency department because of seizures. Patient stated that his last drink was about close to 4 days ago and he stated that yesterday he had about 3 seizures. These seizures were witnessed by family and he stated that the he was told he has been generalized taken with loss of consciousness and denies any urinary or bowel incontinence. He does not recall these episodes. He says he drinks at least a pint a day. Again his last drink was about 4 days ago. He denies stopping for a long period of time and then having a seizure he said all his seizures happen whenever he stops drinking and it's within a couple days. Some of the workup during his hospital visit consisted of: NCV is 93.4. Serum glucose is 135, sodium is 132, AST is 120 ALT is 50, calcium is 8.5. Phosphorus 2.3 Urine drug screen is positive for marijuana the rest is not detected in the serum alcohol was less than 10 Review of Systems Review of system: The 12 point system was reviewed and apparent positive and negative per HPI. Past Medical History Past Medical History: Seizure Disorder Additional Past Medical History / Comment(s): withdrawal related seizures for about 3 years, seizure 10/03/21 and 07/24/22 History of Any Multi-Drug Resistant Organisms: None Reported Past Surgical History: No Surgical Hx Reported Past Anesthesia/Blood Transfusion Reactions: Unable to Obtain Past Psychological History: Depression, PTSD Smoking Status: Current every day smoker Past Alcohol Use History: Abuse, Daily, Heavy Additional Past Alcohol Use History / Comment(s): Starting smoking 22 years old. Smoke a pack a day Past Drug Use History: Marijuana - Past Family History Father Family Medical History: COPD Medications and Allergies Home Medications Medication Instructions Recorded Confirmed Type Pantoprazole [Protonix] 40 mg PO AC-BRKFST 30 Days #30 tab 11/14/21 01/13/22 Rx Thiamine [Vitamin B-1] 100 mg PO BID-W/MEALS tab 11/14/21 01/13/22 Rx Cholecalciferol [Vitamin D3 (25 50 mcg PO DAILY 01/12/22 01/13/22 History Mcg = 1000 Iu)] Multivitamins, Thera [Multivitamin 1 tab PO DAILY 01/12/22 01/13/22 History (formulary)] Folic Acid 1 mg PO DAILY 01/13/22 01/13/22 History Allergies Allergy/AdvReac Type Severity Reaction Status Date / Time Penicillins Allergy Swelling/Ra Verified 07/24/22 22:01 Physical Examination - Vital Signs Vital Signs: Vital Signs Temp Pulse Pulse Resp BP BP Pulse Ox 07/25/22 08:00 98.2 F 101 H 14 135/87 99 07/25/22 03:37 98.1 F 107 H 16 126/80 100 07/25/22 01:35 98.4 F 101 H 20 168/92 99 07/25/22 01:04 98 15 126/69 100 07/24/22 23:24 103 H 15 139/96 99 07/24/22 21:39 98.5 F 107 H 24 171/108 96 Intake and Output 07/24/22 07/25/22 07/25/22 22:59 06:59 14:59 Intake Total 337.5 Output Total 1125 425 Balance -787.5 -425 Intake: Intake, IV Titration 337.5 Amount Sodium Chloride 0.9% 1, 337.5 000 ml @ 130 mls/hr IV . [id number] [facility] Rx#:[id number] Oral 0 Output: Urine 1125 425 Other: Voiding Method Toilet Toilet Urinal Urinal # Voids 2 # Bowel Movements 1 Weight 65.771 kg 65.771 kg GENERAL: The patient is lying in bed and is not in acute distress. HENT: Bruise over the midnose and left upper cheek (from fall) CHEST: The heart rate is regular rate rhythm. No murmurs to auscultation. LUNG: Clear to auscultation bilaterally no wheezing noted throughout. Not labored breathing. ABDOMEN/GI: Bowel sounds present in all 4 quadrants. No tenderness to palpation throughout. NEUROLOGICAL: Higher mental function: The patient is awake, alert, oriented to self, place and time. Patient is following commands. No aphasia and no neglect. Cranial nerves: The pupils are round, equal and reactive to light and accommodation. Visual calvert are full to confrontation throughout. Extraocular movement is intact no nystagmus is noted. Facial sensation is normal to touch throughout. The facial strength is normal throughout. Hearing is normal bilaterally to hand rub. Tongue is midline and moved [id number] without any difficulty. No dysarthria is noted. Shoulder shrug is normal bilaterally. Motor: The strength is 5 over 5 throughout. Normal tone and bulk. Cerebellum: Normal finger to nose bilaterally. Sensation: Sensation is normal to touch throughout. Reflexes (right/left): 2+ throughout. Plantars are downgoing bilaterally. Results - Laboratory Findings CBC and BMP: 07/24/22 22:34 07/24/22 21:53 Abnormal Lab Findings: Abnormal Labs 07/24/22 07/24/22 07/24/22 21:53 22:34 23:30 WBC 10.8 H RBC 3.93 L Hgb 12.5 L Hct 36.7 L Plt Count 94 L Neutrophils # 9.7 H Lymphocytes # 0.4 L Sodium 132 L Carbon Dioxide 21 L Creatinine 0.58 L Glucose 135 H Phosphorus 2.3 L AST 120 H ALT 50 H U Marijuana (THC) Screen Detected H Assessment and Plan Assessment: Alcohol withdrawal seizures (had multiple seizure-like activity witnessed by family. Last drink was 3 days prior to his seizures). Alcohol use and last drink was about 4 days ago (stated drinks at least a pint a day) AST more than ALT due to alcohol use History of alcohol withdrawal seizures Marijuana use Plan: I ordered CT of the brain since the patient had the head trauma and bruises on the face to rule out any brain as result. Not need for antiepileptic drug since this seems like alcohol withdrawal seizures. Agree with thiamine 100 mg daily. If patient continues to have seizures then would recommend to pursue with the an EEG (which will be done this Wednesday). If not given be done as an outpatient if no further seizures to rule out any underlying epileptic seizures. Patient was counseled on alcohol cessation. He was notified to avoid alcohol as much as possible and if he has seizure after 3 weeks or longer or stopping alcohol then needs further investigations to rule out any underlying epileptic seizures. Will defer CIWA protocol to primary team. Per [place] DMV because of the seizure, patient to avoid driving for 6 month until Z seizure-free, avoid heights, avoid using heavy machinery or swim unassisted. The plan is discussed with patient and primary team. Thank you for the consultation. Time with Patient: Greater than 30
--- NOTE | 2022-07-25 13:20 | CT ---
EXAMINATION TYPE: CT brain wo con DATE OF EXAM: 07/25/2022 COMPARISON: 06/17/2017 HISTORY: 46-year-old male Seizure and pain after head trauma TECHNIQUE: Examination was done in axial plane without intravenous contrast. Coronal and sagittal r econstructions performed. CT DLP: 1142.4 mGycm Automated exposure control for dose reduction was used. FINDINGS: Left posterior parietal scalp contusion. No underlying calvarial fracture. There is no evidence of acute intracranial hemorrhage, acute ischemic changes, mass, mass-effect, or extra-axial fluid collection. There is no effacement of cerebral sulci or basal subarachnoid cister ns. There is no hydrocephalus. There is no midline shift. Berger-white matter distinction is preserv ed. Sharp rightward nasal septal deviation. Mild mucosal thickening ethmoid air cells. Trace mucosal thic kening right maxillary sinus. Mastoid air cells are well pneumatized. Orbits and globes are intact. IMPRESSION: Left posterior parietal scalp contusion. No acute intracranial abnormality seen.
[2022-07-25 16:07] VITALS: RESP 16
[2022-07-26] MEDS: SODIUM CHLORIDE 0.9% 1,000 ML IV SCH (01:57)
[2022-07-26 03:36] VITALS: BP 140/90; PULSE 71; TEMP 98.1
[2022-07-26 05:57] LABS: Basophils % (A) 1 %; Eosinophils # (A) 0.7 k/uL (0-0.7); Eosinophils % (A) 9 %; HCT 40.1 % (39.0-53.0); HGB 13.5 gm/dL (13.0-17.5); Lymphocytes # (A) 0.9 k/uL (1.0-4.8); Lymphocytes % (A) 12 %; MCH 32.3 pg (25.0-35.0); MCHC 33.7 g/dL (31.0-37.0); MCV 95.9 fL (80.0-100.0); Mean Platelet Volume 10.1; Monocytes # (A) 0.4 k/uL (0-1.0); Monocytes % (A) 6 %; Neutrophils # (A) 5.3 k/uL (1.3-7.7); Neutrophils % (A) 71 %; RBC 4.18 m/uL (4.30-5.90); RDW 13.4 % (11.5-15.5); WBC 7.5 k/uL (3.8-10.6)
[2022-07-26 06:03] LABS: Platelet Count 87 k/uL (150-450)
[2022-07-26 06:09] LABS: ALT 39 U/L (4-49); AST 91 U/L (17-59); African American GFR (CKD) >90 (>60 ml/min/1.73 sqM); Albumin 3.9 g/dL (3.5-5.0); Alkaline Phosphatase 69 U/L (38-126); Anion Gap 5 mmol/L; Blood Urea Nitrogen 2 mg/dL (9-20); Calcium 8.8 mg/dL (8.4-10.2); Carbon Dioxide 30 mmol/L (22-30); Chloride 102 mmol/L (98-107); Glucose 106 mg/dL (74-99); Magnesium 1.8 mg/dL (1.6-2.3); Non-African American GFR(CKD) >90 (>60 ml/min/1.73 sqM); Phosphorus 3.3 mg/dL (2.5-4.5); Potassium 3.5 mmol/L (3.5-5.1); Sodium 137 mmol/L (137-145); Total Bilirubin 1.2 mg/dL (0.2-1.3); Total Protein 6.9 g/dL (6.3-8.2)
--- NOTE | 2022-07-26 10:20 | P.DS ---
Providers Date of admission: 07/25/22 00:14 Expected date of discharge: 07/26/22 Attending physician: Doris Villalta MD Consults: 07/25/22 08:14 Consult Physician Routine Consulting Provider: Emery Lobato Consult Reason/Comments: ETOH seziure Do you want consulting provider notified?: Yes Primary care physician: [facility] Hospital Course: 46 year old male with alcohol dependance presented for multiple episodes of seizure. He underwent Brain CT and evaluation by neuro; brain CT showed posterior scalp contusion, but no intracranial pathology. Neurology felt seizures were related to KULDIP. Pt was treated for KULDIP, however, this morning, left against medical advice, prior to my evaluation. Patient Condition at Discharge: Undetermined Plan - Discharge Summary Discharge Rx Participant: No New Discharge Prescriptions: No Action Multivitamins, Thera [Multivitamin (formulary)] 1 tab PO DAILY Folic Acid 1 mg PO DAILY buPROPion SR [Wellbutrin SR] 150 mg PO BID Thiamine [Vitamin B-1] 100 mg PO BID-W/MEALS tab Cholecalciferol [Vitamin D3 (25 Mcg = 1000 Iu)] 50 mcg PO DAILY Fluoride (Sodium) [Sodium Fluoride] 1 applic DENTAL HS Discharge Medication List Thiamine [Vitamin B-1] 100 mg PO BID-W/MEALS tab 11/14/21 [Rx] Cholecalciferol [Vitamin D3 (25 Mcg = 1000 Iu)] 50 mcg PO DAILY 01/12/22 [History] Multivitamins, Thera [Multivitamin (formulary)] 1 tab PO DAILY 01/12/22 [History] Folic Acid 1 mg PO DAILY 01/13/22 [History] Fluoride (Sodium) [Sodium Fluoride] 1 applic DENTAL HS 07/25/22 [History] buPROPion SR [Wellbutrin SR] 150 mg PO BID 07/25/22 [History] Follow up Appointment(s)/Referral(s): [facility] [Primary Care Provider] - 1-2 days Patient Instructions/Handouts: Seizure/Epilepsy Discharge Instructions & Follow-Up Discharge/Stand Alone Forms: AA Meetings [facility] [facility], Community Resources, Outpatient Counseling, Inp Substance Abuse Facilities Discharge Disposition: Left Against Medical Advice
== END 2022-07-26 09:13 | disposition left against medical advice (07) | DRG 101 ==
LOC: EC 21:33 → 3SCARD 07-25 00:14
PROVIDERS: ADMIT Internal Medicine; ATTEND Internal Medicine
PROC: HZ2ZZZZ Detoxification Services for Substance Abuse Treatment (ICD-10-PCS; principal; 2022-07-25)
DX: R56.9 Unspecified convulsions (principal); F10.239 Alcohol dependence with withdrawal, unspecified; S00.03XA Contusion of scalp, initial encounter; Z71.6 Tobacco abuse counseling; R00.0 Tachycardia, unspecified; Z53.29 Procedure and treatment not carried out because of patient's decision for other reasons; R21 Rash and other nonspecific skin eruption; S09.92XA Unspecified injury of nose, initial encounter; J45.30 Mild persistent asthma, uncomplicated; S01.552A Open bite of oral cavity, initial encounter; Z71.41 Alcohol abuse counseling and surveillance of alcoholic; F17.210 Nicotine dependence, cigarettes, uncomplicated; F12.90 Cannabis use, unspecified, uncomplicated; F32.A Depression, unspecified; F43.10 Post-traumatic stress disorder, unspecified; I10 Essential (primary) hypertension; Z82.5 Family history of asthma and other chronic lower respiratory diseases; W19.XXXA Unspecified fall, initial encounter
CPT/HCPCS: 36415; 70450; 80053; 80306; 80320; 81003; 83690; 83735; 84100; 85025; 96361; 96372; 96374; 96375; 96376; 99285

== ENCOUNTER 2023-01-24 16:09 | Inpatient (IN) | payer OTHER ==
[2023-01-24] MEDS ORDERED: LORazepam 2 MG/ML INJ IV PRN ×2 (16:50)
[2023-01-24] MEDS ORDERED: THIAMINE 100 MG/ML 2 ML VIAL IM STA (16:50)
[2023-01-24] MEDS: LORazepam 2 MG/ML INJ IV PRN ×2 (17:07→22:31)
--- NOTE | 2023-01-24 17:11 | ED ---
Fall HPI - General Chief Complaint: Fall Stated Complaint: fall, poss alcohol withdrawls,history of seizures Time Seen by Provider: 01/24/23 16:40 Source: patient Mode of arrival: ambulatory - History of Present Illness Initial Comments: 47-year-old male presenting for evaluation post fall and for alcohol withdrawal. Patient states that he fell down 3 stairs 2 days ago and injured his left foot and right elbow, denies any head injury or loss of consciousness at that time. Patient states that he also noted blood on his pillow yesterday from a head injury but cannot recall when this occurred. Patient has mild tremor at this time. States that for the last week he has been drinking a fifth of alcohol per day, today he has had 1 pint. States that he has history of alcohol withdrawal seizures. He denies any headache, neck pain, numbness, tingling, weakness, vision or hearing changes, chest pain, difficulty breathing, abdominal pain. - Related Data Home Medications Medication Instructions Recorded Confirmed Cholecalciferol [Vitamin D3 (25 50 mcg PO DAILY 01/12/22 01/24/23 Mcg = 1000 Iu)] Multivitamins, Thera [Multivitamin 1 tab PO DAILY 01/12/22 01/24/23 (formulary)] Folic Acid 1 mg PO DAILY 01/13/22 01/24/23 buPROPion SR [Wellbutrin SR] 150 mg PO DAILY 01/24/23 01/24/23 Previous Rx's Medication Instructions Recorded Thiamine [Vitamin B-1] 100 mg PO BID-W/MEALS tab 11/14/21 Allergies Allergy/AdvReac Type Severity Reaction Status Date / Time Penicillins Allergy Swelling/Ra Verified 01/24/23 17:54 Review of Systems ROS Statement: Those systems with pertinent positive or pertinent negative responses have been documented in the HPI. ROS Other: All systems not noted in ROS Statement are negative. Past Medical History Past Medical History: Hypertension, Seizure Disorder Additional Past Medical History / Comment(s): withdrawal related seizures for about 3 years, seizure 10/03/21 and 07/24/22 History of Any Multi-Drug Resistant Organisms: None Reported Past Surgical History: Orthopedic Surgery Past Anesthesia/Blood Transfusion Reactions: Unable to Obtain Past Psychological History: Depression, PTSD Smoking Status: Current every day smoker Past Alcohol Use History: Abuse, Daily, Heavy Past Drug Use History: Marijuana - Past Family History Father Family Medical History: COPD General Exam Limitations: no limitations General appearance: alert, in no apparent distress Head exam: Present: atraumatic, normocephalic, normal inspection Eye exam: Present: normal appearance, EOMI. Absent: scleral icterus, periorbital swelling Neck exam: Present: normal inspection, full ROM Respiratory exam: Present: normal lung sounds bilaterally. Absent: respiratory distress, wheezes, rales, rhonchi, stridor Cardiovascular Exam: Present: regular rate, normal rhythm, normal heart sounds. Absent: systolic murmur, diastolic murmur, rubs, gallop, clicks Left Foot/Toe exam: Present: full ROM, tenderness, swelling Neurological exam: Present: alert, oriented X3, CN II-XII intact Expanded Speech: Present: fluid speech Eye Response: (4) open spontaneously Motor Response: (6) obeys commands Verbal Response: (5) oriented [place] Total: 15 Psychiatric exam: Present: normal affect, normal mood Skin exam: Present: warm, dry, intact, normal color. Absent: rash Course Vital Signs 01/24/23 01/24/23 01/24/23 16:20 18:58 20:45 Temperature 98.2 F Pulse Rate 92 88 110 H Respiratory 18 20 16 Rate Blood Pressure 143/83 149/87 140/87 O2 Sat by Pulse 98 96 98 Oximetry Medical Decision Making - Medical Decision Making Was pt. sent in by a medical professional or institution ([facility], [employer], urgent care, hospital, or prison...) When possible be specific @ -No Did you speak to anyone other than the patient for history (EMS, parent, family, police, friend...)? What history was obtained from this source @ -No Did you review nursing and triage notes (agree or disagree)? Why? @ -I reviewed and agree with nursing and triage notes Were old charts reviewed (outside hosp., previous admission, EMS record, old EKG, old radiological studies, urgent care reports/EKG's, prison records)? Report findings @ -No old charts were reviewed Differential Diagnosis (chest pain, altered mental status, abdominal pain women, abdominal pain men, vaginal bleeding, weakness, fever, dyspnea, syncope, headache, dizziness, GI bleed, back pain, seizure, CVA, palpatations, mental health, musculoskeletal)? @ -Differential Musculoskeletal Muscular strain, contusion, ligament sprain, fracture, arthritis, septic arthritis, bursitis, cellulitis, muscle spasm, nerve compression, DVT, arterial occlusion, herpes zoster, electrolyte abnormality, tumor.... This is not meant to be in all inclusive list EKG interpreted by me (3pts min.). @ -As above X-rays interpreted by me (1pt min.). @ -X-ray shows spiral fracture of the fifth metatarsal CT interpreted by me (1pt min.). @ -Negative CT of the brain and cervical spine U/S interpreted by me (1pt. min.). @ -None done What testing was considered but not performed or refused? (CT, X-rays, U/S, labs)? Why? @ -None What meds were considered but not given or refused? Why? @ -None Did you discuss the management of the patient with other professionals (professionals i.e. , PA, [employer], lab, RT, psych nurse, social media intern, learning specialist, teacher, chief lifestyle officer, casework manager)? Give summary @ -With Dr. Cha who accepted admission Was smoking cessation discussed for >3mins.? @ -No Was critical care preformed (if so, how long)? @ -No Were there social determinants of health that impacted care today? How? (Homelessness, low income, unemployed, alcoholism, drug addiction, transportation, low edu. Level, literacy, decrease access to med. care, detention, rehab)? @ -Alcoholism Was there de-escalation of care discussed even if they declined (Discuss DNR or withdrawal of care, Hospice)? DNR status @ -No What co-morbidities impacted this encounter? (DM, HTN, Smoking, COPD, CAD, Ca ncer, CVA, ARF, Chemo, Hep., AIDS, mental health diagnosis, sleep apnea, morbid obesity)? @ -History of withdrawal seizures Was patient admitted / discharged? Hospital course, mention meds given and route, prescriptions, significant lab abnormalities, going to OR and other pertinent info. @ -47-year-old male presenting for evaluation of foot injury post fall as well as alcohol withdrawal. Patient has history of withdrawal seizures. Patient would like to stop taking alcohol and does not want to continue drinking if he goes home. He is having tremors at this time. X-ray shows spiral fracture of the fifth metatarsal. Negative CT of the brain and cervical spine. Patient is placed on [facility] protocol. He would like to be admitted. I spoke with Dr. Cha who accepted admission. I discussed the case my attending Dr. Diane Undiagnosed new problem with uncertain prognosis? @ -No Drug Therapy requiring intensive monitoring for toxicity (Heparin, Nitro, Insulin, Cardizem)? @ -No Were any procedures done? @ -No Diagnosis/symptom? @ -Alcohol withdrawal Acute, or Chronic, or Acute on Chronic? @ -Acute Uncomplicated (without systemic symptoms) or Complicated (systemic symptoms)? @ -Uncomplicated Side effects of treatment? @ -No Exacerbation, Progression, or Severe Exacerbation? @ -No Poses a threat to life or bodily function? How? (Chest pain, [place], [place], pneumonia, PE, COPD, DKA, ARF, appy, cholecystitis, CVA, Diverticulitis, Homicidal, Suicidal, threat to staff... and all critical care pts) @ -Yes Disposition Clinical Impression: Alcohol withdrawal, Fracture of fifth metatarsal bone of left foot Disposition: ADMITTED IP TO THIS HOSP Condition: Fair Time of Disposition: 19:35
--- NOTE | 2023-01-24 18:04 | XR ---
EXAMINATION TYPE: XR foot complete LT DATE OF EXAM: 01/24/2023 5:12 PM INDICATION: Patient age:Male; 47 years old; Reason for study: fall; COMPARISON: None TECHNIQUE: The left foot was examined in the AP, oblique, and lateral projections. FINDINGS/IMPRESSION: : Acute spiral fracture through the fifth metatarsal. No evidence of intraventricular extension. There is 2 mm displacement. No additional fractures visualized.
--- NOTE | 2023-01-24 18:31 | CT ---
EXAMINATION TYPE: CT brain cspine wo con CT DLP: 1363.7 mGycm, Automated exposure control for dose reduction was used. DATE OF EXAM: 01/24/2023 6:10 PM COMPARISON: None. CLINICAL INDICATION:Male, 47 years old with history of fall; Pt fell down a couple stairs 2 days ago and hit head. Possible seizure with a hx of seizures. TECHNIQUE: Brain: Multiple axial CT images of the brain were obtained without IV contrast. Cspine: Axial CT images from the skull base to the inferior aspect of T2 we obtained without intraven ous contrast. Coronal and sagittal reformatted images were also reviewed. FINDINGS: Brain: Extra-axial spaces: No abnormal extra-axial fluid collections. Ventricular system: Within normal limits Cerebral parenchyma: No acute intraparenchymal hemorrhage or mass effect. The sams-white junction is well differentiated. Cerebellum: Unremarkable. Mass effect: No evidence of midline shift. Intracranial vasculature: unremarkable Soft tissues: Normal. Calvarium/osseous structures: No depressed skull fracture. Paranasal sinuses and mastoid air cells: Clear. Visualized orbits: Orbital contents are intact. Cervical spine: Fracture: None. Osseous structures: Multilevel degenerative disc disease changes with endplate spurring and disc oste ophyte complex's. Vertebral alignment: Within normal limits. Spinal canal/Neural Foramina: No evidence of significant spinal canal narrowing. No evidence for sign ificant neural foraminal stenosis. Neck soft tissues: Prevertebral soft tissues are within normal limits. Other: The airway is patent. The lung apices are clear. Atherosclerosis at the carotid bifurcations. IMPRESSION: 1. No acute intracranial process. 2. No evidence of cervical spine fracture. 3. Mild multilevel degenerative disc disease.
[2023-01-24] MEDS ORDERED: KETOROLAC 15 MG/ML 1 ML VIAL IVP PRN (19:33)
[2023-01-24] MEDS ORDERED: NALOXONE 0.4 MG/ML 1 ML VIAL IV PRN (19:33)
[2023-01-24] MEDS ORDERED: IBUPROFEN 400 MG TAB PO PRN (19:33)
[2023-01-24] MEDS: SODIUM CHLORIDE 0.9% 1,000 ML IV SCH (19:59)
--- NOTE | 2023-01-25 02:22 | P.HPIM ---
History of Present Illness H&P Date: 01/24/23 Chief Complaint: Alcohol withdrawal 47-year-old male denies any significant past medical history except for alcohol dependence Patient decided to quit alcohol did not give any specific reason his last drink was on his way to the hospital he drinks daily a fifth of vodka. Coming in due to increase shakiness in his upper extremities he also had sustained a fall 2 days ago when he was trying to climb some flight of stairs T some pain in his left foot showing fifth metatarsal fracture and left foot drop there is no loss of consciousness since Otherwise he denies any recent travel or hospital stay Review of Systems Pertinent positives as noted in HPI. All other systems were reviewed and are negative Past Medical History Past Medical History: Hypertension, Seizure Disorder Additional Past Medical History / Comment(s): withdrawal related seizures for about 3 years, seizure 10/03/21 and 07/24/22 History of Any Multi-Drug Resistant Organisms: None Reported Past Surgical History: Orthopedic Surgery Past Anesthesia/Blood Transfusion Reactions: Unable to Obtain Past Psychological History: Depression, PTSD Smoking Status: Current every day smoker Past Alcohol Use History: Abuse, Daily, Heavy Past Drug Use History: Marijuana - Past Family History Father Family Medical History: COPD Medications and Allergies Home Medications Medication Instructions Recorded Confirmed Type Thiamine [Vitamin B-1] 100 mg PO BID-W/MEALS tab 11/14/21 01/24/23 Rx Cholecalciferol [Vitamin D3 (25 50 mcg PO DAILY 01/12/22 01/24/23 History Mcg = 1000 Iu)] Multivitamins, Thera [Multivitamin 1 tab PO DAILY 01/12/22 01/24/23 History (formulary)] Folic Acid 1 mg PO DAILY 01/13/22 01/24/23 History buPROPion SR [Wellbutrin SR] 150 mg PO DAILY 01/24/23 01/24/23 History Allergies Allergy/AdvReac Type Severity Reaction Status Date / Time Penicillins Allergy Swelling/Ra Verified 01/24/23 17:54 sh Physical Exam Vitals: Vital Signs Temp Pulse Resp BP Pulse Ox 01/24/23 20:45 110 H 16 140/87 98 01/24/23 18:58 88 20 149/87 96 01/24/23 16:20 98.2 F 92 18 143/83 98 Intake and Output 01/24/23 01/24/23 01/24/23 06:59 14:59 22:59 Other: Weight 70.307 kg Constitutional: No acute distress, conversant, pleasant Eyes: Anicteric sclerae, moist conjunctiva, Pupils equal round reactive to light ENMT: NC/AT Oropharynx clear, no erythema, or exudates Neck: Supple, no masses, or JVD No carotid bruits No thyromegaly Lungs: Clear to auscultation Clear to percussion Normal respiratory effort, no accessory muscle use Cardiovascular: Heart regular in rate and rhythm, No murmurs, gallops, or rubs No peripheral edema Abdominal: Soft Nontender, no guarding, rebound or rigidity Abdomen moving with respiration Normoactive bowel sounds No hepatomegaly, No splenomegaly No palpable mass No abdominal wall hernia noted Skin: Normal temperature, tone, texture, turgor No induration No subcutaneous nodules No rash, lesions No ulcers Extremities: No digital cyanosis No clubbing Pedal pulses intact and symmetrical Radial pulses intact and symmetrical No calf tenderness Psychiatric: Alert and oriented to person, place and time Appropriate affect fair judgement Neuro Muscles Strength 5/5 in all 4 extremities Sensation to light touch grossly present throughout Cranial nerves II-XII grossly intact Lymphatics: no palpable cervical or supraclavicular lymph nodes Assessment and Plan Assessment: 47-year-old male with history of alcohol abuse coming in due to alcohol withdrawal symptoms I spoke with the ED doctor and accepted the admission for neurology evaluation with anticipated length of stay less than 2 midnights Pseudoseizure-like activity Computed tomography scan of the brain showed no acute pathology intracranially X-ray of the foot showing acute spiral fracture of the fifth metatarsal of the bone of the foot Continue with IV fluid hydration Pain control Await MRI results of the brain Await neurology evaluation of the patient Alcohol dependence Counseled to quit drug of abuse HPI replacement therapy will be offered as needed Full code DVT prophylaxis heparin subcutaneously
[2023-01-25] MEDS: LORazepam 2 MG/ML INJ IV PRN ×2 (08:14→11:14)
[2023-01-25] MEDS: buPROPion SR 150 MG TABLET.ER PO SCH (08:15)
[2023-01-25] MEDS: THIAMINE 100 MG TAB PO SCH (08:15)
[2023-01-25 09:10] LABS: HCT 40.6 % (39.0-53.0); HGB 13.8 gm/dL (13.0-17.5); MCH 30.8 pg (25.0-35.0); MCHC 34.1 g/dL (31.0-37.0); MCV 90.4 fL (80.0-100.0); Mean Platelet Volume 9.8; Platelet Count 135 k/uL (150-450); RBC 4.49 m/uL (4.30-5.90); RDW 13.1 % (11.5-15.5); WBC 9.2 k/uL (3.8-10.6)
[2023-01-25 09:25] LABS: ALT 53 U/L (4-49); AST 107 U/L (17-59); African American GFR (CKD) >90 (>60 ml/min/1.73 sqM); Albumin 4.2 g/dL (3.5-5.0); Albumin/Globulin Ratio 1.4; Alkaline Phosphatase 73 U/L (38-126); Anion Gap 10 mmol/L; Blood Urea Nitrogen 15 mg/dL (9-20); Calcium 9.1 mg/dL (8.4-10.2); Carbon Dioxide 29 mmol/L (22-30); Chloride 94 mmol/L (98-107); Glucose 140 mg/dL (74-99); Magnesium 1.5 mg/dL (1.6-2.3); Non-African American GFR(CKD) >90 (>60 ml/min/1.73 sqM); Potassium 3.5 mmol/L (3.5-5.1); Sodium 133 mmol/L (137-145); Total Bilirubin 1.8 mg/dL (0.2-1.3); Total Protein 7.2 g/dL (6.3-8.2)
[2023-01-25] MEDS ORDERED: PROCHLORPERAZINE INJ 10 MG/2 ML VIAL IVP PRN (11:48)
--- NOTE | 2023-01-25 15:25 | P.CNOR ---
History of Present Illness - [facility] Consult date: 01/25/23 Requesting physician: Carlos Eduardo Gavin Consult reason: other (Fifth metatarsal spiral fracture) History of present illness: Patient is a 47-year-old male who presented the emergency department yesterday status post fall downstairs at home. Orthopedics was consulted for left fifth metatarsal fracture. Patient was seen at bedside this morning with a splint to left lower extremity. Patient says yesterday he got home when he walked down the stairs she fell down a few steps immediately began having left foot pain. It was found that he has a left fifth metatarsal fracture. Patient is currently in splint. Patient denies any other locations of pain and complains of left foot pain. Patient is currently being treated for alcohol withdrawal. Patient denies chest pain, fever, shortness breath, nausea, vomiting, change in vision, loss of bowel/bladder control. Past Medical History Past Medical History: Hypertension, Seizure Disorder Additional Past Medical History / Comment(s): withdrawal related seizures for ab out 3 years, seizure 10/03/21 and 07/24/22 History of Any Multi-Drug Resistant Organisms: None Reported Past Surgical History: Orthopedic Surgery Past Anesthesia/Blood Transfusion Reactions: Unable to Obtain Past Psychological History: Depression, PTSD Smoking Status: Current every day smoker Past Alcohol Use History: Abuse, Daily, Heavy Past Drug Use History: Marijuana - Past Family History Father Family Medical History: COPD Medications and Allergies Home Medications Medication Instructions Recorded Confirmed Type Thiamine [Vitamin B-1] 100 mg PO BID-W/MEALS tab 11/14/21 01/24/23 Rx Cholecalciferol [Vitamin D3 (25 50 mcg PO DAILY 01/12/22 01/24/23 History Mcg = 1000 Iu)] Multivitamins, Thera [Multivitamin 1 tab PO DAILY 01/12/22 01/24/23 History (formulary)] Folic Acid 1 mg PO DAILY 01/13/22 01/24/23 History buPROPion SR [Wellbutrin SR] 150 mg PO DAILY 01/24/23 01/24/23 History Allergies Allergy/AdvReac Type Severity Reaction Status Date / Time Penicillins Allergy Swelling/Ra Verified 01/24/23 17:54 sh Physical Examination Inspection: Posterior shiort leg extend splint present to the left lower extremity. Ecchymosis present along the lateral edge of the left foot along the 5th metatarsal. Negative for any open fractures, significant erythema/open wounds. sensation: Equal, symmetric, bilaterally intact in upper and lower extremities. Palpation: moderate-significant TTP over left fifth metatarsal. Nontender to palpation throughout rest of exam range of motion: Patient is able to flex and extend left knee fully. Patient does have similar range of motion left ankle secondary splint and referred pain from the left foot. Patient is able to wiggle digits in left lower extremity. Motor: left ankle motor exam not performed due to injury. 5/5 in all other major motor groups. Neurovascular status: Radial pulses intact, 2+ bilaterally. Cap refill under 3 seconds in digits of the upper extremities. Special tests: Negative Homans bilaterally. Results - Labs Labs: Abnormal Lab Results - Last 24 Hours (Table) 01/25/23 01/25/23 Range/Units 08:59 08:59 Plt Count 135 L (150-450) k/uL Sodium 133 L (137-145) mmol/L Chloride 94 L (98-107) mmol/L Creatinine 0.62 L (0.66-1.25) mg/dL Glucose 140 H (74-99) mg/dL Magnesium 1.5 L (1.6-2.3) mg/dL Total Bilirubin 1.8 H (0.2-1.3) mg/dL AST 107 H (17-59) U/L ALT 53 H (4-49) U/L H & H 01/25/23 Range/Units 08:59 Hgb 13.8 (13.0-17.5) gm/dL Hct 40.6 (39.0-53.0) % Result Diagrams: 01/25/23 08:59 01/25/23 08:59 - Diagnostic results Comments: Foot x-ray presents with left fifth metatarsal fracture, closed. Assessment and Plan Assessment: 1. Left fifth metatarsal fracture 2. Alcohol withdrawal Plan: 1. Left fifth metatarsal fracture - x-ray left foot demonstrated left 5th metatarsal fracture which is closed. Patient is currently in splint. Cam Walker boot has been ordered. Crutches. Recommend patient to be nonweightb earing to left lower extremity at this time. Pain medication as needed. Once patient has Cam Walker boot, patient will be stable for discharge from an orthopedic standpoint. Recommend patient to follow up with orthopedic foot/ankle surgeon once discharged for outpatient eval. We'll continue to be available as needed. 2. Appreciate medical management 3. Pain management - toradol 4. DVT prophylaxis - mechanical 5. PT/OT - recommend nonweightbearing left lower extremity 6. Appreciate consult Time with Patient: Less than 30
[2023-01-25 15:47] LABS: Amphetamine Screen,Urine Not Detected (NotDetected); Barbiturate Screen,Urine Not Detected (NotDetected); Benzodiazepines Screen,Urine Detected (NotDetected); Cocaine Screen,Urine Not Detected (NotDetected); Methadone Screen, Urine Not Detected (NotDetected); Opiate Screen,Urine Not Detected (NotDetected); Oxycodone Screen, Urine Not Detected (NotDetected); Phencyclidine Screen,Urine Not Detected (NotDetected); Tricyclic Antidepressant,Urine Not Detected (NotDetected); Urn Cannabinoid Scrn Detected (NotDetected)
--- NOTE | 2023-01-25 17:23 | P.PN ---
Subjective Progress Note Date: 01/25/23 Hospital course: Patient is a very pleasant 47-year-old male with a past medical history of hypertension, alcohol abuse, nicotine dependence, depression, PTSD, cannabinoid use, and alcohol withdrawal seizures. Patient presented to the emergency department on 01/24/23 status post reports of falling down 3 steps 2 days prior injuring left foot and right elbow. Patient underwent evaluation in the emergency department. X-ray left foot was completed showing acute spiral fracture through the fifth metatarsal with a [address] head and cervical spine completed negative for acute intercranial process and no reported evidence of cervical spine fracture or abnormality. Per ER provider documentation patient was noted to have tremors and was concerned that patient may be going through alcohol withdrawal and therefore patient was admitted under our services at that time. Physical exam: Patient seen and fully evaluated at bedside this morning. Patient reports feeling nauseous and shaky and believes he has been experiencing some visual hallucinations stating that he has been seeing some things moving in the corner of his room. Vital signs reviewed and stable. General: Nontoxic, no distress and appears stated age. Derm: Skin warm and dry, normal coloration for ethnicity. Head: Atraumatic, normocephalic and symmetric. Eyes: EOMs intact, no lid lag, and anicteric sclera Mouth: no lip lesions, mucus membranes moist Cardiovascular: regular rate and rhythm with normal S1S2, no murmur, positive posterior tibial pulses bilaterally, and cap refill < 2 seconds. Lungs: Respirations even, regular, and unlabored on room air. Lungs CTA bilaterally, no rhonchi, no rales, no wheezing, and no accessory muscle usage. Abdominal: soft, nontender to palpation, no guarding, no appreciable organomegaly Ext: ROM intact. No gross muscle atrophy, no edema, no contractures Neuro: Speech clear, face symmetrical and CN II-XII grossly intact with no noted focal neuro deficits. Tremors noted. Psych: Alert and oriented to person, place, time, and situation. Appropriate and pleasant affect. Assessment and Plan of Care: Alcohol withdrawal with DTs Transaminitis secondary to chronic alcohol abuse Thrombocytopenia secondary to chronic alcohol abuse Hypomagnesemia Hypochloremic hyponatremia -Continue monitoring of CIWA scores and patient to be medicated with Ativan 0.5 mg every 4 hours as needed for CIWA score of 4-5, Ativan 1 mg every 4 hours for CIWA score of 6-7, Ativan 2 mg every 3 hours CIWA score of 8-9, and Ativan 2 mg every 2 hours forr CIWA score of 10 or greater. Current CIWA score is 8. -Continuous IV hydration. -Thiamine 100 mg twice a day -Multivitamin daily -Folate 1 mg daily -Seizure, fall, aspiration, and elopement precautions in place. -Urine drug screen ordered and upon following up with results positive for benzodiazepines and marijuana -Ordered CBC and CMP and upon follow-up CBC positive for thrombocytopenia with platelet count of 135, CMP positive for hyponatremia with sodium 133, hypochloremia with chloride 94, hypomagnesemia with magnesium of 1.5, and transaminitis with AST of 107, ALT 53, and total bilirubin of 1.8. -Order placed for magnesium 3 g IVPB for replacement. -Continued close monitoring of electrolytes with repeat CMP and magnesium tomorrow morning and we will replace abnormal electrolyte values as indicated based upon these results. -Telemetry monitoring. Displaced fifth metatarsal secondary to spiral fracture -X-ray left foot was completed showing acute spiral fracture through the fifth metatarsal with a 2 mm displacement. -Orthopedic surgery consulted, appreciate recommendations -Symptomatic care and pain management. Data review: -Ordered CBC and CMP and upon follow-up CBC positive for thrombocytopenia with platelet count of 135, CMP positive for hyponatremia with sodium 133, hypochloremia with chloride 94, hypomagnesemia with magnesium of 1.5, and transaminitis with AST of 107, ALT 53, and total bilirubin of 1.8. -Urine drug screen ordered and upon following up with results positive for benzodiazepines and marijuana Imaging reviewed -No new imaging for review. CODE STATUS: Full code DVT prophylaxis: Lovenox Discussed with: patient and RN Anticipated discharge date: clinical course to determine Anticipated discharge place: home Patient was seen independently by Nurse Pracitioner. This document was prepared using [employer] dictation software. Please allow for errors in paint spray inspector, while rare they do occur. I reviewed the documentation as provided by the SEA above, who is the original author of this note. I agree with the documented assessment and plan, with the following changes: none Objective - Vital Signs Vital signs: Vital Signs Temp 97.8 F 01/25/23 07:00 Pulse 84 01/25/23 07:00 Resp 20 01/25/23 07:00 BP 143/84 01/25/23 07:00 Pulse Ox 96 01/25/23 07:00 FiO2 Intake & Output 01/24/23 01/25/23 01/25/23 18:59 06:59 18:59 Weight 70.307 kg 70.307 kg Other: Voiding Method Toilet Urinal # Voids 5 - Labs CBC & Chem 7: 01/25/23 08:59 01/25/23 08:59
[2023-01-25] MEDS: MAGNESIUM SULFATE-D5W PMX 1 GM in DEXTROSE/WATER 1 100ML.BAG IVPB SCH ×3 (18:11→21:29)
[2023-01-25] MEDS: SODIUM CHLORIDE 0.9% 1,000 ML IV SCH ×2 (18:12→23:42)
[2023-01-26 08:44] LABS: ALT 51 U/L (10-49); AST 75 U/L (14-35); Albumin 4.3 d/dL (3.8-4.9); Albumin/Globulin Ratio 1.59 Ratio (1.60-3.17); Alkaline Phosphatase 80 U/L (41-126); BUN/Creat Ratio 17.43 Ratio (12.00-20.00); Blood Urea Nitrogen 12.2 mg/dL (9.0-27.0); Calcium 9.4 mg/dL (8.7-10.3); Carbon Dioxide 26.3 mmol/L (21.6-31.8); Chloride 99 mmol/L (96-109); Globulin 2.7 d/dL (1.6-3.3); Glucose 104 mg/dL (70-110); Magnesium 2.3 mg/dL (1.5-2.4); Potassium 3.8 mmol/L (3.5-5.5); Sodium 139 mmol/L (135-145); Total Bilirubin 1.4 mg/dL (0.3-1.2)
[2023-01-26 08:48] LABS: HCT 39.9 % (39.6-50.0); HGB 13.3 d/dL (12.0-15.0); MCHC 33.3 d/dL (32.0-37.0); MCV 87.1 FL (80.0-97.0); Mean Platelet Volume 11.9 FL (9.5-12.2); NRBC Per 100 WBC 0 X 10*3/uL (0.00-0.01); Platelet Count 129 X 10*3/uL (140-440); RBC 4.58 X 10*6/uL (4.40-5.60); RDW 13.4 % (11.5-14.5); WBC 9.46 X 10*3/uL (4.50-10.00)
[2023-01-26] MEDS: ENOXAPARIN 40 MG/0.4 ML SYRINGE SQ SCH (09:11)
[2023-01-26] MEDS: THIAMINE 100 MG TAB PO SCH (09:11)
[2023-01-26] MEDS: buPROPion SR 150 MG TABLET.ER PO SCH (09:11)
--- NOTE | 2023-01-26 09:48 | P.PN ---
Subjective Progress Note Date: 01/26/23 Principal diagnosis: Fifth metatarsal fracture Patient seen at bedside this morning lying in semirecumbent position with posterior short leg splint in place and Augustin bandage present. Patient is currently awaiting Cam Walker boot and crutches. Patient denies any other changes at this time. Patient denies any other areas of pain. Patient denies chest pain, fever, shortness of breath, nausea, vomiting, change in vision, loss of bowel/bladder control. Objective - Vital Signs Vital signs: Vital Signs Temp 97.8 F 01/26/23 07:10 Pulse 72 01/26/23 07:10 Resp 16 01/26/23 07:10 BP 155/96 01/26/23 07:10 Pulse Ox 99 01/26/23 07:10 FiO2 Intake & Output 01/25/23 01/26/23 01/26/23 18:59 06:59 18:59 Intake Total 232 Output Total 300 Balance -300 232 Intake: Oral 232 Output: Urine 300 Other: Voiding Method Toilet Toilet Urinal Urinal # Voids 5 1 - Exam Inspection: Posterior shiort leg extend splint present to the left lower extremity. Ecchymosis present along the lateral edge of the left foot along the 5th metatarsal. Negative for any open fractures, significant erythema/open wounds. sensation: Equal, symmetric, bilaterally intact in upper and lower extremities. Palpation: moderate-significant TTP over left fifth metatarsal. Nontender to palpation throughout rest of exam range of motion: Patient is able to flex and extend left knee fully. Patient does have similar range of motion left ankle secondary splint and referred pain from the left foot. Patient is able to wiggle digits in left lower extremity. Motor: left ankle motor exam not performed due to injury. 5/5 in all other major motor groups. Neurovascular status: Radial pulses intact, 2+ bilaterally. Cap refill under 3 seconds in digits of the upper extremities. Special tests: Negative Homans bilaterally. - Labs CBC & Chem 7: 01/26/23 05:19 01/26/23 05:19 Labs: Abnormal Lab Results - Last 24 Hours (Table) 01/25/23 01/26/23 01/26/23 Range/Units 15:15 05:19 05:19 Plt Count 129 L (140-440) X 10*3/uL Anion Gap 13.70 H (4.00-12.00) mmol/L Total Bilirubin 1.4 H (0.3-1.2) mg/dL AST 75 H (14-35) U/L ALT 51 H (10-49) U/L Albumin/Globulin Ratio 1.59 L (1.60-3.17) Ratio U Benzodiazepines Scrn Detected H (NotDetected) U Marijuana (THC) Screen Detected H (NotDetected) Assessment and Plan Assessment: 1. Left fifth metatarsal fracture 2. Alcohol withdrawal Plan: 1. Left fifth metatarsal fracture - x-ray left foot demonstrated left 5th metatarsal fracture which is closed. Patient is currently in splint. Cam Walker boot has been ordered. Crutches. Did discuss with block and case maker this morning that CAM walker and crutches will be delivered to patient today. Recommend patient to be nonweightbearing to left lower extremity at this time. Pain medication as needed. Once patient has Cam Walker boot, patient will be stable for discharge from an orthopedic standpoint. Recommend patient to follow up with orthopedic foot/ankle surgeon once discharged for outpatient eval. patient is stable with a 10 point for discharge. At this time orthopedics is signing off. Please do not hesitate to contact us for any further questions. 2. Appreciate medical management 3. Pain management - toradol 4. DVT prophylaxis - mechanical 5. PT/OT - recommend nonweightbearing left lower extremity Time with Patient: Less than 30
--- NOTE | 2023-01-26 14:07 | P.PN ---
Subjective Progress Note Date: 01/26/23 Hospital course: Patient is a very pleasant 47-year-old male with a past medical history of hypertension, alcohol abuse, nicotine dependence, depression, PTSD, cannabinoid use, and alcohol withdrawal seizures. Patient presented to the emergency department on 01/24/23 status post reports of falling down 3 steps 2 days prior injuring left foot and right elbow. Patient underwent evaluation in the emergency department. X-ray left foot was completed showing acute spiral fracture through the fifth metatarsal with a [address] head and cervical spine completed negative for acute intercranial process and no reported evidence of cervical spine fracture or abnormality. Per ER provider documentation patient was noted to have tremors and was concerned that patient may be going through alcohol withdrawal and therefore patient was admitted under our services at that time. Physical exam: Patient seen and fully evaluated at bedside this morning. Patient reports continued feeling of shakiness and anxiousness but reports resolution of previously reported nausea and visual hallucinations. Vital signs reviewed and stable. General: Nontoxic, no distress and appears stated age. Derm: Skin warm and dry, normal coloration for ethnicity. Head: Atraumatic, normocephalic and symmetric. Eyes: EOMs intact, no lid lag, and anicteric sclera Mouth: no lip lesions, mucus membranes moist Cardiovascular: regular rate and rhythm with normal S1S2, no murmur, positive posterior tibial pulses bilaterally, and cap refill < 2 seconds. Lungs: Respirations even, regular, and unlabored on room air. Lungs CTA bilaterally, no rhonchi, no rales, no wheezing, and no accessory muscle usage. Abdominal: soft, nontender to palpation, no guarding, no appreciable organomegaly Ext: ROM intact. No gross muscle atrophy, no edema, no contractures Neuro: Speech clear, face symmetrical and CN II-XII grossly intact with no noted focal neuro deficits. Psych: Alert and oriented to person, place, time, and situation. Appropriate and pleasant affect. Assessment and Plan of Care: Alcohol withdrawal with DTs Transaminitis secondary to chronic alcohol abuse Thrombocytopenia secondary to chronic alcohol abuse Hypomagnesemia Hypochloremic hyponatremia -Continue monitoring of CIWA scores and patient to be medicated with Ativan 0.5 mg every 4 hours as needed for CIWA score of 4-5, Ativan 1 mg every 4 hours for CIWA score of 6-7, Ativan 2 mg every 3 hours CIWA score of 8-9, and Ativan 2 mg every 2 hours forr CIWA score of 10 or greater. Patient has only received 2 mg of Ativan over the past 24 hours Current CIWA score is 1. -Continue Thiamine 100 mg twice a daily, Multivitamin daily, and Folate 1 mg daily -Continue with Seizure, fall, aspiration, and elopement precautions -Morning labs completed and reviewed. CBC showed continued thrombocytopenia with platelet count of 129. BMP unremarkable. Liver profile showing improvement of transaminitis with total bili decreasing from 1.8 down to 1.4 and AST 75, and ALT of 51. Hypomagnesemia resolved with repeat morning magnesium 2.3. -Continued close monitoring of electrolytes with repeat CMP and magnesium tomorrow morning and we will replace abnormal electrolyte values as indicated based upon these results. -Telemetry monitoring. Displaced fifth metatarsal secondary to spiral fracture -X-ray left foot was completed showing acute spiral fracture through the fifth metatarsal with a 2 mm displacement. -Orthopedic surgery consulted, discussed plan of care with orthopedic surgery PA patient awaiting Cam Walker boot and may then follow up outpatient with their office in one week. -Symptomatic care and pain management. Data review: -Morning labs completed and reviewed. CBC showed continued thrombocytopenia with platelet count of 129. BMP unremarkable. Liver profile showing improvement of transaminitis with total bili decreasing from 1.8 down to 1.4 and AST 75, and ALT of 51. Hypomagnesemia resolved with repeat morning magnesium 2.3. -Vital signs reviewed and stable. Blood pressure 155/96, heart rate 72, respiratory rate 16, SpO2 of 99% on room air with temperature 97.8F. Imaging reviewed -No new imaging for review. CODE STATUS: Full code DVT prophylaxis: Lovenox Discussed with: patient, orthopedic surgery PA and RN Anticipated discharge date: clinical course to determine Anticipated discharge place: home Patient was seen independently by Nurse Pracitioner. This document was prepared using [employer] dictation software. Please allow for errors in production support supervisor, while rare they do occur. I reviewed the documentation as provided by the SEA above, who is the original author of this note. I agree with the documented assessment and plan, with the following changes: none Objective - Vital Signs Vital signs: Vital Signs Temp 97.8 F 01/26/23 07:10 Pulse 72 01/26/23 07:10 Resp 16 01/26/23 07:10 BP 155/96 01/26/23 07:10 Pulse Ox 99 01/26/23 07:10 FiO2 Intake & Output 01/25/23 01/26/23 01/26/23 18:59 06:59 18:59 Output Total 300 Balance -300 Output: Urine 300 Other: Voiding Method Toilet Toilet Urinal Urinal # Voids 5 1 - Labs CBC & Chem 7: 01/26/23 05:19 01/26/23 05:19 Labs: Abnormal Lab Results - Last 24 Hours (Table) 01/25/23 01/25/23 01/25/23 Range/Units 08:59 08:59 15:15 Plt Count 135 L (150-450) k/uL Sodium 133 L (137-145) mmol/L Chloride 94 L (98-107) mmol/L Creatinine 0.62 L (0.66-1.25) mg/dL Glucose 140 H (74-99) mg/dL Magnesium 1.5 L (1.6-2.3) mg/dL Total Bilirubin 1.8 H (0.2-1.3) mg/dL AST 107 H (17-59) U/L ALT 53 H (4-49) U/L U Benzodiazepines Scrn Detected H (NotDetected) U Marijuana (THC) Screen Detected H (NotDetected)
[2023-01-26] MEDS: SODIUM CHLORIDE 0.9% 1,000 ML IV SCH (19:34)
[2023-01-27 02:00] VITALS: RESP 16
[2023-01-27] MEDS: SODIUM CHLORIDE 0.9% 1,000 ML IV SCH (04:58)
[2023-01-27 07:29] VITALS: BP 162/90; PULSE 66; TEMP 98
[2023-01-27] MEDS: buPROPion SR 150 MG TABLET.ER PO SCH (09:29)
[2023-01-27] MEDS: ENOXAPARIN 40 MG/0.4 ML SYRINGE SQ SCH (09:29)
[2023-01-27] MEDS: THIAMINE 100 MG TAB PO SCH (09:29)
--- NOTE | 2023-01-27 11:27 | P.DS ---
Providers Date of admission: 01/24/23 20:40 Expected date of discharge: 01/27/23 Attending physician: Luis Cha MD Consults: 01/24/23 19:33 Consult Physician Urgent Consulting Provider: Ashkan Jovel Consult Reason/Comments: Fifth metatarsal spiral fracture Do you want consulting provider notified?: Yes, Notify in am Primary care physician: [facility] Hospital Course: Discharge Diagnosis: Alcohol withdrawal with DTs. Patient treated for withdrawal and strongly encouraged to avoid any and all alcohol use. Transaminitis secondary to chronic alcohol abuse. Improved. Thrombocytopenia secondary to chronic alcohol abuse Hypomagnesemia, replaced and resolved. Hypochloremic hyponatremia, resolved. Displaced fifth metatarsal secondary to spiral fracture -X-ray left foot was completed showing acute spiral fracture through the fifth metatarsal with a 2 mm displacement. -Patient to ambulate only with Cam Walker boot and may then follow up outpatient with their office in one week. Hospital Course: Patient is a very pleasant 47-year-old male with a past medical history of hypertension, alcohol abuse, nicotine dependence, depression, PTSD, cannabinoid use, and alcohol withdrawal seizures. Patient presented to the emergency department on 01/24/23 status post reports of falling down 3 steps 2 days prior injuring left foot and right elbow. Patient underwent evaluation in the emergency department. X-ray left foot was completed showing acute spiral fracture through the fifth metatarsal with a [address] head and cervical spine completed negative for acute intercranial process and no reported evidence of cervical spine fracture or abnormality. Per ER provider documentation patient was noted to have tremors and was concerned that patient may be going through alcohol withdrawal and therefore patient was admitted under our services at that time. Patient underwent treatment for detox and is doing well. Patient strongly encouraged to avoid any and all alcohol use. He was evaluated by orthopedic surgery and a Cam Walker boot was placed. Patient instructed activity as tolerated and use of Cam Walker boot at all times and to follow up outpatient with orthopedic surgery office next week. Physical exam: Patient seen and fully evaluated at bedside this morning. Patient reports feeling much better this morning. He is sitting up in the chair bedside and report that he is ready to return home. Patient verbalizes understanding of refraining from any and all alcohol use. Patient provided with community resources available to him. Vital signs reviewed and stable. General: Nontoxic, no distress and appears stated age. Derm: Skin warm and dry, normal coloration for ethnicity. Head: Atraumatic, normocephalic and symmetric. Eyes: EOMs intact, no lid lag, and anicteric sclera Mouth: no lip lesions, mucus membranes moist Cardiovascular: regular rate and rhythm with normal S1S2, no murmur, positive posterior tibial pulses bilaterally, and cap refill < 2 seconds. Lungs: Respirations even, regular, and unlabored on room air. Lungs CTA bilaterally, no rhonchi, no rales, no wheezing, and no accessory muscle usage. Abdominal: soft, nontender to palpation, no guarding, no appreciable organomegaly Ext: ROM intact. No gross muscle atrophy, no edema, no contractures Neuro: Speech clear, face symmetrical and CN II-XII grossly intact with no noted focal neuro deficits. Psych: Alert and oriented to person, place, time, and situation. Appropriate and pleasant affect. A total of 33 minutes of time were spent preparing this complex discharge summary. Pt was discharged on 01/27/23 at 11:25 AM. Patient was seen independently by Nurse Practitioner. This document was prepared using [employer] dictation software. Please allow for errors in rosin barrel filler while rare they do occur. I reviewed the documentation as provided by the SEA above, who is the original author of this note. I agree with the documented assessment and plan, with the following changes: none Patient Condition at Discharge: Stable Plan - Discharge Summary Discharge Rx Participant: No New Discharge Prescriptions: Continue Multivitamins, Thera [Multivitamin (formulary)] 1 tab PO DAILY Folic Acid 1 mg PO DAILY Thiamine [Vitamin B-1] 100 mg PO BID-W/MEALS tab Cholecalciferol [Vitamin D3 (25 Mcg = 1000 Iu)] 50 mcg PO DAILY buPROPion SR [Wellbutrin SR] 150 mg PO DAILY Discharge Medication List Thiamine [Vitamin B-1] 100 mg PO BID-W/MEALS tab 11/14/21 [Rx] Cholecalciferol [Vitamin D3 (25 Mcg = 1000 Iu)] 50 mcg PO DAILY 01/12/22 [History] Multivitamins, Thera [Multivitamin (formulary)] 1 tab PO DAILY 01/12/22 [History] Folic Acid 1 mg PO DAILY 01/13/22 [History] buPROPion SR [Wellbutrin SR] 150 mg PO DAILY 01/24/23 [History] Follow up Appointment(s)/Referral(s): Ashkan Jovel DO [Doctor of Osteopathic Medicine] - 1 Week [facility] [Primary Care Provider] - 1-2 days Patient Instructions/Handouts: Abuse of Alcohol (DC), Alcohol Withdrawal (DC) Activity/Diet/Wound Care/Special Instructions: Activity: As tolerated walking only with Cam Walker boot at all times. Take breaks as needed. Diet: Heart healthy and carb consistent diet. Avoid salts, or foods with hidden salts such as canned or boxed foods and frozen dinners. Extra salt makes your heart work harder and traps the fluid in your body for longer. Special Instructions: Take all of your medications as directed and remember to keep all of your doctor's appointments and follow-up as needed. I truly thank you for your service, it is always an honor to be able to provide care for a !! Wishing you and your family an amazing January!!! Thank you for allowing us to participate in your care, it was truly a pleasure having you for our patient!!! Discharge/Stand Alone Forms: AA Meetings [facility], Community Resources, Inp Substance Abuse Facilities Discharge Disposition: HOME SELF-CARE
== END 2023-01-27 12:32 | disposition home or self-care (01) | DRG 897 ==
LOC: EC 16:09 → 6NMEDSUR 20:37 → OBSVTOIN 20:40 → 6NMEDSUR 21:17
PROVIDERS: ADMIT Internal Medicine; ATTEND Internal Medicine
PROC: HZ2ZZZZ Detoxification Services for Substance Abuse Treatment (ICD-10-PCS; principal; 2023-01-24)
DX: F10.231 Alcohol dependence with withdrawal delirium (principal); E87.1 Hypo-osmolality and hyponatremia; S09.90XA Unspecified injury of head, initial encounter; D69.59 Other secondary thrombocytopenia; E87.8 Other disorders of electrolyte and fluid balance, not elsewhere classified; I10 Essential (primary) hypertension; F32.A Depression, unspecified; S59.901A Unspecified injury of right elbow, initial encounter; E83.42 Hypomagnesemia; F17.210 Nicotine dependence, cigarettes, uncomplicated; S92.352A Displaced fracture of fifth metatarsal bone, left foot, initial encounter for closed fracture; F43.10 Post-traumatic stress disorder, unspecified; W10.9XXA Fall (on) (from) unspecified stairs and steps, initial encounter; Z88.0 Allergy status to penicillin; Z79.899 Other long term (current) drug therapy
CPT/HCPCS: 70450; 72125; 80053; 80306; 83735; 85027; 96372; 96374; 99285

== ENCOUNTER 2023-05-17 17:47 | Observation (INO) | payer OTHER ==
--- NOTE | 2023-05-17 19:34 | ED ---
General Adult HPI - General Source: RN notes reviewed <Lisset Gauthier - Last Filed: 05/17/23 19:34> <Efren Arrington - Last Filed: 05/17/23 22:00> - General Stated complaint: Detox Time Seen by Provider: 05/17/23 19:34 - History of Present Illness Initial comments: 47-year-old male with past medical history significant for EtOH abuse presents emergency Department with with child. Patient reports that he has been 7 months sober previously. He reports a 6 day roman but has been drinking nothing but liquor. Patient reports seizure history upon attempting alcohol withdrawal. (Lisset Gauthier) This 47-year-old male presents with a complaint of alcohol intoxication. He states that he is worried about going through withdrawals. He states that he feels very shaky like how he is felt before having previous alcohol overall seizures. He states that he would like to be admitted for several days as he is worried about going into DTs. He otherwise denies any chest pain or shortness of breath. His been no fevers or chills. He denies any injuries. There is no depression or suicidal ideations. He states that he is an alcoholic but has been clean for the past several months but started on a binge again 6 days ago. He states that he drank a pint today but has been drinking a fifth a day recently. No other complaints or modifying factors. (Efren Arrington) - Related Data Home Medications Medication Instructions Recorded Confirmed Cholecalciferol [Vitamin D3 (25 50 mcg PO DAILY 01/12/22 01/24/23 Mcg = 1000 Iu)] Multivitamins, Thera [Multivitamin 1 tab PO DAILY 01/12/22 01/24/23 (formulary)] Folic Acid 1 mg PO DAILY 01/13/22 01/24/23 buPROPion SR [Wellbutrin SR] 150 mg PO DAILY 01/24/23 01/24/23 Previous Rx's Medication Instructions Recorded Thiamine [Vitamin B-1] 100 mg PO BID-W/MEALS tab 11/14/21 Allergies Allergy/AdvReac Type Severity Reaction Status Date / Time Penicillins Allergy Swelling/Ra Verified 05/17/23 19:37 sh Review of Systems ROS Other: All systems not noted in ROS Statement are negative. <Lisset Gauthier - Last Filed: 05/17/23 19:34> ROS Other: All systems not noted in ROS Statement are negative. <Efren Arrington - Last Filed: 05/17/23 22:00> ROS Statement: Those systems with pertinent positive or pertinent negative responses have been documented in the HPI. Past Medical History Past Medical History: Hypertension, Seizure Disorder Additional Past Medical History / Comment(s): withdrawal related seizures for about 3 years, seizure 10/03/21 and 07/24/22 History of Any Multi-Drug Resistant Organisms: None Reported Past Surgical History: Orthopedic Surgery Past Anesthesia/Blood Transfusion Reactions: Unable to Obtain Past Psychological History: Depression, PTSD Smoking Status: Current every day smoker Past Alcohol Use History: Abuse, Daily, Heavy Past Drug Use History: Marijuana - Past Family History Father Family Medical History: COPD <Lisset Gauthier - Last Filed: 05/17/23 19:34> General Exam <Lisset Gauthier - Last Filed: 05/17/23 19:34> <Efren Arrington - Last Filed: 05/17/23 22:00> - General Exam Comments Initial Comments: Visual Physical Exam Vital signs reviewed General: Well-appearing, nontoxic, no acute distress. Head: Normocephalic, atraumatic Eyes: PERRLA, EOMI ENT: Airway patent Chest: Nonlabored breathing Skin: No visual rash, normal skin tone Neuro: Alert and oriented 3 Musculoskeletal: No gross abnormalities I performed the quick note portion of this exam, verbal signature Lisset Gauthier PA-C (Lisset Gauthier) GENERAL: The patient is well nourished and well hydrated. VITAL SIGNS: Heart rate, blood pressure, respiratory rate reviewed as recorded in nurse's notes. EYES: Pupils are round and reactive. Extraocular movements are intact. No conjunctival / lid redness or swelling. ENT: No external evidence of injury, swelling, or ecchymosis. Airway is patent. Throat is clear. NECK: Nontender. No swelling or evidence of injury. No subcutaneous emphysema. Trachea is midline. No thyroid mass. HEART: Regular rate and rhythm. Good peripheral pulses. LUNGS/CHEST: Breath sounds clear and equal bilaterally. No rales, rhonchi, or wheezes. No ecchymosis, subcutaneous emphysema, or tenderness. ABDOMEN: Abdomen soft without tenderness. No palpable masses or organomegaly. No peritoneal signs. No abdominal wall swelling or ecchymosis. EXTREMITIES: No extremity tenderness. Normal muscle tone and function. No thoracolumbar tenderness. NEUROLOGIC: Sensation is grossly intact. Cranial nerve exam reveals face is symmetrical, tongue is midline, speech is clear. SKIN: No abrasions or ecchymosis is noted. No induration or masses noted. PSYCHIATRIC: Alert and oriented. Appropriate behavior. (Efren Arrington) Course Vital Signs 05/17/23 19:32 Temperature 98 F Pulse Rate 94 Respiratory 18 Rate Blood Pressure 139/88 O2 Sat by Pulse 98 Oximetry Medical Decision Making - Lab Data Result diagrams: 05/17/23 19:48 05/17/23 19:48 <Efren Arrington - Last Filed: 05/17/23 22:00> - Medical Decision Making The patient was seen and examined. All diagnostics are reviewed. IV is established. The alcohol level came back elevated at 359. Remainder of labs did not show any acute significant abnormalities. The patient is worried about alcohol withdrawal seizures. Old records were reviewed and it does appear as though he is had delirium tremens in the past. Case is discussed with internal medicine and they're agreeable with admission. Patient is in no distress on recheck. Was pt. sent in by a medical professional or institution (TAWNY Sánchez, HABILITATIVE INTERVENTIONIST, urgent care, hospital, or prison...) When possible be specific @ -No Did you speak to anyone other than the patient for history (EMS, parent, family, police, friend...)? What history was obtained from this source @ -No Did you review nursing and triage notes (agree or disagree)? Why? @ -I reviewed and agree with nursing and triage notes Were old charts reviewed (outside hosp., previous admission, EMS record, old EKG, old radiological studies, urgent care reports/EKG's, prison records)? Report findings @ -Old records were reviewed. Differential Diagnosis (chest pain, altered mental status, abdominal pain women, abdominal pain men, vaginal bleeding, weakness, fever, dyspnea, syncope, headache, dizziness, GI bleed, back pain, seizure, CVA, palpatations, mental health, musculoskeletal)? @ -Alcohol intoxication, alcohol abuse, impending DTs. EKG interpreted by me (3pts min.). @ -None done X-rays interpreted by me (1pt min.). @ -None done CT interpreted by me (1pt min.). @ -None done U/S interpreted by me (1pt. min.). @ -None done What testing was considered but not performed or refused? (CT, X-rays, U/S, labs)? Why? @ -None What meds were considered but not given or refused? Why? @ -None Did you discuss the management of the patient with other professionals (professionals i.e. , PA, HABILITATIVE INTERVENTIONIST, lab, RT, psych nurse, social science professor, extrusion press adjuster, teacher, electorate officer, correctional counselor/case manager)? Give summary @ -Case is discussed with internal medicine is agreeable with admission. Was smoking cessation discussed for >3mins.? @ -No Was critical care preformed (if so, how long)? @ -No Were there social determinants of health that impacted care today? How? (Homelessness, low income, unemployed, alcoholism, drug addiction, transportation, low edu. Level, literacy, decrease access to med. care, group home, rehab)? @ -Social determinants to include that of alcohol abuse. Was there de-escalation of care discussed even if they declined (Discuss DNR or withdrawal of care, Hospice)? DNR status @ -No What co-morbidities impacted this encounter? (DM, HTN, Smoking, COPD, CAD, Ca ncer, CVA, ARF, Chemo, Hep., AIDS, mental health diagnosis, sleep apnea, morbid obesity)? @ -Alcohol abuse Was patient admitted / discharged? Hospital course, mention meds given and route, prescriptions, significant lab abnormalities, going to OR and other pert ne info. @ -Patient was admitted Undiagnosed new problem with uncertain prognosis? @ -No Drug Therapy requiring intensive monitoring for toxicity (Heparin, Nitro, Insulin, Cardizem)? @ -No Were any procedures done? @ -No Diagnosis/symptom? @ -Alcohol intoxication, alcohol abuse, impending DTs. Acute, or Chronic, or Acute on Chronic? @ -Acute on chronic Uncomplicated (without systemic symptoms) or Complicated (systemic symptoms)? @ -Uncomplicated Side effects of treatment? @ -No Exacerbation, Progression, or Severe Exacerbation? @ -Exacerbation Poses a threat to life or bodily function? How? (Chest pain, USA, MS, pneumonia, PE, COPD, DKA, ARF, appy, cholecystitis, CVA, Diverticulitis, Homicidal, Suicidal, threat to staff... and all critical care pts) @ -No (Efren Arrington) - Lab Data Lab Results 05/17/23 05/17/23 Range/Units 19:48 19:48 WBC 8.1 (3.8-10.6) k/uL RBC 5.31 (4.30-5.90) m/uL Hgb 15.9 (13.0-17.5) gm/dL Hct 47.4 (39.0-53.0) % MCV 89.3 (80.0-100.0) fL MCH 30.0 (25.0-35.0) pg MCHC 33.6 (31.0-37.0) g/dL RDW 13.4 (11.5-15.5) % Plt Count 208 (150-450) k/uL MPV 7.6 Neutrophils % 65 % Lymphocytes % 26 % Monocytes % 6 % Eosinophils % 1 % Basophils % 1 % Neutrophils # 5.3 (1.3-7.7) k/uL Lymphocytes # 2.1 (1.0-4.8) k/uL Monocytes # 0.5 (0-1.0) k/uL Eosinophils # 0.1 (0-0.7) k/uL Basophils # 0.1 (0-0.2) k/uL Sodium 142 (137-145) mmol/L Potassium 4.4 (3.5-5.1) mmol/L Chloride 97 L (98-107) mmol/L Carbon Dioxide 29 (22-30) mmol/L Anion Gap 16 mmol/L BUN 15 (9-20) mg/dL Creatinine 0.69 (0.66-1.25) mg/dL Est GFR (CKD-EPI)AfAm >90 (>60 ml/min/1.73 sqM) Est GFR (CKD-EPI)NonAf >90 (>60 ml/min/1.73 sqM) Glucose 112 H (74-99) mg/dL Calcium 9.4 (8.4-10.2) mg/dL Total Bilirubin 1.2 (0.2-1.3) mg/dL AST 218 H (17-59) U/L ALT 154 H (4-49) U/L Alkaline Phosphatase 81 (38-126) U/L Total Protein 9.1 H (6.3-8.2) g/dL Albumin 5.1 H (3.5-5.0) g/dL Serum Alcohol 361 H* mg/dL Disposition <Lisset Gauthier - Last Filed: 05/17/23 19:34> Is patient prescribed a controlled substance at d/c from ED?: No Time of Disposition: 22:00 Decision Date: 05/17/23 Decision Time: 22:00 <Efren Arrington - Last Filed: 05/17/23 22:00> Clinical Impression: Alcohol abuse, Alcohol intoxication Disposition: ADMITTED IP TO THIS HOSP Condition: Good Referrals: [facility],Clinic [Primary Care Provider] - 1-2 days
[2023-05-17 20:03] LABS: Basophils # (A) 0.1 k/uL (0-0.2); Basophils % (A) 1 %; Eosinophils # (A) 0.1 k/uL (0-0.7); Eosinophils % (A) 1 %; HCT 47.4 % (39.0-53.0); HGB 15.9 gm/dL (13.0-17.5); Lymphocytes # (A) 2.1 k/uL (1.0-4.8); Lymphocytes % (A) 26 %; MCHC 33.6 g/dL (31.0-37.0); MCV 89.3 fL (80.0-100.0); Mean Platelet Volume 7.6; Monocytes # (A) 0.5 k/uL (0-1.0); Monocytes % (A) 6 %; Neutrophils # (A) 5.3 k/uL (1.3-7.7); Neutrophils % (A) 65 %; Platelet Count 208 k/uL (150-450); RBC 5.31 m/uL (4.30-5.90); RDW 13.4 % (11.5-15.5); WBC 8.1 k/uL (3.8-10.6)
[2023-05-17 20:43] LABS: ALT 154 U/L (4-49); AST 218 U/L (17-59); African American GFR (CKD) >90 (>60 ml/min/1.73 sqM); Albumin 5.1 g/dL (3.5-5.0); Alkaline Phosphatase 81 U/L (38-126); Anion Gap 16 mmol/L; Blood Urea Nitrogen 15 mg/dL (9-20); Calcium 9.4 mg/dL (8.4-10.2); Carbon Dioxide 29 mmol/L (22-30); Chloride 97 mmol/L (98-107); Glucose 112 mg/dL (74-99); Non-African American GFR(CKD) >90 (>60 ml/min/1.73 sqM); Potassium 4.4 mmol/L (3.5-5.1); Sodium 142 mmol/L (137-145); Total Bilirubin 1.2 mg/dL (0.2-1.3); Total Protein 9.1 g/dL (6.3-8.2)
[2023-05-17 21:20] LABS: Alcohol 361 mg/dL
[2023-05-17 21:58] LABS: Appearance,Urine Clear (Clear); Bilirubin,Urine Negative (Negative); Blood,Urine Small (Negative); Color,Urine Yellow; Glucose,Urine (UA) Negative (Negative); Ketones,Urine Trace (Negative); Leukocyte Esterase,Urine Negative (Negative); Mucus,Urine Many /hpf; Nitrite,Urine Negative (Negative); Protein,Urine 1+ (Negative); RBC,Urine 1 /hpf (0-5); Specific Gravity,Urine 1.015 (1.001-1.035); Urobilinogen,Urine <2.0 mg/dL (<2.0); WBC,Urine 1 /hpf (0-5)
[2023-05-17] MEDS ORDERED: NALOXONE 0.4 MG/ML 1 ML VIAL IV PRN (22:02)
[2023-05-17] MEDS ORDERED: ONDANSETRON 4 MG/2 ML VIAL IVP PRN (22:02)
[2023-05-17] MEDS ORDERED: ACETAMINOPHEN TAB 325 MG TAB PO PRN (22:02)
[2023-05-17] MEDS ORDERED: LORazepam 2 MG/ML INJ IV PRN ×3 (22:05→23:44)
[2023-05-17] MEDS ORDERED: LORazepam 1 MG TAB PO PRN ×3 (22:05)
[2023-05-17] MEDS ORDERED: THIAMINE 100 MG/ML 2 ML VIAL IM STA (22:05)
[2023-05-17] MEDS: FOLIC ACID 1 MG TAB PO SCH (22:24)
[2023-05-17] MEDS: MULTIVITAMINS, THERA 1 EACH TAB PO SCH (22:25)
[2023-05-17] MEDS: LORazepam 0.5 MG TAB PO PRN (22:36)
[2023-05-17] MEDS ORDERED: chlordiazePOXIDE 25 MG CAP PO STA (23:45)
--- NOTE | 2023-05-18 00:10 | P.HPIM ---
History of Present Illness H&P Date: 05/17/23 Chief Complaint: alcohol withdrawal 47 year old male with alcohol dependance and history of alcohol withdrawal seizures patient coming in for concerns of withdrawal and fear of a seizure that he had in the past related to alcohol. he claims being sober for 8 months, but relapsed a week ago, and started drinking a fifth daily . he did not feel well today, and does not like the feeling of addiction, and trying to quit alcohol on his own, but started feeling strong shakes and agitation and was afraid of having a seizure and decided to come in seeking help to quit alcohol he reports epigastric discomfort , and vomiting few times this morning , non bloody non bilious. he denies any fever, chills, cough, sore throat, chest pain , trouble breathing , denies changes in urinary or bowel habits. admits to tobacco smoking, marijuana and heavy alcohol he is a retired review of systems Pertinent positives as noted in HPI. All other systems were reviewed and are negative on exam Constitutional: No acute distress, conversant, pleasant Eyes: Anicteric sclerae, moist conjunctiva, Pupils equal round reactive to light ENMT: NC/AT Oropharynx clear, no erythema, or exudates Neck: Supple, no masses, or JVD No carotid bruits No thyromegaly Lungs: Clear to auscultation Clear to percussion Normal respiratory effort, no accessory muscle use Cardiovascular: Heart regular in rate and rhythm, No murmurs, gallops, or rubs No peripheral edema Abdominal: Soft Nontender, no guarding, rebound or rigidity Abdomen moving with respiration Normoactive bowel sounds No hepatomegaly, No splenomegaly No palpable mass No abdominal wall hernia noted skin: pustular rosecea of the face Extremities: No digital cyanosis No clubbing Pedal pulses intact and symmetrical Radial pulses intact and symmetrical No calf tenderness Psychiatric: Alert and oriented to person, place and time Appropriate affect fair judgement Neuro Muscles Strength 5/5 in all 4 extremities Sensation to light touch grossly present throughout Cranial nerves II-XII grossly intact Lymphatics: no palpable cervical or supraclavicular lymph nodes Past Medical History Past Medical History: Hypertension, Seizure Disorder Additional Past Medical History / Comment(s): withdrawal related seizures for about 3 years, seizure 10/03/21 and 07/24/22 History of Any Multi-Drug Resistant Organisms: None Reported Past Surgical History: Orthopedic Surgery Past Anesthesia/Blood Transfusion Reactions: Unable to Obtain Past Psychological History: Depression, PTSD Smoking Status: Current every day smoker Past Alcohol Use History: Abuse, Daily, Heavy Past Drug Use History: Marijuana - Past Family History Father Family Medical History: COPD Medications and Allergies Home Medications Medication Instructions Recorded Confirmed Type Cholecalciferol [Vitamin D3 (25 50 mcg PO DAILY 01/12/22 05/17/23 History Mcg = 1000 Iu)] Multivitamins, Thera [Multivitamin 1 tab PO DAILY 01/12/22 05/17/23 History (formulary)] Folic Acid 1 mg PO DAILY 01/13/22 05/17/23 History Thiamine [Vitamin B-1] 100 mg PO DAILY 05/17/23 05/17/23 History Vitamin E (Dl,Tocopheryl Acet) 400 unit PO DAILY 05/17/23 05/17/23 History [Vitamin E (400 Iu = 180 mg)] Allergies Allergy/AdvReac Type Severity Reaction Status Date / Time Penicillins Allergy Swelling, Verified 05/17/23 22:07 rash, difficulty breathing Physical Exam Vitals: Vital Signs Temp Pulse Resp BP Pulse Ox 05/17/23 22:46 84 16 131/87 05/17/23 19:32 98 F 94 18 139/88 98 Intake and Output 05/17/23 05/17/23 05/18/23 14:59 22:59 06:59 Other: Weight 72.575 kg Results CBC & Chem 7: 05/17/23 19:48 05/17/23 19:48 Labs: Abnormal Lab Results - Last 24 Hours (Table) 05/17/23 05/17/23 Range/Units 19:48 21:09 Chloride 97 L (98-107) mmol/L Glucose 112 H (74-99) mg/dL AST 218 H (17-59) U/L ALT 154 H (4-49) U/L Total Protein 9.1 H (6.3-8.2) g/dL Albumin 5.1 H (3.5-5.0) g/dL Urine Protein 1+ H (Negative) Urine Ketones Trace H (Negative) Urine Blood Small H (Negative) Urine Mucus Many H (None) /hpf Serum Alcohol 361 H* mg/dL Assessment and Plan Assessment: 47 year old male with alcohol dependance , presented seeking alcohol detox and concerns regarding seizures due to history of DTs and seizure, I discussed the case with ED doc and I accepted the admission for alcohol withdrawal syndrome with anticipated length of stay > 2 midnights alcohol dependance with alcohol withdrawal syndrome seizure precautions thiamine IM then po daily Benzo per CIWA scale librium 50 mg po once IVF hydration with normal saline 100 cc per hour ETOH level 361 elevated liver enzymes , suspected to be secondary to alcohol abuse AST 218, ALT 154 monitor liver enzymes blood work otherwise unremarkable BUN 15, Cr 0.69 Na 142, K 4.4 Hgb 15.9, WBC 8.1 full code DVT PPX mechanical
[2023-05-18] MEDS: SODIUM CHLORIDE 0.9% 1,000 ML IV SCH ×3 (00:33→20:42)
[2023-05-18] MEDS ORDERED: LORazepam 2 MG/ML INJ IV STA (06:36)
[2023-05-18] MEDS: PANTOPRAZOLE 40 MG TABLET PO SCH (08:41)
[2023-05-18] MEDS: FOLIC ACID 1 MG TAB PO SCH (08:41)
[2023-05-18] MEDS: MULTIVITAMINS, THERA 1 EACH TAB PO SCH (08:42)
[2023-05-18] MEDS: ENOXAPARIN 40 MG/0.4 ML SYRINGE SQ SCH (08:42)
[2023-05-18] MEDS: THIAMINE 100 MG TAB PO SCH (08:47)
[2023-05-18] MEDS: LORazepam 0.5 MG TAB PO PRN ×3 (12:36→20:36)
--- NOTE | 2023-05-18 13:26 | P.PN ---
Subjective Progress Note Date: 05/18/23 No new complaints today. Appetite is good, withdrawal controlled. Gen: awake, alert HEENT: normocephalic, atraumatic, good hearing acuity, moist mucous membranes Resp: good air exchange, breathing comfortably with no accessory muscle use CVS: good distal perfusion x 4, GI: soft, NTTP, ND : no SPT, no CVAT, dumont catheter not present MSK: no pitting edema, no clubbing Neuro: non-focal, moving all extremities Psych: cooperative, euthymic mood Hospital Course: 47-year-old man with a medical history of alcohol dependence and history of alcohol withdrawal seizures presented for evaluation of alcohol intoxication and impending withdrawal. In the emergency room, patient was afebrile, 139/88, heart rate 94, 98% on room air. CBC is markable. Basic metabolic panel is unremarkable. Liver function tests showed AST of 218, ALT of 154, total protein 9.1, albumin of 5.1. Alcohol level was 361. UA showed trace ketones, small blood. Assessment/plan: Alcohol dependence Alcohol withdrawal syndrome -CIWA protocol with Ativan when necessary -Thiamine, folate, multivitamin -Cessation counseling provided -IV fluids Patient is full code Objective - Vital Signs Vital signs: Vital Signs Temp 98.2 F 05/18/23 07:00 Pulse 98 05/18/23 11:00 Resp 17 05/18/23 11:00 BP 133/88 05/18/23 11:00 Pulse Ox 96 05/18/23 09:00 FiO2 Intake & Output 05/17/23 05/18/23 05/18/23 18:59 06:59 18:59 Weight 72.575 kg - Labs CBC & Chem 7: 05/17/23 19:48 05/17/23 19:48 Labs: Abnormal Lab Results - Last 24 Hours (Table) 05/17/23 05/17/23 Range/Units 19:48 21:09 Chloride 97 L (98-107) mmol/L Glucose 112 H (74-99) mg/dL AST 218 H (17-59) U/L ALT 154 H (4-49) U/L Total Protein 9.1 H (6.3-8.2) g/dL Albumin 5.1 H (3.5-5.0) g/dL Urine Protein 1+ H (Negative) Urine Ketones Trace H (Negative) Urine Blood Small H (Negative) Urine Mucus Many H (None) /hpf Serum Alcohol 361 H* mg/dL
[2023-05-19] MEDS: SODIUM CHLORIDE 0.9% 1,000 ML IV SCH (05:50)
[2023-05-19 07:20] VITALS: BP 134/83; PULSE 85; RESP 17; TEMP 98.6
[2023-05-19] MEDS: MULTIVITAMINS, THERA 1 EACH TAB PO SCH (08:45)
[2023-05-19] MEDS: FOLIC ACID 1 MG TAB PO SCH (08:45)
[2023-05-19] MEDS: THIAMINE 100 MG TAB PO SCH (08:45)
[2023-05-19] MEDS: PANTOPRAZOLE 40 MG TABLET PO SCH (08:45)
[2023-05-19] MEDS: ENOXAPARIN 40 MG/0.4 ML SYRINGE SQ SCH (08:45)
--- NOTE | 2023-05-19 14:43 | P.DS ---
Providers Date of admission: 05/17/23 22:02 Expected date of discharge: 05/19/23 Attending physician: Luis Cha MD Primary care physician: [facility] Hospital Course: Alcohol dependence Alcohol withdrawal syndrome Hospital Course: 47-year-old man with a medical history of alcohol dependence and history of alcohol withdrawal seizures presented for evaluation of alcohol intoxication and impending withdrawal. In the emergency room, patient was afebrile, 139/88, heart rate 94, 98% on room air. CBC is markable. Basic metabolic panel is unremarkable. Liver function tests showed AST of 218, ALT of 154, total protein 9.1, albumin of 5.1. Alcohol level was 361. UA showed trace ketones, small blood. Pts withdrawal was well controlled after 1 night of hospitalization. he was discharged with ETOH cessation counseling, and recommendations to f/u with PCP. Gen: awake, alert HEENT: normocephalic, atraumatic, good hearing acuity, moist mucous membranes Resp: good air exchange, breathing comfortably with no accessory muscle use CVS: good distal perfusion x 4, GI: soft, NTTP, ND : no SPT, no CVAT, dumont catheter not present MSK: no pitting edema, no clubbing Neuro: non-focal, moving all extremities Psych: cooperative, euthymic mood Patient Condition at Discharge: Good Plan - Discharge Summary New Discharge Prescriptions: Continue Multivitamins, Thera [Multivitamin (formulary)] 1 tab PO DAILY Folic Acid 1 mg PO DAILY Thiamine [Vitamin B-1] 100 mg PO DAILY Cholecalciferol [Vitamin D3 (25 Mcg = 1000 Iu)] 50 mcg PO DAILY Vitamin E (Dl,Tocopheryl Acet) [Vitamin E (400 Iu = 180 mg)] 400 unit PO DAILY Discharge Medication List Cholecalciferol [Vitamin D3 (25 Mcg = 1000 Iu)] 50 mcg PO DAILY 01/12/22 [History] Multivitamins, Thera [Multivitamin (formulary)] 1 tab PO DAILY 01/12/22 [History] Folic Acid 1 mg PO DAILY 01/13/22 [History] Thiamine [Vitamin B-1] 100 mg PO DAILY 05/17/23 [History] Vitamin E (Dl,Tocopheryl Acet) [Vitamin E (400 Iu = 180 mg)] 400 unit PO DAILY 05/17/23 [History] Follow up Appointment(s)/Referral(s): [facility],Clinic [Primary Care Provider] - 1-2 days Patient Instructions/Handouts: Alcohol Intoxication (DC) Activity/Diet/Wound Care/Special Instructions: Follow up as directed, sooner if problems or concerns. Discharge/Stand Alone Forms: AA Meetings [address] - [facility], AA Meetings [facility], Who Do I Call?, Community Resources, Outpatient Counseling, In Substance Abuse Facilities Discharge Disposition: HOME SELF-CARE
== END 2023-05-19 11:33 | disposition home or self-care (01) ==
LOC: EC 17:47 → 6NMEDSUR 22:02
PROVIDERS: ADMIT Internal Medicine; ATTEND Internal Medicine
DX: F10.239 Alcohol dependence with withdrawal, unspecified (principal); Y90.8 Blood alcohol level of 240 mg/100 ml or more; I10 Essential (primary) hypertension; R74.8 Abnormal levels of other serum enzymes; F32.A Depression, unspecified; F43.10 Post-traumatic stress disorder, unspecified; F17.200 Nicotine dependence, unspecified, uncomplicated; Z79.899 Other long term (current) drug therapy; Z88.0 Allergy status to penicillin
CPT/HCPCS: 96361; 96372 ×3; 96374; 99285; 36415; 93005; 80053; 85025; 81001; 80320; G0378 ×3; J3411; J2405; J1650 ×2

== ENCOUNTER 2024-02-19 18:29 | Emergency (ER) | payer OTHER ==
[2024-02-19 18:34] VITALS: RESP 18; TEMP 98
--- NOTE | 2024-02-19 18:53 | ED ---
General Adult HPI - General Chief complaint: Alcohol Stated complaint: ETOH Withdrawal Time Seen by Provider: 02/19/24 18:43 Source: patient, family, RN notes reviewed Mode of arrival: ambulatory Limitations: no limitations - History of Present Illness Initial comments: Patient is a 48-year-old male presenting to the emergency department with concerns for alcohol withdrawal. Patient has been sober for a year and a half. Patient started drinking again last week. Last alcohol was around 8:00 last night except for 2 shots prior to arrival. Patient has been having some nausea and vomiting today. Patient feels shaky. - Related Data Home Medications Medication Instructions Recorded Confirmed Cholecalciferol [Vitamin D3 (25 50 mcg PO DAILY 01/12/22 02/19/24 Mcg = 1000 Iu)] Multivitamins, Thera [Multivitamin 1 tab PO DAILY 01/12/22 02/19/24 (formulary)] Thiamine [Vitamin B-1] 100 mg PO DAILY 05/17/23 02/19/24 Atorvastatin [Lipitor] 20 mg PO HS 02/19/24 02/19/24 Previous Rx's Medication Instructions Recorded LORazepam [Ativan] 1 mg PO TID PRN #8 tab 02/19/24 Ondansetron Odt [Zofran Odt] 4 mg PO Q8HR PRN #10 tab 02/19/24 Allergies Allergy/AdvReac Type Severity Reaction Status Date / Time Penicillins Allergy Swelling, Verified 02/19/24 19:33 rash, difficulty breathing Review of Systems ROS Statement: Those systems with pertinent positive or pertinent negative responses have been documented in the HPI. ROS Other: All systems not noted in ROS Statement are negative. Constitutional: Denies: fever Eyes: Denies: eye pain ENT: Denies: ear pain Respiratory: Denies: dyspnea Cardiovascular: Denies: chest pain Gastrointestinal: Reports: as per HPI, nausea, vomiting Musculoskeletal: Denies: back pain Past Medical History Past Medical History: Hypertension, Seizure Disorder Additional Past Medical History / Comment(s): withdrawal related seizures for about 3 years, seizure 10/03/21 and 07/24/22 History of Any Multi-Drug Resistant Organisms: None Reported Past Surgical History: Orthopedic Surgery Past Anesthesia/Blood Transfusion Reactions: Unable to Obtain Past Psychological History: Depression, PTSD Smoking Status: Current every day smoker Past Alcohol Use History: Abuse, Daily, Heavy Past Drug Use History: Marijuana - Past Family History Father Family Medical History: COPD General Exam Limitations: no limitations General appearance: alert, in no apparent distress Head exam: Present: normocephalic Eye exam: Present: normal appearance Neck exam: Present: normal inspection Respiratory exam: Present: normal lung sounds bilaterally Cardiovascular Exam: Present: tachycardia GI/Abdominal exam: Present: soft. Absent: tenderness Extremities exam: Present: normal inspection Neurological exam: Present: alert Psychiatric exam: Present: normal affect, normal mood Skin exam: Present: normal color Course Vital Signs 02/19/24 18:31 Temperature 98 F Pulse Rate 114 H Respiratory 18 Rate Blood Pressure 170/81 O2 Sat by Pulse 98 Oximetry Medical Decision Making - Medical Decision Making Was pt. sent in by a medical professional or institution (, PA, AGRONOMY INSTRUCTOR, urgent care, hospital, or detention...) When possible be specific @ -No Did you speak to anyone other than the patient for history (EMS, parent, family, police, friend...)? What history was obtained from this source @ -No Did you review nursing and triage notes (agree or disagree)? Why? @ -I reviewed and agree with nursing and triage notes Were old charts reviewed (outside hosp., previous admission, EMS record, old EKG, old radiological studies, urgent care reports/EKG's, detention records)? Report findings @ -No old charts were reviewed Differential Diagnosis (chest pain, altered mental status, abdominal pain women, abdominal pain men, vaginal bleeding, weakness, fever, dyspnea, syncope, headache, dizziness, GI bleed, back pain, seizure, CVA, palpatations, mental health, musculoskeletal)? @ -Differential Palpitations Ventricular arrhythmias, atrial arrhythmias, myocardial infarction, anemia, thyrotoxicosis, electrolyte imbalance, hypokalemia, pulmonary embolism, pulmonary disease, drugs, alcohol, anxiety, stress.... This is not meant to be an all-inclusive list. EKG interpreted by me (3pts min.). @ -As above X-rays interpreted by me (1pt min.). @ -None done CT interpreted by me (1pt min.). @ -None done U/S interpreted by me (1pt. min.). @ -None done What testing was considered but not performed or refused? (CT, X-rays, U/S, labs)? Why? @ -None What meds were considered but not given or refused? Why? @ -None Did you discuss the management of the patient with other professionals (professionals i.e. , PA, AGRONOMY INSTRUCTOR, lab, RT, psych nurse, social media coordinator, electrician deck, teacher, conservation science officer, assistant case manager)? Give summary @ -No Was smoking cessation discussed for >3mins.? @ -No Was critical care preformed (if so, how long)? @ -No Were there social determinants of health that impacted care today? How? (Homelessness, low income, unemployed, alcoholism, drug addiction, transportation, low edu. Level, literacy, decrease access to med. care, skilled nursing, rehab)? @ -No Was there de-escalation of care discussed even if they declined (Discuss DNR or withdrawal of care, Hospice)? DNR status @ -No What co-morbidities impacted this encounter? (DM, HTN, Smoking, COPD, CAD, Cancer, CVA, ARF, Chemo, Hep., AIDS, mental health diagnosis, sleep apnea, morbid obesity)? @ -None Was patient admitted / discharged? Hospital course, mention meds given and route, prescriptions, significant lab abnormalities, going to OR and other pertinent info. @ -Patient presents with concerns for alcohol withdrawal. Repeat CIWA is low and patient will be discharged with Ativan. Patient is comfortable with discharge Undiagnosed new problem with uncertain prognosis? @ -No Drug Therapy requiring intensive monitoring for toxicity (Heparin, Nitro, Insulin, Cardizem)? @ -No Were any procedures done? @ -No Diagnosis/symptom? @ -Alcohol withdrawal Acute, or Chronic, or Acute on Chronic? @ -Acute Uncomplicated (without systemic symptoms) or Complicated (systemic symptoms)? @ -Default Side effects of treatment? @ -No Exacerbation, Progression, or Severe Exacerbation? @ -No Poses a threat to life or bodily function? How? (Chest pain, [place], [place], pneumonia, PE, COPD, DKA, ARF, appy, cholecystitis, CVA, Diverticulitis, Homicidal, Suicidal, threat to staff... and all critical care pts) @ -No - Lab Data Result diagrams: 02/19/24 18:54 02/19/24 18:54 Lab Results 02/19/24 02/19/24 Range/Units 18:54 18:54 WBC 10.5 (3.8-10.6) k/uL RBC 4.97 (4.30-5.90) m/uL Hgb 14.6 (13.0-17.5) gm/dL Hct 44.3 (39.0-53.0) % MCV 89.0 (80.0-100.0) fL MCH 29.5 (25.0-35.0) pg MCHC 33.1 (31.0-37.0) g/dL RDW 13.1 (11.5-15.5) % Plt Count 141 L (150-450) k/uL MPV 8.0 Neutrophils % 89 % Lymphocytes % 6 % Monocytes % 4 % Eosinophils % 1 % Basophils % 0 % Neutrophils # 9.3 H (1.3-7.7) k/uL Lymphocytes # 0.6 L (1.0-4.8) k/uL Monocytes # 0.4 (0-1.0) k/uL Eosinophils # 0.1 (0-0.7) k/uL Basophils # 0.0 (0-0.2) k/uL Sodium 133 L (137-145) mmol/L Potassium 3.6 (3.5-5.1) mmol/L Chloride 89 L (98-107) mmol/L Carbon Dioxide 27 (22-30) mmol/L Anion Gap 17 mmol/L BUN 22 H (9-20) mg/dL Creatinine 0.67 (0.66-1.25) mg/dL Est GFR (CKD-EPI)AfAm >90 (>60 ml/min/1.73 sqM) Est GFR (CKD-EPI)NonAf >90 (>60 ml/min/1.73 sqM) Glucose 147 H (74-99) mg/dL Calcium 9.8 (8.4-10.2) mg/dL Magnesium 1.7 (1.6-2.3) mg/dL Total Bilirubin 1.7 H (0.2-1.3) mg/dL AST 349 H (17-59) U/L ALT 193 H (4-49) U/L Alkaline Phosphatase 66 (38-126) U/L Total Protein 8.5 H (6.3-8.2) g/dL Albumin 5.4 H (3.5-5.0) g/dL Serum Alcohol 48 mg/dL Disposition Clinical Impression: Alcohol withdrawal Disposition: HOME SELF-CARE Condition: Stable Instructions (If sedation given, give patient instructions): Alcohol Withdrawal (ED) Additional Instructions: Prescription sent to pharmacy. Please follow-up with primary care physician beginning the week. Return for vomiting, not tolerating oral intake, increased heart rate, agitation, worsening symptoms or other concerns or seizures. Prescriptions: LORazepam [Ativan] 1 mg PO TID PRN #8 tab PRN Reason: Anxiety Ondansetron Odt [Zofran Odt] 4 mg PO Q8HR PRN #10 tab PRN Reason: Nausea Is patient prescribed a controlled substance at d/c from ED?: Yes When asked, does pt state using other controlled substances?: No If prescribed controlled substance>3 days was MAPS reviewed?: Prescribed <3 Days Referrals: [facility],Clinic [Primary Care Provider] - 1-2 days Forms: [facility] [address] - [facility], In Substance Abuse Facilities Time of Disposition: 21:04
[2024-02-19] MEDS: SODIUM CHLORIDE 0.9% 1,000 ML IV STA (18:58)
[2024-02-19] MEDS: ONDANSETRON 4 MG/2 ML VIAL IVP STA (18:58)
[2024-02-19 18:59] LABS: Basophils % (A) 0 %; Eosinophils # (A) 0.1 k/uL (0-0.7); Eosinophils % (A) 1 %; HCT 44.3 % (39.0-53.0); HGB 14.6 gm/dL (13.0-17.5); Lymphocytes # (A) 0.6 k/uL (1.0-4.8); Lymphocytes % (A) 6 %; MCH 29.5 pg (25.0-35.0); MCHC 33.1 g/dL (31.0-37.0); Monocytes # (A) 0.4 k/uL (0-1.0); Monocytes % (A) 4 %; Neutrophils # (A) 9.3 k/uL (1.3-7.7); Neutrophils % (A) 89 %; Platelet Count 141 k/uL (150-450); RBC 4.97 m/uL (4.30-5.90); RDW 13.1 % (11.5-15.5); WBC 10.5 k/uL (3.8-10.6)
[2024-02-19] MEDS: THIAMINE 100 MG/ML 2 ML VIAL IM STA (18:59)
[2024-02-19] MEDS: FAMOTIDINE 20 MG/2 ML VIAL IV STA (18:59)
[2024-02-19] MEDS: LORazepam 2 MG/ML INJ IV STA ×2 (18:59→21:22)
[2024-02-19 19:33] LABS: ALT 193 U/L (4-49); AST 349 U/L (17-59); African American GFR (CKD) >90 (>60 ml/min/1.73 sqM); Albumin 5.4 g/dL (3.5-5.0); Alcohol 48 mg/dL; Alkaline Phosphatase 66 U/L (38-126); Anion Gap 17 mmol/L; Blood Urea Nitrogen 22 mg/dL (9-20); Calcium 9.8 mg/dL (8.4-10.2); Carbon Dioxide 27 mmol/L (22-30); Chloride 89 mmol/L (98-107); Glucose 147 mg/dL (74-99); Magnesium 1.7 mg/dL (1.6-2.3); Non-African American GFR(CKD) >90 (>60 ml/min/1.73 sqM); Potassium 3.6 mmol/L (3.5-5.1); Sodium 133 mmol/L (137-145); Total Bilirubin 1.7 mg/dL (0.2-1.3); Total Protein 8.5 g/dL (6.3-8.2)
[2024-02-19 21:21] VITALS: BP 155/88; PULSE 117
[2024-02-19] MEDS: LORazepam 1 MG TAB PO STA (21:22)
== END 2024-02-19 21:30 | disposition home or self-care (01) ==
LOC: EC 18:29
DX: F10.239 Alcohol dependence with withdrawal, unspecified (principal); F17.200 Nicotine dependence, unspecified, uncomplicated; Z88.0 Allergy status to penicillin; Y90.2 Blood alcohol level of 40-59 mg/100 ml
CPT/HCPCS: 36415; 80053; 83735; 85025; 80320; 99285; 96374; 96375 ×2; 96376; 96361 ×2; 96372; J2060; J3411; J2405; J3490